=== PATIENT | male | born 1945 | race Caucasian/White ===

== ENCOUNTER 2021-07-25 09:21 | Outpatient (RCR) | payer OTHER, SELFPAY | END 2021-08-21 23:59 | disposition home or self-care (01) | LOC: SPT 09:21 | PROVIDERS: PCP Family Medicine; Referring Provider Family Medicine; Visit Provider Family Medicine | DX: R26.0 Ataxic gait (principal) | CPT/HCPCS: 97110; 97112; 97162 ==

== ENCOUNTER 2021-08-15 11:46 | Outpatient (CLI) | payer OTHER, SELFPAY ==
--- NOTE | 2021-08-15 12:10 | CT_ITS ---
WS: [id number] CT CHEST TECHNIQUE: Contrast enhanced CT of the chest with coronal and sagittal reformatted images. CLINICAL INFORMATION: H/O LUNG CANCER INCREASED CONGESTION COMPARISON: None. DLP: 877.[address] scans at [facility] use at least one of these dose optimization techniques: automated e xposure control; mA and/or kV adjustment per patient size (includes targeted exams where dose is matc hed to clinical indication); or iterative reconstruction. FINDINGS: No comparisons available Moderate chronic emphysematous changes. Round atelectasis in the right infrahilar extending along the posterior mediastinum with air bronchograms. Small left pleural effusion. No other suspicious pulmon yadira parenchymal abnormalities Heterogeneous nodule involving the thyroid isthmus measuring 2.7 x 2.2 CM. No axillary lymphadenopath y. A few prominent paratracheal lymph nodes the largest measuring 1.3 CM. No hilar lymphadenopathy. Aortic calcification. Normal caliber thoracic aorta. Sternotomy. Adrenal glands are normal. Small left renal cyst measuring 1.5 cm. Cholelithiasis. Normal GE junction. Fatty atrophy of the pancreas. Sternotomy with mediastinal clips. CT/CT chest w con* [id number] IMPRESSION: 1. Moderate chronic edematous changes. 2. Region of partial consolidation in the right infrahilar and right lower lob e with air bronchograms consistent with round atelectasis. Measuring 4.3 x 2.2 cm 3. Small left pleural effusion. 4. No other suspicious pulmonary parenchymal opacities. 5. Prominent pretracheal lymph node measuring 1.3 cm. 6. Cholelithiasis. This can be followed up with ultrasound. 7. Left renal cyst measuring 1.5 CM. 8. Heterogeneous nodule involving the thyroid isthmus measuring 2.7 x 2.2 CCM
--- NOTE | 2021-08-15 12:11 | USCV_ITS ---
Garcia Lundy Age: 76 Gender: M : 1945 Exam Date: 08/15/2021 12:22 Ordering Phys: Fouzia Carpenter MD Technologist: Honey Norman [place] [facility] [place]: SOB BP: 148 / 72 HR: 76 Rhythm: Sinus Technical Quality: Adequate MEASUREMENTS (Male / Female) Normal Values 2D ECHO LV Diastolic Diameter PLAX 4.6 cm 4.2 - 5.9 / 3.9 - 5.3 cm LV Systolic Diameter PLAX 3.9 cm LV Chamber Size 4.1 cm IVS Diastolic Thickness 0.9 cm 0.6 - 1.0 / 0.6 - 0.9 cm IVS Systolic Thickness 1.5 cm LVPW Diastolic Thickness 1.4 cm 0.6 - 1.0 / 0.6 - 0.9 cm LVPW Systolic Thickness 1.2 cm RV Chamber Size 2.9 cm LVOT Diameter 2.1 cm LV Ejection Fraction 2D Teich 32.8 % LV Ejection Fraction MOD 2C 52.0 % LV Ejection Fraction 2C AL 51.9 % LA Diameter 3.8 cm LA Width 3.3 cm LA Height 4.0 cm RA Width 3.4 cm RA Height 4.2 cm Aorta at Sinotubular Diameter 3.5 cm M-MODE Aortic Annulus Diameter 3.5 cm LA Ao Ratio MM 1.3 DOPPLER AV Peak Velocity 111.0 cm/s LVOT Peak Velocity 62.0 cm/s AV Area Cont Eq vti 1.9 cm squared AV Area Cont Eq pk 1.9 cm squared MV Area PHT 4.4 cm squared Mitral E to A Ratio 1.5 MV E' Velocity 60.5 cm/s Mitral E to MV E' Ratio 14.6 Mitral E to LV E' Lateral Ratio 10.3 Mitral E to LV E' Septal Ratio 25.5 TR Peak Velocity 188.2 cm/s TR Peak Gradient 14.2 mmHg TR Mean Velocity 116.5 cm/s TR Mean Gradient 6.6 mmHg TR Velocity Time Integral 38.8 cm TV Peak E Velocity 90.0 cm/s Right Atrial Pressure 3.0 mmHg Pulmonary Artery Systolic Pressu 17.2 mmHg PV Peak Velocity 56.0 cm/s RV Acceleration Time 0.1 s RV Ejection Time 0.3 s RV AcT/ET 0.3 FINDINGS Left Ventricle Normal left ventricular size. LV systolic function is normal with EF of 50-55%. No regional wall motion abnormalities. Grade 2 diastolic dysfunction Right Ventricle The right ventricle is normal in size and function. Right Atrium The right atrium is normal in size. Left Atrium The left atrium is mildly dilated Mitral Valve Mitral valve is thickened without significant stenosis or prolapse. There is mild mitral regurgitation. Aortic Valve Structurally normal aortic valve without significant sclerosis or stenosis. There is no aortic regurgitation. Tricuspid Valve Structurally normal tricuspid valve without significant stenosis or regurgitation. Insufficient TR jet to calculate RVSP Pulmonic Valve Structurally normal pulmonic valve without significant stenosis. There is no pulmonic regurgitation. Pericardium Normal pericardium without effusion. Aorta Normal ascending aorta dimension. CONCLUSIONS LV systolic function is normal with EF of 50-55%. Grade 2 diastolic dysfunction Mildly dilated LA Mild mitral regurgitation No comparison studies are available Pedro Cuellar MD (Electronically Signed) Final Date: 21 August 2021 11:17 S
[2021-08-15] MEDS: iodixanol 320 mg/mL 100mL Btl IV (12:58)
== END 2021-08-15 11:47 | disposition home or self-care (01) ==
LOC: US 11:50
PROVIDERS: PCP Family Medicine; Visit Provider Family Medicine
DX: I50.9 Heart failure, unspecified (principal); Z85.118 Personal history of other malignant neoplasm of bronchus and lung; R06.02 Shortness of breath; I34.0 Nonrheumatic mitral (valve) insufficiency
CPT/HCPCS: 71260; 93306

== ENCOUNTER 2021-08-22 06:00 | Outpatient (RCR) | payer OTHER, SELFPAY | END 2021-09-21 23:59 | disposition home or self-care (01) | LOC: SPT 06:00 | PROVIDERS: PCP Family Medicine; Referring Provider Family Medicine; Visit Provider Family Medicine | DX: M54.50 Low back pain, unspecified (principal) | CPT/HCPCS: 97110 ==

== ENCOUNTER 2021-11-20 08:01 | Outpatient (CLI) | payer OTHER, SELFPAY ==
--- NOTE | 2021-11-20 08:06 | USCV_ITS ---
Garcia Lundy Age: 76 Gender: M : 1945 Exam Date: 11/20/2021 08:24 Ordering Phys: Marcelo De Santiago DO Technologist: Martha Price Exam Location: [facility] – [place] Indication: RIGHT BRUIT Risk Factors: Previous Vascular Surgery: Right Brachial BP: / Left Brachial BP: / Right Left Velocity (cm/s) Spectral Plaque Velocity (cm/s) Spectral Plaque Syst/Diast Broadening Syst/Diast Broadening 86.00/ 11.00 Prox CCA 76.10 / 18.70 69.50/ 7.70 Mid CCA 56.20 / 19.80 116.90/13.20 Distal CCA 42.70 / 19.40 / Prox ICA 65.80 / 22.20 / Mid ICA 95.80 / 27.00 / Distal ICA 96.10 / 31.70 195.90 ECA 633.50 ICA/CCA 1.26 Not Vertebral Antegrade Visualized / cm/s 62.40/ 9.40 cm/s Bi Subclavian Tri 188.5 197.3 0 0 CONCLUSIONS Left ICA stenosis <50%. Stenosis left ECA >50% Normal antegrade Doppler flow noted in the left vertebral artery. Right ICA appears occluded just distal to carotid bulb. Recommend further evaluation with CTA. Moderate atheromatous plaque right CCA and carotid bulb.. Right vertebral artery not visualized Syd Arriaga MD (Electronically Signed) Final Date: 20 November 2021 10:41 S
== END 2021-11-20 08:02 | disposition home or self-care (01) ==
LOC: RAD 08:03
PROVIDERS: PCP Family Medicine; Visit Provider Emergency Medicine Emergency Medical Services
DX: R09.89 Other specified symptoms and signs involving the circulatory and respiratory systems (principal); I65.23 Occlusion and stenosis of bilateral carotid arteries
CPT/HCPCS: 93880

== ENCOUNTER 2021-12-03 12:43 | Outpatient (CLI) | payer OTHER, SELFPAY ==
--- NOTE | 2021-12-03 13:03 | US_ITS ---
WS: [id number] ULTRASOUND THYROID TECHNIQUE: Ultrasound of the thyroid. CLINICAL INFORMATION: CYST ON THYROID COMPARISON: None. FINDINGS: Left thyroid is surgically absent. Enlarged heterogeneous right thyroid with multiple nodul es compatible with multinodular goiter. Solid right thyroid nodule measuring 1.2 x 1.9 x 0.9 CCM. Add itional dominant nodule on the isthmus measuring 2.9 x 1.5 x 2.7 CCM. Thyroid: Right and left thyroid lobes are normal in size and echotexture. No thyroid nodules are pres ent. Right thyroid lobe: cm x 2.0 cm x 2.8 cm Isthmus: 1.5 mm. Cervical lymphadenopathy: None. US/US thyroid [id number] IMPRESSION: 1. Left thyroid lobe is surgically absent. 2. Enlarged heterogeneous right thyroid lobe with multiple nodules compatible with multinodular goiter. 3. Dominant nodule along the isthmus measuring 2.9 x 1.5 x 2.7 CM. This can be further evaluated with FNA.
== END 2021-12-03 12:44 | disposition home or self-care (01) ==
LOC: RAD 12:44
PROVIDERS: PCP Family Medicine; Visit Provider Emergency Medicine Emergency Medical Services
DX: Z01.89 Encounter for other specified special examinations (principal); E04.1 Nontoxic single thyroid nodule
CPT/HCPCS: 76536

== ENCOUNTER 2021-12-22 14:05 | Inpatient (IN) | payer OTHER, SELFPAY ==
[2021-12-22 14:22] VITALS: BP 151/88; O2SAT 91; BMI 25.0
--- NOTE | 2021-12-22 14:23 | XR_ITS ---
WS: [id number] XR chest 1V portable [id number] REASON FOR EXAM: dyspnea FINDINGS: Previous sternotomy with multiple clips indicating multi lesion multi vessel coronary artery bypass s urgery. Thoracic aorta normal for age. Normal heart size. Diffuse reticular and groundglass lung opacities in the left mid and lower lung koo. Similar type lung opacities in the right upper peripheral lung field. Bony thorax intact. XR/XR chest 1V portable [id number] IMPRESSION: Bilateral lung opacities as above. Findings are compatible with subacute pneumo nitis. The location and appearance of the abnormality in the right lung is very suggestive of Covid pneumonitis. Findings are not suggestive of congestive heart failure.
[2021-12-22 14:32] LABS: Basophils % 0.1 %; Hematocrit 43.9 % (42.0-52.0); Hemoglobin 14.6 g/dL (11.7-16.6); Lymphocytes # 0.9 10^3/uL (0.8-4.8); Lymphocytes % 8.6 %; Mean Corpuscular HGB Conc 33.3 g/dL (30.0-36.0); Mean Corpuscular Hemoglobin 29.8 pg (28.0-34.0); Mean Corpuscular Volume 89.6 fl (80-94); Mean Platelet Volume 11.8 fL (7.4-10.4); Monocytes # 0.8 10^3/uL (0.2-0.9); Monocytes % 7.7 %; Neutrophils # 8.95 10^3/uL (1.8-7.7); Neutrophils % 82.8 %; Nucleated Red Blood Cells % 0 %; Platelet Count 262 10^3/cmm (130-400); Red Cell Distribution Width 13.3 % (12.1-15.1); White Blood Count 10.8 10^3/uL (4.0-10.0)
[2021-12-22 14:56] LABS: Troponin(5th) Baseline 57 ng/L (0-15)
[2021-12-22 15:00] LABS: NT Pro B Type Natriuretic Pept 3202 pg/mL (0-450); Procalcitonin 0.28 ng/mL (0-0.5)
[2021-12-22 15:08] LABS: Alanine Aminotransferase 25 U/L (0-41); Albumin Level 3.7 g/dL (3.5-5.2); Alkaline Phosphatase 81 IU/L (40-130); Anion Gap 18.5 (5-19); Aspartate Amino Transferase 57 U/L (0-40); Blood Urea Nitrogen 20 mg/dL (8-23); Calcium 9.4 mg/dL (8.5-10.5); Carbon Dioxide 19 mmol/L (22-29); Chloride 104 mmol/L (98-107); Globulin 3.2 g/dL (1.3-4.6); Glucose 292 mg/dL (65-115); Lipase 38 U/L (13-60); Osmolality Calculated 299 mOsm/kg (285-295); Potassium 3.5 mmol/L (3.5-5.1); Sodium 138 mmol/L (136-145); Total Bilirubin 0.8 mg/dL (0.15-1.2); Total Protein 6.9 g/dL (6.6-8.7)
[2021-12-22 15:12] LABS: C Reactive Protein 88.4 mg/L (0.0-4.9)
--- NOTE | 2021-12-22 15:26 | ED_ITS ---
HPI - General Adult General: Chief complaint: Shortness of Breath/Dyspnea Stated complaint: COUGH, SOB, CONFUSED Time Seen by Provider: 12/22/21 14:23 History of Present Illness: CC: Shortness of breath, fever and generalized weakness HPI: This is a [76]yo patient w/ hx of CABG x 5, CHF, HTN, DM presenting to the ED with malaise, generalized weakness, cough sputum production, and fever at home x 5days. Since onset of symptoms, has had some shortness of breath and decreased PO intake. NO recent travel. Reports nausea/vomiting/diarrhea. Denies []chest pain, diaphoresis, other GI or complaints. Denies any pleuritic chest pain, recent surgery/immobilization/travel, or hematemesis or hx of VTE in the past. Onset: 5 days ago Duration: ongoing for the last 5 days Location: home Severity: moderate Associated symptoms: Reports dyspnea, malaise, nausea and vomiting; Deny chest pain, rash or palpitations Review of Systems Const: Reports: fever(s), chills, fatigue, malaise and other (generalized weakness) Eyes: Denies: change in vision ENMT: Denies: mouth pain Card: Denies: chest pain or palpitations Resp: Reports: dyspnea and non-productive cough GI: Reports: nausea, vomiting and diarrhea; Denies: abdominal pain : Denies: dysuria Musc: Denies: extremity pain Skin/Breast: Denies: rash or new lesions Neuro: Denies: weakness in extremities Psych: Reports: other (Normal mood) [place]/Lymph: Denies: easy bruising PFS ED PFSH: Medical History Atherosclerotic heart disease of [place] coronary artery with unspecified angina pectoris Coronary stent occlusion Essential hypertension Gastro-esophageal reflux disease without esophagitis History of left common carotid artery stent placement Hyperlipidemia, unspecified Low back pain Malignant neoplasm of bronchus Type 2 diabetes mellitus Type 2 diabetes mellitus with diabetic nephropathy Surgical History S/P CABG x 5 Family History Brother CHF (congestive heart failure) Mother Lymphoma Sister Cancer Father No problems noted. Social History Smoking and tobacco status: former smoker Alcohol intake: never Physical Exam Const: COMMON NORMALS: alert HENMT: COMMON NORMALS: atraumatic HEAD & SCALP: atraumatic MOUTH: moist mucous membranes not abnormal Eye: COMMON NORMALS: EOMs intact bilaterally and conjunctivae normal CONJUNCTIVA: Yes conjunctivae normal Neck/C-Spine: COMMON NORMALS: full ROM and supple Resp: COMMON NORMALS: normal respiratory effort and clear to auscultation bila terally AUSCULTATION: clear to auscultation bilaterally Cardio: COMMON NORMALS: regular rate RATE: regular rate GI: COMMON NORMALS: Soft to palpation and non-tender PALPATION: Yes Soft to palpation Extremity: COMMON NORMALS: full ROM Neuro: SENSORIUM/ORIENTATION: Yes alert MOTOR EXAM: No Abnormal motor strength present and Other motor observations present (no focal motor deficits) Psych: COMMON NORMALS: speech normal SPEECH: Yes normal speech MOOD & AFFECT: Yes euthymic mood Course Vital Signs: Vital signs: Vital Signs Blood Pressure 151/88 12/22/21 14:22 Pulse Oximetry 91 12/22/21 14:22 [facility] - General Adult Medical Decision Making [76]yo patient presenting to the ED with shortness of breath, cough, and malaise concerning for pneumonia with findings of fever, coarse breath sound and hypoxemia to 85% that imrpoved to 93% on 5-6L of NC. Given History, Exam, and Workup presentation most consistent with pneumonia.Presentation not consistent with PE, COPD exacerbation, Pneumothorax, TB, Atypical ACS, Esophageal Rupture, Toxic Exposure, Foreign Body Airway Obstruction. Workup: XR Chest, Covid labs Intervention: Tylenol 1gram, PO challenge, serial reassessment, oxygen, remdesivir/decadron/tocilizumab [3:13pm] On reassessment, XR findings of ground-glass opacity consistent iwth covid Findings consistent with viral pneumonia, suspected COVID. Clinically, fever improved with tylenol. Patient continues to be in moderate respiratory distress with O2 sat at 93% on 6LC that dropped significally on ambulation while observed in the ED. Multiple comorbidities along with no significant improvement in the ED indicates the patient is a candidate for inpatient admission. I have offered admission and the patient agrees with the plan. Patient continues to AAOx3, without significant increased work of breathing and I do not suspect the patient will decompensate on the wards requiring invasive and non-invasive positive pressure ventilation. ProBNP of 3K will give 40mg of lasix. Troponin of 57 likely demand related --- will trend. S/p ASA Disposition: Admission. Lab Data : 12/22/21 14:25 12/22/21 14:25 Radiology Impressions Chest X-Ray 12/22/21 14:23 IMPRESSION: Bilateral lung opacities as above. Findings are compatible with subacute pneumonitis. The location and appearance of the abnormality in the right lung is very suggestive of Covid pneumonitis. Findings are not suggestive of congestive heart failure. Laboratory Results WBC 10.8 10^3/uL (4.0-10.0) H 12/22/21 14:25 RBC 4.90 10^6/uL (4.1-5.3) 12/22/21 14:25 Hgb 14.6 g/dL (11.7-16.6) 12/22/21 14:25 Hct 43.9 % (42.0-52.0) 12/22/21 14:25 MCV 89.6 fl (80-94) 12/22/21 14:25 MCH 29.8 pg (28.0-34.0) 12/22/21 14:25 MCHC 33.3 g/dL (30.0-36.0) 12/22/21 14:25 RDW 13.3 % (12.1-15.1) 12/22/21 14:25 Plt Count 262 10^3/cmm (130-400) 12/22/21 14:25 MPV 11.8 fL (7.4-10.4) H 12/22/21 14:25 Neut % (Auto) 82.8 % 12/22/21 14:25 Lymph % (Auto) 8.6 % 12/22/21 14:25 [place] % (Auto) 7.7 % 12/22/21 14:25 Eos % (Auto) 0.0 % 12/22/21 14:25 Baso % (Auto) 0.1 % 12/22/21 14:25 Neut # (Auto) 8.95 10^3/uL (1.8-7.7) H 12/22/21 14:25 Lymph # (Auto) 0.9 10^3/uL (0.8-4.8) 12/22/21 14:25 [place] # (Auto) 0.8 10^3/uL (0.2-0.9) 12/22/21 14:25 Eos # (Auto) 0.0 10^3/uL (0.0-0.8) 12/22/21 14:25 Baso # (Auto) 0.0 10^3/uL (0.0-0.1) 12/22/21 14:25 Nucleated RBC % (auto) 0 % 12/22/21 14:25 Nucleated RBCs # 0.0 /100WBC 12/22/21 14:25 Sodium 138 mmol/L (136-145) 12/22/21 14:25 Sodium Cancelled 12/22/21 14:25 Potassium 3.5 mmol/L (3.5-5.1) 12/22/21 14:25 Potassium Cancelled 12/22/21 14:25 Chloride 104 mmol/L (98-107) 12/22/21 14:25 Chloride Cancelled 12/22/21 14:25 Carbon Dioxide 19 mmol/L (22-29) L 12/22/21 14:25 Carbon Dioxide Cancelled 12/22/21 14:25 Anion Gap 18.5 (5-19) 12/22/21 14:25 Anion Gap Cancelled 12/22/21 14:25 BUN 20 mg/dL (8-23) 12/22/21 14:25 BUN Cancelled 12/22/21 14:25 Creatinine 1.2 mg/dL (0.7-1.2) 12/22/21 14:25 Creatinine Cancelled 12/22/21 14:25 GFR Calculation Cancelled 12/22/21 14:25 GFR Calculation Not Reportable 12/22/21 14:25 Glucose 292 mg/dL (65-115) H 12/22/21 14:25 Glucose Cancelled 12/22/21 14:25 Calculated Osmolality 299 mOsm/kg (285-295) H 12/22/21 14:25 Calculated Osmolality Cancelled 12/22/21 14:25 Calcium 9.4 mg/dL (8.5-10.5) 12/22/21 14:25 Calcium Cancelled 12/22/21 14:25 Total Bilirubin 0.8 mg/dL (0.15-1.2) 12/22/21 14:25 AST 57 U/L (0-40) H 12/22/21 14:25 ALT 25 U/L (0-41) 12/22/21 14:25 Alkaline Phosphatase 81 IU/L (40-130) 12/22/21 14:25 Troponin T Baseline 57 ng/L (0-15) H 12/22/21 14:25 C-Reactive Protein 88.4 mg/L (0.0-4.9) H 12/22/21 14:25 NT-Pro-B Natriuret Pep 3202 pg/mL (0-450) H 12/22/21 14:25 Total Protein 6.9 g/dL (6.6-8.7) 12/22/21 14:25 Albumin 3.7 g/dL (3.5-5.2) 12/22/21 14:25 Globulin 3.2 g/dL (1.3-4.6) 12/22/21 14:25 Lipase 38 U/L (13-60) 12/22/21 14:25 Procalcitonin 0.28 ng/mL (0-0.5) 12/22/21 14:25 Discharge Plan Discharge Patient Disposition: Admitted As Inpatient Clinical Impression: COVID, 2019 novel coronavirus-infected pneumonia (NCIP), Acute exacerbation of CHF (congestive heart failure) Condition: Stable Coding Level of Care Code ED Ground Mixer for Brandon Jaime
[2021-12-22 15:42] LABS: ABG PCO2 34.7 mmHg (35-45); Alveolar-Arterial Oxygen Gradi 23.8 mmHg (5-10); Arterial Blood Gas Hematocrit 44.1 % (42-52); Base Excess ABG -2.4 mmol/L (-2.0-2.0); Blood Gas Allen Test Pos; Blood Gas Operator Identificat ED; Blood Gas Sample Site Radial, right; Blood Gas Sample Type Arterial; Carboxyhemoglobin 0.2 %THgb (0.4-20.1); HCO3 ABG 21.7 mmol/L (22-26); HGB O2 Sat 88.3 % (95-100); Ionized Calcium Level - ABG 1.4 mmol/L (1.1-1.4); Methemoglobin 1.6 % (0.4-1.5); Oxygen Device NC; PO2 ABG 57.9 mmHg (80.0-100.0); Potassium Level - ABG 3.4 mmol/L (3.5-5.0); Total Hemoglobin 14.4 g/dL (14-18)
--- NOTE | 2021-12-22 16:18 | PC.PHAR ---
pt unable to verify meds-pts daughter and poa states the pt hasnt been taking all his meds states the pt has been taking lasix and clopidogrel-other meds entered are [facility]-notes are made in the pharmacy comments
[2021-12-22 16:50] LABS: Troponin 5 2HR 71.56 ng/L (0-15)
[2021-12-22 17:01] LABS: Troponin 5 2HR Delta 14.56 ABS# (0-10)
--- NOTE | 2021-12-22 17:03 | P.HP_ITS ---
Providers/Chief Complaint Admitting Physician: Simeon Hook MD Primary Care Provider: Marcelo De Santiago DO Chief Complaint: COUGH, SOB, CONFUSED History of Present Illness Garcia Lundy is a 76 year old male presented today with chief complaint of worsening shortness of breath and confusion. I spoke with his daughter as patient is not able to provide any history. He is only oriented to himself. Daughter is able to tell me that everyone in the household has been suffering wi th COVID-19 infection. His symptoms started on 12/17 with shortness of breath chest congestion and confusion. His symptoms gradually worsened and today he was sent for further evaluation in the ER. In the ER he was diagnosed with hypoxia 85% on room air, he was put on 5 L nasal cannula, he was started on COVID-19 treatment, PCR has been sent. 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, daughter is her DPOA Patient is full code, however daughter is stating that under political influence her father stated that probably he does not want to be on any ventilator, daughter wants to be notified in case of any emergency I have started him on baricitinib remdesivir Decadron Continue Lasix Will give 10 units of NovoLog for hyperglycemia No need of IV fluids, high BNP consistent with COVID-19 related CHF exacerbation Review of Systems General: Reports: ROS unobtainable due to medical condition (Delirium related to COVID-19) Medications/Allergies Home Medications Medication Instructions Recorded Confirmed Last Taken Type aspirin 325 mg tablet 325 mg PO DAILY 07/29/21 12/22/21 Unknown History clopidogrel 75 mg tablet 75 mg PO DAILY 07/29/21 12/22/21 Unknown History insulin glargine 100 unit/mL (3 18 unit SUBCUT BID 07/29/21 12/22/21 Unknown History mL) subcutaneous pen (Lantus Solostar U-100 Insulin) losartan 100 mg tablet 50 mg PO DAILY 07/29/21 12/22/21 Unknown History omeprazole 20 mg tablet,delayed 20 mg PO BID 07/29/21 12/22/21 Unknown History release rosuvastatin 20 mg tablet 20 mg PO DAILY 07/29/21 12/22/21 Unknown History albuterol sulfate 90 mcg/actuation 2 puff INHALATION Q4H PRN 12/22/21 12/22/21 Unknown History aerosol inhaler (ProAir HFA) ascorbic acid (vitamin C) 500 mg 500 mg PO DAILY 12/22/21 12/22/21 Unknown History tablet (Vitamin C) fluticasone 100 mcg-salmeterol 50 1 inh INHALATION BID 12/22/21 12/22/21 Unknown History mcg/dose blistr powdr for inhalation (Advair Diskus) furosemide 20 mg tablet (Lasix) 20 mg PO QAM 12/22/21 12/22/21 Unknown History insulin aspart U-100 100 unit/mL 16 unit SUBCUT TID 12/22/21 12/22/21 Unknown History (3 mL) subcutaneous pen (Novolog Flexpen U-100 Insulin aspart) magnesium oxide 400 mg PO DAILY 12/22/21 12/22/21 Unknown History metoprolol tartrate 100 mg tablet 50 mg PO BID 12/22/21 12/22/21 Unknown History multivitamin 1 tab PO DAILY 12/22/21 12/22/21 Unknown History potassium chloride 20 mEq 20 meq PO DAILY 12/22/21 12/22/21 Unknown History tablet,extended release Allergies Allergy/AdvReac Type Severity Reaction Status Date / Time atorvastatin Allergy Unknown Unknown Verified 12/22/21 14:22 Penicillins Allergy Unknown Unknown Verified 12/22/21 14:22 niacin Allergy Unknown Verified 12/22/21 16:18 PFSH Acute PFSH: Medical History Atherosclerotic heart disease of [place] coronary artery with unspecified angina pectoris Carotid artery disease Coronary stent occlusion Essential hypertension Gastro-esophageal reflux disease without esophagitis History of left common carotid artery stent placement Hyperlipidemia, unspecified Internal carotid artery stent present Left-sided Low back pain Malignant neoplasm of bronchus Type 2 diabetes mellitus Type 2 diabetes mellitus with diabetic nephropathy Surgical History S/P CABG x 5 Family History Brother CHF (congestive heart failure) Mother Lymphoma Sister Cancer Father No problems noted. Social History Smoking and tobacco status: former smoker Alcohol intake: never Vitals/I&O/Wt Last Vital Signs BP 151/88 12/22/21 14:22 Pulse Ox 91 12/22/21 14:22 Weight last 48 hrs Weight 83.915 kg Physical Exam Narrative: EXAM NARRATIVE: Very pleasant cooperative elderly male Oriented to himself Nonfocal neuro exam He is having word finding difficulty No slurring of speech Nonfocal neuro exam EOMI, PERRLA Mild signs of fluid overload Bilateral breath sounds with mild rhonchi at the bases Abdomen soft Data : 12/22/21 14:25 12/22/21 14:25 A&P Assessment and plan (1) COVID: Status: Acute (2) Acute exacerbation of CHF (congestive heart failure): Status: Acute (3) Chronic kidney disease, stage III (moderate): Status: Acute (4) Type 2 diabetes mellitus with diabetic nephropathy: Status: Acute (5) Delirium: Status: Acute Plan Delirium related to COVID-19 Currently on 5 L nasal cannula Start baricitinib Decadron and remdesivir Watch for hyperglycemia We will request CTA chest rule out PE For his confusion I would also request CT head and CTA head and neck Continue aspirin, Plavix DVT prophylaxis Lovenox Inflammatory markers in the morning Patient is full code, daughter is his DPOA wants to be notified in case of an emergency or intubation needed Daughter is requesting that we should avoid putting on politics on television in his room which makes him very nervous and short of breath sometimes Acute CHF exacerbation related to COVID-19 related possible myocarditis Continue diuretics along with potassium supplementation Avoid fluids Cardiac consistent carb diet Attestations Medical Necessity Statement*: Anticipating more than 2 midnights for multicomorbid condition with COVID-19 Time Spent in Patient Care: 40 minutes Coding Level of Care Code Acute Diagnostic Tech for Brandon Fwarvin Diagnoses COVID U07.1 Acute exacerbation of CHF (congestive heart failure) I50.9 Chronic kidney disease, stage III (moderate) N18.30 Type 2 diabetes mellitus with diabetic nephropathy E11.21 Delirium R41.0
--- NOTE | 2021-12-22 17:11 | CTR_ITS ---
PROCEDURE INFORMATION: Exam: CTA Chest With Contrast Exam date and time: 12/22/2021 5:11 PM Age: 76 years old Clinical indication: Shortness of breath; Prior surgery; Surgery type: Cabg x 5; Additional info: Hypoxia TECHNIQUE: Imaging protocol: Computed tomographic angiography of the chest with contrast. 3D rendering (Not supervised by radiologist): MIP and/or 3D reconstructed images were created by the technologist. Radiation optimization: All CT scans at this facility use at least one of these dose optimization techniques: automated exposure control; mA and/or kV adjustment per patient size (includes targeted exams where dose is matched to clinical indication); or iterative reconstruction. Contrast material: OMNI 350; Contrast volume: 63 ml; Contrast route: INTRAVENOUS (IV); COMPARISON: CT chest w con* [id number] 08/15/2021 12:50 PM RADIATION DOSE METRICS: Total DLP (mGy-cm): 585.77 FINDINGS: Tubes, catheters and devices: A pacemaker device is present, and its leads are in appropriate position. Pulmonary arteries: There is no pulmonary embolus. Aorta: Unremarkable. No aortic aneurysm. No aortic dissection. Thyroid: There is a 2.6 cm hypodense nodule of the thyroid isthmus unchanged compared to the prior exam. Lungs: There are severe emphysematous changes and apical pulmonary fibrosis. Multifocal ground-glass and airspace opacities are noted in the lungs concerning for pneumonic infiltrates including COVID-19 pneumonia. Previously noted rounded atelectasis in the medial right lower lobe is unchanged. Pleural spaces: Unremarkable. No pneumothorax. No pleural effusion. Heart: The heart is enlarged. Lymph nodes: There is mediastinal adenopathy including the 1.6 cm short axis subcarinal lymph node and multiple borderline enlarged bilateral hilar lymph nodes. Diaphragm: A small hiatal hernia is present. Gallbladder and bile ducts: Multiple calcified gallstones are present. There is no wall thickening or pericholecystic fluid to suggest cholecystitis. There is no common bile duct dilation. There is a 3.2 cm calculus in the cystic duct or proximal common bile duct series 2, image 453. Adrenal glands: The adrenal glands are normal. Kidneys and ureters: There is a 1.7 cm upper pole simple cyst in the left kidney. No follow-up is necessary. Stomach and bowel: There is excessive colonic stool content. Bones/joints: Sternotomy wires and mediastinal surgical clips are present, consistent with previous coronary arterial bypass grafting. Soft tissues: Unremarkable. CT/CT angio chest PE protcl [id number] IMPRESSION: 1. There is no pulmonary embolus. 2. Multifocal ground-glass and airspace opacities are noted in the lungs concerning for pneumonic infiltrates including COVID-19 pneumonia. Cholelithiasis without cholecystitis is noted. There is a 3.2 mm calculus in the cystic duct or proximal common bile duct. Ultrasound may be helpful for further evaluation is clinically warranted. No duct dilatation is identified. 3. There is a 2.6 cm hypodense nodule of the thyroid isthmus unchanged compared to the prior exam. This has been evaluated with recent ultrasound. COMMENTS: Consistent with the [employer]'s Incidental Findings Committee white paper (J Am Aislinn Radiol 2018): Any incidental renal lesion less than 1 cm or classified as too small to characterize, or any incidental cystic renal lesion characterized as simple-appearing, is likely benign. No follow-up imaging is recommended for these lesions per consensus recommendations based on imaging criteria.
--- NOTE | 2021-12-22 17:21 | CTR_ITS ---
PROCEDURE INFORMATION: Exam: CT Head Without Contrast Exam date and time: 12/22/2021 5:21 PM Age: 76 years old Clinical indication: Altered mental status/memory loss; Additional info: Confusion TECHNIQUE: Imaging protocol: Computed tomography of the head without contrast. Radiation optimization: All CT scans at this facility use at least one of these dose optimization techniques: automated exposure control; mA and/or kV adjustment per patient size (includes targeted exams where dose is matched to clinical indication); or iterative reconstruction. COMPARISON: No relevant prior studies available. RADIATION DOSE METRICS: Total DLP (mGy-cm): 969.46 FINDINGS: Brain: There is chronic appearing cortical infarct in the right occipital lobe. There is moderate cortical atrophy. Low-density changes in the white matter are consistent with nonspecific small vessel chronic ischemic change. There is no intracranial mass, hemorrhage or edema. Cerebral ventricles: No ventriculomegaly. Paranasal sinuses: There is a small mucous retention cyst in the left maxillary antrum. Mastoid air cells: Visualized mastoid air cells are well aerated. Bones/joints: Unremarkable. No acute fracture. Soft tissues: Unremarkable. CT/CT head wo con* [id number] IMPRESSION: 1. Old cortical infarct 2. No acute intracranial finding.
--- NOTE | 2021-12-22 17:21 | CTR_ITS ---
PROCEDURE INFORMATION: Exam: CT Angiography Head With Contrast, Arteriography Exam date and time: 12/22/2021 5:21 PM Age: 76 years old Clinical indication: Cognitive deficit; Altered mental status; Additional info: Confusion TECHNIQUE: Imaging protocol: Computed tomography angiography of the head with contrast. Exam focused on the arteries. 3D rendering (Not supervised by radiologist): MIP and/or 3D reconstructed images were created by the technologist. Radiation optimization: All CT scans at this facility use at least one of these dose optimization techniques: automated exposure control; mA and/or kV adjustment per patient size (includes targeted exams where dose is matched to clinical indication); or iterative reconstruction. Contrast material: OMNI 350; Contrast volume: 95 ml; Contrast route: INTRAVENOUS (IV); COMPARISON: CT head wo con* [id number] 12/22/2021 6:02 PM RADIATION DOSE METRICS: Total DLP (mGy-cm): 2434.78 FINDINGS: ANTERIOR CIRCULATION: Right internal carotid artery: There is complete occlusion of the right internal carotid artery. Right middle cerebral artery: Right middle cerebral artery is patent, apparently supplied via collateral flow from the anterior cerebral artery. Right anterior cerebral artery: Right anterior cerebral artery is patent and is supplied via a large anterior communicating artery. Left internal carotid artery: There are atherosclerotic calcifications in the left carotid siphon without significant stenosis. Left middle cerebral artery: Unremarkable. No occlusion or significant stenosis. No aneurysm. Left anterior cerebral artery: Unremarkable. No occlusion or significant stenosis. No aneurysm. POSTERIOR CIRCULATION: Right vertebral artery: There is some atherosclerotic calcification and mild stenosis in the right V4 vertebral artery. Left vertebral artery: There is atherosclerotic calcification in the left vertebral artery with long segment of mild to moderate stenosis in the V3/V4 segment and some severe focal stenosis in the mid left V4 segment. Basilar artery: Unremarkable. No occlusion or significant stenosis. No aneurysm. Right posterior cerebral artery: Unremarkable. No occlusion or significant stenosis. No aneurysm. Left posterior cerebral artery: There is mild focal stenosis in the left P1 posterior cerebral artery segment. Left posterior communicating artery: There is a patent left posterior communicating artery. Brain: No definite mass, mass effect, or midline shift. Old right occipital infarct as described on prior CT brain. Cerebral ventricles: No ventriculomegaly. Bones/joints: Unremarkable. No acute fracture. Soft tissues: Unremarkable. PROCEDURE INFORMATION: Exam: CT Angiography Neck With Contrast Exam date and time: 12/22/2021 5:21 PM Age: 76 years old Clinical indication: Cognitive deficit; Altered mental status; Additional info: Confusion TECHNIQUE: Imaging protocol: Computed tomography angiography of the neck with contrast. 3D rendering (Not supervised by radiologist): MIP and/or 3D reconstructed images were created by the technologist. Radiation optimization: All CT scans at this facility use at least one of these dose optimization techniques: automated exposure control; mA and/or kV adjustment per patient size (includes targeted exams where dose is matched to clinical indication); or iterative reconstruction. Contrast material: OMNI 350; Contrast volume: 95 ml; Contrast route: INTRAVENOUS (IV); COMPARISON: CT head wo con* [id number] 12/22/2021 6:02 PM RADIATION DOSE METRICS: Total DLP (mGy-cm): 2434.78 FINDINGS: Right common carotid artery: There is atherosclerotic plaque in the mid right common carotid artery with approximately 50% stenosis. Right internal carotid artery: There is extensive atherosclerotic plaque and calcification at the right carotid bifurcation. The right internal carotid artery is totally occluded from its origin. The age in acuity of this occlusion is uncertain Right external carotid artery: There is moderate stenosis at the origin of the right external carotid artery. Left common carotid artery: No stenosis. No dissection or occlusion. Left internal carotid artery: There is atherosclerotic plaque and calcification at the left carotid bifurcation. There is no significant stenosis in the left internal carotid artery as measured according to the NASCET criteria. Left external carotid artery: There is severe stenosis of the origin of the left external carotid artery. Right vertebral artery: No stenosis. No dissection or occlusion. Left vertebral artery: No stenosis. No dissection or occlusion. Thyroid: There is a 20 x 29 mm sized nodule in the isthmus of the thyroid. Further evaluation with non urgent thyroid ultrasound suggested if not already done. Parotid and submandibular glands: There is what appears to be large lipoma in the right side of the neck probably originating in the right submandibular gland. Soft tissues: Normal. No significant soft tissue swelling. Bones/joints: No acute fracture. CT/CT angio headneck* [id number] IMPRESSION: 1. Occlusion or thrombosis of the right internal carotid artery of uncertain age. 2. Distal left vertebral artery stenosis. 3. Mild stenosis left posterior cerebral artery. 4. No acute intracranial vascular occlusion. IMPRESSION: Total occlusion of the right internal carotid artery of uncertain age. COMMENTS: Consistent with the [place] [employer]'s Incidental Findings Committee white paper (J Am Aislinn Radiol 2015): In patients aged 35 years and older with an incidental thyroid nodule equal to or greater than 1.[address], MRI or extrathyroidal US, further evaluation with dedicated thyroid US is recommended for patients with normal life expectancy and without comorbidities. For smaller nodules without suspicious features, no further evaluation or follow up is recommended. REFERENCES: NASCET CRITERIA. The degree of internal carotid artery stenosis is based on NASCET criteria. Normal is no stenosis. Mild is less than 50% stenosis. Moderate is 50-69% stenosis. Severe is 70% to 99% stenosis. Total occlusion is no detectable patent lumen.
[2021-12-22] MEDS: iohexol 350 mg/mL 100 mL Btl IV ×2 (18:22)
[2021-12-22 20:11] LABS: Adenovirus Not Detected (NOT DETECT); Chlamydia Pneumoniae Not Detected (NOT DETECT); Coronavirus 229E,HKU1,NL63,OC4 Not Detected (NOT DETECT); Human Metapneumovirus Not Detected (NOT DETECT); Human Rhinovirus/Enterovirus Not Detected (NOT DETECT); Influenza A Not Detected (NOT DETECT); Influenza A H1 Not Detected (NOT DETECT); Influenza A H1-2009 Not Detected (NOT DETECT); Influenza A H3 Not Detected (NOT DETECT); Influenza B Not Detected (NOT DETECT); Mycoplasma Pneumoniae Not Detected (NOT DETECT); Parainfluenza Virus Type 1 Not Detected (NOT DETECT); Parainfluenza Virus Type 2 Not Detected (NOT DETECT); Parainfluenza Virus Type 3 Not Detected (NOT DETECT); Parainfluenza Virus Type 4 Not Detected (NOT DETECT); Respiratory Syncytial Virus A Not Detected (NOT DETECT); Respiratory Syncytial Virus B Not Detected (NOT DETECT); SARS-COV-2 Detected (NOT DETECT)
--- NOTE | 2021-12-22 20:23 | ECG_ITS ---
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 Measurements Intervals [place] Rate: 101 P: 62 ND: 180 QRS: -45 QRSD: 107 T: 45 QT: 366 QTc: 474 Interpretive Statements SINUS TACHYCARDIA LEFT ANTERIOR FASCICULAR BLOCK [QRS AXIS <= -45, QR IN I, RS IN II] MODERATE VOLTAGE CRITERIA FOR LVH, CONSIDER NORMAL VARIANT [MEETS CRITERIA IN ONE OF: R(aVL), S(V1), R(V5), R(V5/V6)+S(V1)] No previous ECG available for comparison Electronically Signed On 12-23-2021 17:13:37 OVEN BAKER by Nanette Pereira M.D. [id number]
[2021-12-22] MEDS: sodium chloride 0.9% 1,000 ML 999 ML IV (20:52)
[2021-12-22] MEDS: FUROsemide 10 mg/mL SDV 4mL 40 MG IVP (21:10)
[2021-12-22] MEDS: dexamethasone 10 mg/mL INJ 6 MG IVP (21:10)
[2021-12-22 21:11] LABS: Troponin 5 6HR 68.98 ng/L (0-15)
[2021-12-22 21:14] LABS: Troponin 5 6HR Delta 11.98 ng/L (0-12)
[2021-12-22 21:15] VITALS: BP 156/87; PULSE 100; RESP 18; O2SAT 96
[2021-12-22] MEDS: remdesivir 200 MG in sodium chloride 0.9% (100 ml) 60 ML 100 MG IV (21:52)
[2021-12-22 22:00] VITALS: BP 167/68; PULSE 103; PULSE 94; RESP 19; TEMP 36.5; O2SAT 94
[2021-12-23] VITALS (12 sets, daily range): BP systolic 106–144; BP diastolic 63–81; PULSE 74–106; RESP 16–25; TEMP 36.5–37.2; O2SAT 89–98
--- NOTE | 2021-12-23 00:09 | PC.NURSE ---
Patient came from ER. ER nurse stated that he had given the lasix and also had the remdesivir running at the time of bringing patient to the floor. Did not give the doses given in the ed. Nurse from ED stated he would adminster them on the jan but at this time they were not so I charted as not given.
[2021-12-23] MEDS: acetaminophen 325 mg Tablet 650 MG PO (00:20)
[2021-12-23] MEDS: dexamethasone 10 mg/mL INJ 6 MG IVP ×2 (00:21→22:24)
[2021-12-23] MEDS: enoxaparin 30 mg/0.3 mL Syringe SUBCUT ×3 (00:21→22:24)
[2021-12-23] MEDS: metoprolol tartrate 50 mg Tablet PO ×3 (00:23→18:11)
[2021-12-23 00:30] LABS: Glucose Point of Care 380 mg/dL (70-110)
[2021-12-23] MEDS: insulin glargine 100 units/1 mL 18 UNIT SUBCUT ×3 (00:32→18:12)
[2021-12-23] MEDS: insulin lispro 100 unit/1 mL SUBCUT ×4 (00:33→18:12)
--- NOTE | 2021-12-23 01:55 | PC.NURSE ---
Patient yelling. Had pulled off his oxygen and ripped out his iv. Stated he had pain. Confused. Given tylenol and sleeping on reassess. Will continue to monitor.
--- NOTE | 2021-12-23 02:52 | PC.NURSE ---
Patient unable to give immunization information. Confused
[2021-12-23 04:34] LABS: ABG PCO2 39.9 mmHg (35-45); ABG PH Result 7.36 (7.35-7.45); Arterial Blood Gas Hematocrit 44.2 % (42-52); Base Excess ABG -2.6 mmol/L (-2.0-2.0); Blood Gas Sample Site Radial, left; Blood Gas Sample Type Arterial; HCO3 ABG 22.6 mmol/L (22-26); Oxygen Device NC; PO2 ABG 88.2 mmHg (80.0-100.0)
--- NOTE | 2021-12-23 05:06 | PC.NURSE ---
Shift Note Frequent safety and comfort rounds continue. Orders and/or nursing care completed as indicated. Patient monitored for response to intervention and treatment(s). Education provided includes oxygen safety and telemetry. Patient and/or cordage sales representative verbalized understading. Will continue to monitor.
--- NOTE | 2021-12-23 05:08 | PC.NURSE ---
Patient refuses to take clothing off. Explained that we would like him in a gown, however patient refuses.
[2021-12-23] MEDS: FUROsemide 40 mg Tablet PO (05:31)
[2021-12-23 05:42] LABS: Basophils % 0.2 %; Hematocrit 43.2 % (42.0-52.0); Hemoglobin 14.2 g/dL (11.7-16.6); Lymphocytes # 0.9 10^3/uL (0.8-4.8); Lymphocytes % 10.1 %; Mean Corpuscular HGB Conc 32.9 g/dL (30.0-36.0); Mean Corpuscular Hemoglobin 30.1 pg (28.0-34.0); Mean Corpuscular Volume 91.5 fl (80-94); Mean Platelet Volume 11.3 fL (7.4-10.4); Monocytes # 0.4 10^3/uL (0.2-0.9); Monocytes % 4.6 %; Neutrophils # 7.16 10^3/uL (1.8-7.7); Nucleated Red Blood Cells % 0 %; Platelet Count 268 10^3/cmm (130-400); Red Blood Count 4.72 10^6/uL (4.1-5.3); Red Cell Distribution Width 13.4 % (12.1-15.1); White Blood Count 8.5 10^3/uL (4.0-10.0)
[2021-12-23 05:59] LABS: Alanine Aminotransferase 25 U/L (0-41); Carbon Dioxide 22 mmol/L (22-29); Chloride 107 mmol/L (98-107); Total Bilirubin 0.6 mg/dL (0.15-1.2)
[2021-12-23 06:14] LABS: Aspartate Amino Transferase 60 U/L (0-40); Blood Urea Nitrogen 27 mg/dL (8-23); Calcium 9.2 mg/dL (8.5-10.5); Glucose 342 mg/dL (65-115); Osmolality Calculated 303 mOsm/kg (285-295); Total Protein 6.2 g/dL (6.6-8.7)
[2021-12-23 06:15] LABS: Alkaline Phosphatase 73 IU/L (40-130); Anion Gap 11.5 (5-19); Globulin 3.2 g/dL (1.3-4.6); Potassium 3.5 mmol/L (3.5-5.1); Sodium 137 mmol/L (136-145)
[2021-12-23 06:18] LABS: C Reactive Protein 121.6 mg/L (0.0-4.9); Magnesium 2.5 mg/dL (1.7-2.3)
[2021-12-23 06:54] LABS: Glucose Point of Care 306 mg/dL (70-110)
[2021-12-23] MEDS: ipratropium-albuterol 3 mL Neb INHALATION (08:31)
[2021-12-23] MEDS: budesonide 0.5 mg/2 mL Neb INHALATION ×2 (08:31→20:45)
[2021-12-23] MEDS: pantoprazole DR 40 mg Tablet PO (08:59)
[2021-12-23] MEDS: magnesium oxide 400 mg tablet PO (08:59)
[2021-12-23] MEDS: potassium chloride ER 20 mEq Tablet PO (09:00)
[2021-12-23] MEDS: sennosides-docusate Tablet 1 TAB PO (09:00)
[2021-12-23] MEDS: clopidogrel 75 mg Tablet PO (09:00)
[2021-12-23] MEDS: aspirin 325 mg Tablet PO (09:00)
[2021-12-23] MEDS: ascorbic acid 500 mg Tablet PO (09:02)
[2021-12-23] MEDS: benzonatate 100 mg Capsule 200 MG PO (09:08)
[2021-12-23] MEDS: MED 50 MG PO (09:11)
[2021-12-23] MEDS: insulin lispro 100 unit/1 mL 8 UNIT SUBCUT ×2 (09:15→16:35)
[2021-12-23 11:16] LABS: Glucose Point of Care 283 mg/dL (70-110)
--- NOTE | 2021-12-23 11:32 | PM.PN ---
Subjective Subjective: Interval history: Patient this morning seems to be awake alert oriented to time place and person, very dehydrated and anxious Added Xanax for as needed usage Currently doing well on 4 L nasal cannula, PO2 88 Vitals/I&O/Wt Last Vital Signs Temp 97.7 F 12/23/21 08:00 Pulse 91 12/23/21 08:34 Resp 20 H 12/23/21 08:34 BP 124/74 12/23/21 09:11 Pulse Ox 93 12/23/21 08:34 12/22/21 12/23/21 12/23/21 22:59 06:59 14:59 Intake Total 1060 / 1060 Balance 1060 / 1060 Weight last 48 hrs Weight 83.915 kg Weight 83.915 kg Physical Exam Narrative: EXAM NARRATIVE: Awake and alert Oriented x3 GCS 15 nonfocal neuro exam Dehydrated Bilateral breath sound without adventitious rhonchi or crackles Encephalopathy improved Abdomen soft No active neurological signs or symptoms EOMI, PERRLA Nonlabored breathing Anxious appearing Data : 12/23/21 05:25 12/23/21 05:25 A&P Assessment and plan (1) Delirium: Status: Acute (2) COVID: Status: Acute (3) Acute kidney injury superimposed on chronic kidney disease: Status: Acute (4) Carotid artery disease: Status: Acute Plan COVID-19 alert encephalopathy Improved since yesterday No signs of stroke Chronic occlusion of carotid disease noted Continue aspirin and atorvastatin Continue Decadron and baricitinib along remdesivir Is also on empirical coverage with Rocephin Clinically improving Acute on chronic kidney disease BNP is high however clinically looks dry Today I would like to give him fluids instead of Lasix Hold Lasix Hold losartan DVT prophylaxis Lovenox 30 every 12 hours Delirium related to COVID-19: Improving, Xanax as needed uses 3 times a day Full code Cardiac diet Hyperglycemia, currently on premeal and Lantus along sliding scale Attestations Medical Necessity Statement*: Continue medical management Time Spent in Patient Care: 15 minutes Coding Level of Care Code Acute Mechanical System Technician for Brandon Jaime Diagnoses Delirium R41.0 COVID U07.1 Acute kidney injury superimposed on chronic kidney disease N17.9; N18.9 Carotid artery disease I77.9
[2021-12-23] MEDS: cefTRIAXone 1,000 MG in sodium chloride 0.9% (plus) 50 ML 100 MG IV (11:39)
[2021-12-23] MEDS: ALPRAZolam 0.5 mg Tablet PO (11:40)
[2021-12-23] MEDS: sodium chloride 0.9% 1,000 ML 75 ML IV (12:31)
[2021-12-23 17:57] LABS: Glucose Point of Care 211 mg/dL (70-110)
[2021-12-23 21:25] LABS: Glucose Point of Care 111 mg/dL (70-110)
[2021-12-23] MEDS: remdesivir 100 MG in sodium chloride 0.9% (100 ml) 100 ML IV (22:25)
--- NOTE | 2021-12-23 23:12 | USCV_ITS ---
Garcia Lundy Age: 76 Gender: M : 1945 Exam Date: 12/23/2021 06:52 Ordering Phys: Simeon Hook MD Technologist: HE Exam Location: [facility] [place] Indication: SWELLING HISTORY: Lower extremity swelling. PROCEDURES: Venous duplex imaging was performed in bilateral lower extremities. The following venous structures were evaluated: common femoral vein, profunda vein, proximal portion of the greater saphenous vein, superficial femoral vein, and the popliteal vein. In addition, the posterior tibial and peroneal trunk were evaluated. Serial compression, augmentation maneuvers, and spectral Doppler flow evaluation were performed. FINDINGS: Normal 2-D Doppler and augmentation and compressibility throughout the lower extremity venous structures. Additional imaging through the proximal calf veins also reveals no thrombus. Limited evaluation of the greater saphenous vein is patent with no thrombus.. CONCLUSIONS No DVT bilateral lower extremities. Dr. Dhara Henry DO (Electronically Signed) Final Date: 23 December 2021 07:53 S
[2021-12-24] VITALS (10 sets, daily range): BP systolic 113–150; BP diastolic 70–88; PULSE 71–97; RESP 16–18; TEMP 36.4–37.1; O2SAT 86–95
[2021-12-24 06:23] LABS: Anion Gap 16.2 (5-19); Blood Urea Nitrogen 45 mg/dL (8-23); Calcium 9.7 mg/dL (8.5-10.5); Carbon Dioxide 20 mmol/L (22-29); Chloride 109 mmol/L (98-107); Glucose 184 mg/dL (65-115); Osmolality Calculated 308 mOsm/kg (285-295); Potassium 4.2 mmol/L (3.5-5.1); Sodium 141 mmol/L (136-145)
[2021-12-24 06:43] LABS: Glucose Point of Care 204 mg/dL (70-110)
--- NOTE | 2021-12-24 07:13 | USCV_ITS ---
Kamron Wilnerjackie Age: 76 Gender: M : 1945 Exam Date: 12/24/2021 07:47 Ordering Phys: Simeon Hook MD Technologist: RANI Exam Location: [facility] – [place] Indication: Assess LV function BP: 113 / 70 HR: 86 Rhythm: Sinus Technical Quality: Adequate MEASUREMENTS (Male / Female) Normal Values 2D ECHO LV Diastolic Diameter PLAX 4.0 cm 4.2 - 5.9 / 3.9 - 5.3 cm LV Systolic Diameter PLAX 3.1 cm IVS Diastolic Thickness 1.3 cm 0.6 - 1.0 / 0.6 - 0.9 cm IVS Systolic Thickness 1.6 cm LVPW Diastolic Thickness 1.5 cm 0.6 - 1.0 / 0.6 - 0.9 cm LVPW Systolic Thickness 1.7 cm LVOT Diameter 2.0 cm LV Ejection Fraction 2D Teich 46.9 % LV Ejection Fraction MOD 2C 41.5 % LV Ejection Fraction 2C AL 42.3 % LA Diameter 3.6 cm LA Width 4.3 cm LA Height 5.1 cm RA Width 2.8 cm RA Height 4.4 cm Aorta at Sinotubular Diameter 2.3 cm M-MODE Aortic Annulus Diameter 3.4 cm LA Ao Ratio MM 1.2 MV E Point Septal Separation 0.7 cm FINDINGS Left Ventricle Normal left ventricular cavity size. Mildly decreased left ventricular systolic function. Left ventricular ejection fraction is visually estimated at 40- 45%. There is possible hypokinesis of inferolateral wall on this technically difficult study. Right Ventricle Normal right ventricular size and systolic function. Right Atrium Normal right atrial size. Left Atrium Mildly increased left atrial size. Mitral Valve Mild mitral annular calcification. Moderately thickened mitral valve. Aortic Valve Mildly thickened trileaflet aortic valve. Tricuspid Valve Pulmonic Valve Pulmonic valve not well visualized. Pericardium No pericardial effusion. Aorta Aorta not well visualized. Normal-sized inferior vena cava. CONCLUSIONS 1. This is a technically difficult study. 2. Normal left ventricular cavity size. Mildly decreased left ventricular systolic function. Left ventricular ejection fraction is estimated at 40-45%. There is possible hypokinesis of inferolateral wall . 3. Repeat study with echo contrast is recommended. Nanette Pereira MD (Electronically Signed) Final Date: 24 December 2021 12:36 S
[2021-12-24] MEDS: budesonide 0.5 mg/2 mL Neb INHALATION ×2 (07:59→20:29)
[2021-12-24] MEDS: aspirin 325 mg Tablet PO (08:57)
[2021-12-24] MEDS: magnesium oxide 400 mg tablet PO (08:57)
[2021-12-24] MEDS: potassium chloride ER 20 mEq Tablet PO (08:57)
[2021-12-24] MEDS: pantoprazole DR 40 mg Tablet PO (08:57)
[2021-12-24] MEDS: sennosides-docusate Tablet 1 TAB PO (08:57)
[2021-12-24] MEDS: metoprolol tartrate 50 mg Tablet PO ×2 (08:57→16:43)
[2021-12-24] MEDS: clopidogrel 75 mg Tablet PO (08:58)
[2021-12-24] MEDS: FUROsemide 10 mg/mL SDV 4mL 40 MG IVP (08:58)
[2021-12-24] MEDS: ascorbic acid 500 mg Tablet PO (08:58)
[2021-12-24] MEDS: cefTRIAXone 1,000 MG in sodium chloride 0.9% (plus) 50 ML 100 MG IV (09:03)
[2021-12-24] MEDS: insulin lispro 100 unit/1 mL SUBCUT ×2 (09:05→12:46)
[2021-12-24] MEDS: insulin glargine 100 units/1 mL 18 UNIT SUBCUT ×2 (09:06→18:37)
[2021-12-24] MEDS: insulin lispro 100 unit/1 mL 8 UNIT SUBCUT (09:06)
--- NOTE | 2021-12-24 10:36 | PM.PN ---
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 notified me during MDR that daughter requested retirement placement Vitals/I&O/Wt Last Vital Signs Temp 98.1 F 12/24/21 07:46 Pulse 80 12/24/21 08:28 Resp 16 12/24/21 08:28 BP 150/88 12/24/21 07:46 Pulse Ox 94 12/24/21 08:28 12/23/21 12/24/21 12/24/21 22:59 06:59 14:59 Intake Total 290 / 530 1100 / 1630 240 / 240 Output Total 650 / 650 Balance 290 / 530 450 / 980 240 / 240 Weight last 48 hrs Weight 83.915 kg Weight 83.915 kg Physical Exam Narrative: EXAM NARRATIVE: Patient is laying flat No active therapy or PND Currently on 4 L nasal cannula Dry cracked lips No active clinical signs of fluid overload Abdomen soft Bilateral breath sound without adventitious rhonchi or crackles EOMI, PERRLA Nonfocal neuro exam Oriented to himself Data : 12/23/21 05:25 12/24/21 05:28 A&P Assessment and plan (1) Carotid artery disease: Status: Acute (2) Acute kidney injury superimposed on chronic kidney disease: Status: Acute (3) Delirium: Status: Acute (4) COVID: Status: Acute (5) Coronary artery disease due to type 2 diabetes mellitus: Status: Acute (6) Type 2 diabetes mellitus with diabetic nephropathy: Status: Acute Plan COVID-19 related hypoxia and encephalopathy Currently on 4 L Continue Decadron remdesivir Encephalopathy is waxing and waning No active signs of stroke Chronic occlusion of carotid no significant change on CT head and neck No signs of PE Clinically looks dehydrated however BNP is high and requesting echo this morning, creatinine worsened with IV fluids which were given yesterday, he is in positive fluid balance, I would do a trial of diuretics today CASSIDY related to cardiorenal syndrome Deconditioning related to COVID-19 retirement placement might be needed, PT evaluation Cardiac diet Full code DVT prophylaxis on board Hyperglycemia related to type 2 diabetes I am reluctant to add or escalate insulin because of worsening creatinine at this point will like to watch him on current regimen Attestations Medical Necessity Statement*: Continue medical management Time Spent in Patient Care: 15mins Coding Level of Care Code Acute Supervisor Sound Technician for Chg Fwd Diagnoses Carotid artery disease I77.9 Acute kidney injury superimposed on chronic kidney disease N17.9; N18.9 Delirium R41.0 COVID U07.1 Coronary artery disease due to type 2 diabetes mellitus E11.59; I25.10 Type 2 diabetes mellitus with diabetic nephropathy E11.21
[2021-12-24 11:25] LABS: Glucose Point of Care 180 mg/dL (70-110)
[2021-12-24] MEDS: enoxaparin 30 mg/0.3 mL Syringe SUBCUT ×2 (12:46→22:36)
[2021-12-24] MEDS: ALPRAZolam 0.5 mg Tablet PO (13:22)
[2021-12-24 18:17] LABS: Glucose Point of Care 104 mg/dL (70-110)
[2021-12-24] MEDS: ipratropium-albuterol 3 mL Neb INHALATION (20:29)
[2021-12-24 21:33] LABS: Glucose Point of Care 117 mg/dL (70-110)
[2021-12-24] MEDS: remdesivir 100 MG in sodium chloride 0.9% (100 ml) 100 ML IV (22:34)
[2021-12-24] MEDS: dexamethasone 10 mg/mL INJ 6 MG IVP (22:56)
[2021-12-25] VITALS (8 sets, daily range): BP systolic 132–161; BP diastolic 70–78; PULSE 61–92; RESP 15–22; TEMP 36.3–36.7; O2SAT 90–95
[2021-12-25 06:19] LABS: Glucose Point of Care 198 mg/dL (70-110)
[2021-12-25 07:07] LABS: Anion Gap 15.1 (5-19); Blood Urea Nitrogen 47 mg/dL (8-23); Calcium 9.4 mg/dL (8.5-10.5); Carbon Dioxide 22 mmol/L (22-29); Chloride 109 mmol/L (98-107); Creatinine Clr Calc Pharmacy 44.5144; Glucose 201 mg/dL (65-115); Osmolality Calculated 312 mOsm/kg (285-295); Potassium 4.1 mmol/L (3.5-5.1); Sodium 142 mmol/L (136-145)
[2021-12-25] MEDS: magnesium oxide 400 mg tablet PO (09:16)
[2021-12-25] MEDS: clopidogrel 75 mg Tablet PO (09:17)
[2021-12-25] MEDS: pantoprazole DR 40 mg Tablet PO (09:17)
[2021-12-25] MEDS: sennosides-docusate Tablet 1 TAB PO (09:17)
[2021-12-25] MEDS: metoprolol tartrate 50 mg Tablet PO ×2 (09:17→17:39)
[2021-12-25] MEDS: potassium chloride ER 20 mEq Tablet PO (09:17)
[2021-12-25] MEDS: aspirin 325 mg Tablet PO (09:17)
[2021-12-25] MEDS: ascorbic acid 500 mg Tablet PO (09:34)
[2021-12-25] MEDS: cefTRIAXone 1,000 MG in sodium chloride 0.9% (plus) 50 ML 100 MG IV (09:35)
[2021-12-25] MEDS: insulin glargine 100 units/1 mL 18 UNIT SUBCUT ×2 (09:43→17:39)
--- NOTE | 2021-12-25 11:35 | PM.PN ---
Subjective Subjective: Interval history: Diuretics were given yesterday, creatinine improved to 1.6 He was able to get out of bed and sit in a chair, was able to eat breakfast Awake and alert Fatigue lethargic Still having difficulty ambulating without walker Vitals/I&O/Wt Last Vital Signs Temp 97.9 F 12/25/21 07:57 Pulse 86 12/25/21 07:57 Resp 18 12/25/21 07:57 BP 161/76 12/25/21 07:57 Pulse Ox 94 12/25/21 07:57 12/24/21 12/25/21 12/25/21 22:59 06:59 14:59 Intake Total 200 / 680 450 / 1130 450 / 450 Output Total 150 / 150 450 / 600 Balance 50 / 530 0 / 530 450 / 450 Physical Exam Narrative: EXAM NARRATIVE: Patient was able to eat breakfast in a chair Get out of bed to sit in a chair Able to use walker Currently on 4 L nasal cannula No active shortness of breath Bilateral breath sounds no active rhonchi or crackles Abdomen soft No signs of edema Awake and alert No focal neuro deficit Data : 12/23/21 05:25 12/25/21 06:15 A&P Assessment and plan (1) Carotid artery disease: Status: Acute (2) Acute kidney injury superimposed on chronic kidney disease: Status: Acute (3) Delirium: Status: Acute (4) COVID: Status: Acute (5) Type 2 diabetes mellitus with diabetic nephropathy: Status: Acute (6) Coronary artery disease due to type 2 diabetes mellitus: Status: Acute (7) Acute exacerbation of CHF (congestive heart failure): Status: Acute Plan COVID-19 related hypoxia Currently on 4 L nasal cannula Stable no acute worsening If we are not able to find a care home for him he will be able to go home with home health services Continue baricitinib Decadron and remdesivir Echo shows 45% EF however repeat study with contrast recommended, no active chest pain, troponin trended down There is reduction in EF With this current COVID-19 status there is no urgency for coronary angiogram, will give him cardiology follow-up at the time of discharge Continue diuretics CASSIDY related to cardiorenal syndrome, improving with diuretics DNR/DNI Type 2 diabetes on aggressive insulin regimen Attestations Medical Necessity Statement*: Continue medical management Time Spent in Patient Care: 15 Coding Level of Care Code Acute Wind Turbine Installer for Chg Fwd Diagnoses Carotid artery disease I77.9 Acute kidney injury superimposed on chronic kidney disease N17.9; N18.9 Delirium R41.0 COVID U07.1 Type 2 diabetes mellitus with diabetic nephropathy E11.21 Coronary artery disease due to type 2 diabetes mellitus E11.59; I25.10 Acute exacerbation of CHF (congestive heart failure) I50.9
[2021-12-25] MEDS: bumetanide 0.25 mg/mL SDV 10 mL 2 MG IVP (11:48)
[2021-12-25] MEDS: enoxaparin 30 mg/0.3 mL Syringe SUBCUT ×2 (11:48→22:30)
[2021-12-25] MEDS: insulin lispro 100 unit/1 mL SUBCUT ×2 (11:50→17:39)
[2021-12-25 12:00] LABS: Glucose Point of Care 447 mg/dL (70-110)
[2021-12-25 17:40] LABS: Glucose Point of Care 228 mg/dL (70-110)
[2021-12-25 21:06] LABS: Glucose Point of Care 131 mg/dL (70-110)
[2021-12-25] MEDS: dexamethasone 10 mg/mL INJ 6 MG IVP (22:29)
[2021-12-25] MEDS: remdesivir 100 MG in sodium chloride 0.9% (100 ml) 100 ML IV (22:30)
[2021-12-26] VITALS (12 sets, daily range): BP systolic 127–147; BP diastolic 68–79; PULSE 59–96; RESP 16–20; TEMP 36.1–37; O2SAT 87–97
[2021-12-26] MEDS: benzonatate 100 mg Capsule 200 MG PO (00:21)
[2021-12-26 06:20] LABS: Glucose Point of Care 176 mg/dL (70-110)
[2021-12-26 07:16] LABS: Anion Gap 15.4 (5-19); Blood Urea Nitrogen 46 mg/dL (8-23); Calcium 10.3 mg/dL (8.5-10.5); Carbon Dioxide 22 mmol/L (22-29); Chloride 109 mmol/L (98-107); Glucose 126 mg/dL (65-115); Osmolality Calculated 307 mOsm/kg (285-295); Potassium 4.4 mmol/L (3.5-5.1); Sodium 142 mmol/L (136-145)
[2021-12-26 07:17] LABS: Troponin T (5th) Once 43 ng/L (0-15)
[2021-12-26] MEDS: ascorbic acid 500 mg Tablet PO (09:10)
[2021-12-26] MEDS: aspirin 325 mg Tablet PO (09:10)
[2021-12-26] MEDS: insulin glargine 100 units/1 mL 18 UNIT SUBCUT ×2 (09:10→18:21)
[2021-12-26] MEDS: magnesium oxide 400 mg tablet PO (09:10)
[2021-12-26] MEDS: pantoprazole DR 40 mg Tablet PO (09:10)
[2021-12-26] MEDS: sennosides-docusate Tablet 1 TAB PO (09:10)
[2021-12-26] MEDS: potassium chloride ER 20 mEq Tablet PO (09:11)
[2021-12-26] MEDS: clopidogrel 75 mg Tablet PO (09:11)
[2021-12-26] MEDS: metoprolol tartrate 50 mg Tablet PO ×2 (09:11→18:22)
[2021-12-26] MEDS: insulin lispro 100 unit/1 mL SUBCUT ×2 (09:11→12:20)
[2021-12-26] MEDS: cefTRIAXone 1,000 MG in sodium chloride 0.9% (plus) 50 ML 100 MG IV (09:12)
[2021-12-26] MEDS: insulin lispro 100 unit/1 mL 8 UNIT SUBCUT ×3 (09:12→18:21)
[2021-12-26] MEDS: budesonide 0.5 mg/2 mL Neb INHALATION ×2 (09:14→20:19)
[2021-12-26] MEDS: ipratropium-albuterol 3 mL Neb INHALATION ×2 (09:15→20:19)
--- NOTE | 2021-12-26 10:59 | P.PN_ITS ---
Subjective Subjective: Interval history: Patient is feeling much better, he is able to ambulate on his own, I spoke with his daughter who is waiting to bring him home with home health services on Wednesday currently he is on 4 L, endorsing feeling better Vitals/I&O/Wt Last Vital Signs Temp 98.6 F 12/26/21 08:00 Pulse 81 12/26/21 09:15 Resp 18 12/26/21 09:15 BP 147/73 12/26/21 08:00 Pulse Ox 96 12/26/21 09:15 12/25/21 12/26/21 12/26/21 22:59 06:59 14:59 Intake Total 240 / 690 270 / 960 50 / 50 Output Total 850 / 1300 Balance -610 / -610 270 / -340 50 / 50 Physical Exam Narrative: EXAM NARRATIVE: Patient is on 4L nasal cannula Saturating well S1, S2 Euvolemic Abdomen soft Nonfocal neuro exam Short attention span otherwise nonfocal neuro exam No joint swelling Data : 12/23/21 05:25 12/26/21 06:44 A&P Assessment and plan (1) Carotid artery disease: Status: Acute (2) Acute kidney injury superimposed on chronic kidney disease: Status: Acute (3) Delirium: Status: Acute (4) COVID: Status: Acute (5) CHF exacerbation: Status: Acute Plan Acute CHF exacerbation, reduced action fraction Echo shows mild reduction in EF as compared to previous echo, he will need outpatient cardiology follow-up and possibly another angiogram once he is out of quarantine No active chest pain or shortness of breath No significant ischemic or infarctive changes on the EKG CASSIDY related to cardiorenal syndrome improved with diuretics Creatinine worsened with IV fluids which were given at the time of admission Seems to be around baseline now Encephalopathy related to COVID-19 Improving He is awake and alert and wants to go home Currently on 4 L nasal cannula Continue COVID-19 treatment cocktail Plan to discharge him tomorrow with home health services after home O2 eval Cardiac diet DVT prophylaxis on board Hyperglycemia currently euglycemic with aggressive insulin regimen that he takes at home Attestations Medical Necessity Statement*: Discharge tomorrow Time Spent in Patient Care: 15mins Coding Level of Care Code Acute [employer] for [facility] Fwd Diagnoses Carotid artery disease I77.9 Acute kidney injury superimposed on chronic kidney disease N17.9; N18.9 Delirium R41.0 COVID U07.1 CHF exacerbation I50.9
[2021-12-26 12:20] LABS: Glucose Point of Care 172 mg/dL (70-110)
[2021-12-26] MEDS: bumetanide 0.25 mg/mL SDV 4 mL 1 MG IVP (12:20)
[2021-12-26] MEDS: enoxaparin 30 mg/0.3 mL Syringe SUBCUT ×2 (12:20→22:47)
[2021-12-26] MEDS: methylphenidate 10 mg Tablet 5 MG PO (12:20)
[2021-12-26 18:02] LABS: Glucose Point of Care 115 mg/dL (70-110)
[2021-12-26 21:02] LABS: Glucose Point of Care 90 mg/dL (70-110)
[2021-12-26] MEDS: dexamethasone 10 mg/mL INJ 6 MG IVP (22:47)
[2021-12-27] VITALS (7 sets, daily range): BP systolic 119–132; BP diastolic 62–82; PULSE 7–84; RESP 16–18; TEMP 36–36.8; O2SAT 93–100
[2021-12-27 06:28] LABS: Anion Gap 16.1 (5-19); Blood Urea Nitrogen 46 mg/dL (8-23); Calcium 10.5 mg/dL (8.5-10.5); Carbon Dioxide 23 mmol/L (22-29); Chloride 109 mmol/L (98-107); Glucose 63 mg/dL (65-115); Osmolality Calculated 308 mOsm/kg (285-295); Potassium 4.1 mmol/L (3.5-5.1); Sodium 144 mmol/L (136-145)
[2021-12-27 06:31] LABS: Glucose Point of Care 105 mg/dL (70-110)
[2021-12-27] MEDS: budesonide 0.5 mg/2 mL Neb INHALATION (07:38)
[2021-12-27] MEDS: magnesium oxide 400 mg tablet PO (09:35)
[2021-12-27] MEDS: potassium chloride ER 20 mEq Tablet PO (09:35)
[2021-12-27] MEDS: clopidogrel 75 mg Tablet PO (09:35)
[2021-12-27] MEDS: pantoprazole DR 40 mg Tablet PO (09:35)
[2021-12-27] MEDS: ascorbic acid 500 mg Tablet PO (09:35)
[2021-12-27] MEDS: metoprolol tartrate 50 mg Tablet PO (09:35)
[2021-12-27] MEDS: aspirin 325 mg Tablet PO (09:35)
[2021-12-27] MEDS: insulin glargine 100 units/1 mL 18 UNIT SUBCUT (09:35)
--- NOTE | 2021-12-27 10:27 | P.DS_ITS ---
Discharge Providers Date of Admission: 12/22/21 23:10 Date of Discharge: December 27, 2021 Attending Provider at Admission: Lalito Hook MD Attending Provider at Discharge: Lalito Hook MD Primary Care Provider: Marcelo De Santiago DO Diagnoses at Discharge Discharge Diagnosis (1) Carotid artery disease: Status: Acute (2) Acute kidney injury superimposed on chronic kidney disease: Status: Acute (3) Delirium: Status: Acute (4) COVID: Status: Acute (5) CHF exacerbation: Status: Acute Reason for Visit Reason for Visit: COUGH, SOB, CONFUSED Hospital Course Hospital Course This is my admitting note: Garcia Lundy is a 76 year old male presented today with chief complaint of worsening shortness of breath and confusion.? I spoke with his daughter as patient is not able to provide any history.? He is only oriented to himself.? Daughter is able to tell me that everyone in the household has been suffering with COVID-19 infection.? His symptoms started on 12/17 with shortness of breath chest congestion and confusion.? His symptoms gradually worsened and today he was sent for further evaluation in the ER.? In the ER he was diagnosed with hypoxia 85% on room air, he was put on 5 L nasal cannula, he was started on COVID-19 treatment, PCR has been sent. 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 CTA head and neck revealed chronic changes, he was kept on aspirin, Plavix and atorvastatin, his mentation improved with better oxygenation, for his hypoxia he was requiring 3 to 4 L at rest and 4 L on ambulation. I also gave baricitinib during his hospitalization. His creatinine worsened with IV fluids, creatinine started trending down with the use of diuretics, EF 40 to 45% however patient was asymptomatic no chest pain at all, EKG without ischemic or infarctive changes, would recommend outpatient cardiology follow-up for repeat echo and possible angiogram if needed. For his hyperglycemia he was kept on his higher aggressive insulin regimen. Patient did well with physical therapy he was able to walk 75 feet without any assistance,. He will be discharged home with home health services on 4 L of nasal cannula. MRSA PCR negative, CTA chest rule out PE, no signs of DVT. Encephalopathy has improved. Daughter willing to take him home with home health services which will be set up around Wednesday, the services were not able to be arranged because of bad weather over the weekend. Physical Exam Narrative: EXAM NARRATIVE: Patient is awake and alert Short attention span otherwise oriented to time place and person Nonfocal exam Euvolemic Abdomen soft EOMI, PERRLA No audible stridor or wheezing He was able to go to the bathroom on his own Independent for ambulation Did not become short of breath when he returned from the bathroom Discharge Data Studies Completed and Pending Completed Studies During Hospitalization Category Date Time Status CT head wo con* [id number] Stat Cat Scan 12/22/21 17:21 Completed CTA PE [CT angio chest PE protcl [id number]] Stat Cat Scan 12/22/21 17:11 Completed CTA head neck [CT angio headneck* [id number]] Stat Cat Scan 12/22/21 17:21 Completed XR chest 1V portable [id number] Urgent Exams 12/22/21 14:23 [place] [id number] Routine Ultrasound 12/23/21 23:12 Completed CV. echo limited [id number] Routine Ultrasound 12/24/21 07:13 Completed Pending at discharge Category Date Time Status MRSA by PCR Stat Lab 12/22/21 17:07 Uncollected Radiology Impressions Chest X-Ray 12/22/21 14:23 IMPRESSION: Bilateral lung opacities as above. Findings are compatible with subacute pneumonitis. The location and appearance of the abnormality in the right lung is very suggestive of Covid pneumonitis. Findings are not suggestive of congestive heart failure. Chest CTA 12/22/21 17:11 IMPRESSION: 1. There is no pulmonary embolus. 2. Multifocal ground-glass and airspace opacities are noted in the lungs concerning for pneumonic infiltrates including COVID-19 pneumonia. Cholelithiasis without cholecystitis is noted. There is a 3.2 mm calculus in the cystic duct or proximal common bile duct. Ultrasound may be helpful for further evaluation is clinically warranted. No duct dilatation is identified. 3. There is a 2.6 cm hypodense nodule of the thyroid isthmus unchanged compared to the prior exam. This has been evaluated with recent ultrasound. COMMENTS: Consistent with the [employer] [place]'s Incidental Findings Committee white paper (J Am Aislinn Radiol 2018): Any incidental renal lesion less than 1 cm or classified as too small to characterize, or any incidental cystic renal lesion characterized as simple-appearing, is likely benign. No follow-up imaging is recommended for these lesions per consensus recommendations based on imaging criteria. 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 No acute intracranial finding. Head/Neck CTA 12/22/21 17:21 IMPRESSION: 1. Occlusion or thrombosis of the right internal carotid artery of uncertain age. 2. Distal left vertebral artery stenosis. 3. Mild stenosis left posterior cerebral artery. 4. No acute intracranial vascular occlusion. IMPRESSION: Total occlusion of the right internal carotid artery of uncertain age. COMMENTS: Consistent with the [place] [employer]'s Incidental Findings Committee white paper (J Am Aislinn Radiol 2015): In patients aged 35 years and older with an incidental thyroid nodule equal to or greater than 1.[address], MRI or extrathyroidal US, further evaluation with dedicated thyroid US is recommended for patients with normal life expectancy and without comorbidities. For smaller nodules without suspicious features, no further evaluation or follow up is recommended. REFERENCES: NASCET CRITERIA. The degree of internal carotid artery stenosis is based on NASCET criteria. Normal is no stenosis. Mild is less than 50% stenosis. Moderate is 50-69% stenosis. Severe is 70% to 99% stenosis. Total occlusion is no detectable patent lumen. ADDENDUM: 12/22/21 191 Addendum: THIS REPORT CONTAINS FINDINGS THAT MAY BE CRITICAL TO PATIENT CARE. The findings were verbally communicated via telephone conference with LALITO HOOK at 6:59 PM [employer] REPRESENTATIVE on 12/22/2021. The findings were acknowledged and understood. Laboratory Results WBC 8.5 10^3/uL (4.0-10.0) 12/23/21 05:25 RBC 4.72 10^6/uL (4.1-5.3) 12/23/21 05:25 Hgb 14.2 g/dL (11.7-16.6) 12/23/21 05:25 Hct 43.2 % (42.0-52.0) 12/23/21 05:25 MCV 91.5 fl (80-94) 12/23/21 05:25 MCH 30.1 pg (28.0-34.0) 12/23/21 05:25 MCHC 32.9 g/dL (30.0-36.0) 12/23/21 05:25 RDW 13.4 % (12.1-15.1) 12/23/21 05:25 Plt Count 268 10^3/cmm (130-400) 12/23/21 05:25 MPV 11.3 fL (7.4-10.4) H 12/23/21 05:25 Neut % (Auto) 84.0 % 12/23/21 05:25 Lymph % (Auto) 10.1 % 12/23/21 05:25 [place] % (Auto) 4.6 % 12/23/21 05:25 Eos % (Auto) 0.0 % 12/23/21 05:25 Baso % (Auto) 0.2 % 12/23/21 05:25 Neut # (Auto) 7.16 10^3/uL (1.8-7.7) 12/23/21 05:25 Lymph # (Auto) 0.9 10^3/uL (0.8-4.8) 12/23/21 05:25 [place] # (Auto) 0.4 10^3/uL (0.2-0.9) 12/23/21 05:25 Eos # (Auto) 0.0 10^3/uL (0.0-0.8) 12/23/21 05:25 Baso # (Auto) 0.0 10^3/uL (0.0-0.1) 12/23/21 05:25 Nucleated RBC % (auto) 0 % 12/23/21 05:25 Nucleated RBCs # 0.0 /100WBC 12/23/21 05:25 Specimen Type Arterial 12/23/21 04:22 Sample Site Radial, left 12/23/21 04:22 ABG pH 7.36 (7.35-7.45) 12/23/21 04:22 ABG pCO2 39.9 mmHg (35-45) 12/23/21 04:22 ABG pO2 88.2 mmHg (80.0-100.0) 12/23/21 04:22 ABG HCO3 22.6 mmol/L (22-26) 12/23/21 04:22 ABG O2 Saturation 90.0 12/22/21 15:32 ABG Base Excess -2.6 mmol/L (-2.0-2.0) L 12/23/21 04:22 Get Test N/a 12/23/21 04:22 A-a O2 Gradient 23.8 mmHg (5-10) H 12/22/21 15:32 Hematocrit 44.2 % (42-52) 12/23/21 04:22 Hgb O2 Saturation 88.3 % (95-100) L 12/22/21 15:32 Carboxyhemoglobin 0.2 %THgb (0.4-20.1) L 12/22/21 15:32 Methemoglobin 1.6 % (0.4-1.5) H 12/22/21 15:32 Total Hemoglobin 14.4 g/dL (14-18) 12/22/21 15:32 Sodium 140.0 mmol/L (131-143) 12/22/21 15:32 Potassium 3.4 mmol/L (3.5-5.0) L 12/22/21 15:32 Glucose 323.0 mg/dL (70-115) H 12/22/21 15:32 Ionized Calcium 1.4 mmol/L (1.1-1.4) 12/22/21 15:32 O2 Delivery Device Nc 12/23/21 04:22 O2 Liters/Min 5.0 % 12/23/21 04:22 FiO2 40.0 % 12/22/21 15:32 Staff Anesthetist ID [email or web address] 12/23/21 04:22 Sodium 144 mmol/L (136-145) 12/27/21 04:27 Potassium 4.1 mmol/L (3.5-5.1) 12/27/21 04:27 Chloride 109 mmol/L (98-107) H 12/27/21 04:27 Carbon Dioxide 23 mmol/L (22-29) 12/27/21 04:27 Anion Gap 16.1 (5-19) 12/27/21 04:27 BUN 46 mg/dL (8-23) H 12/27/21 04:27 Creatinine 1.3 mg/dL (0.7-1.2) H 12/27/21 04:27 GFR Calculation Not Reportable 12/27/21 04:27 Glucose 63 mg/dL (65-115) L 12/27/21 04:27 POC Glucose 105 mg/dL (70-110) 12/27/21 06:25 Calculated Osmolality 308 mOsm/kg (285-295) H 12/27/21 04:27 Calcium 10.5 mg/dL (8.5-10.5) 12/27/21 04:27 Magnesium 2.5 mg/dL (1.7-2.3) H 12/23/21 05:25 Total Bilirubin 0.6 mg/dL (0.15-1.2) 12/23/21 05:25 AST 60 U/L (0-40) H 12/23/21 05:25 ALT 25 U/L (0-41) 12/23/21 05:25 Alkaline Phosphatase 73 IU/L (40-130) 12/23/21 05:25 Troponin T Gen 5 ng/L 43 ng/L (0-15) H 12/26/21 06:44 Troponin T Baseline 57 ng/L (0-15) H 12/22/21 14:25 Troponin T 120 Minute 71.56 ng/L (0-15) H 12/22/21 16:18 Delta Troponin T 14.56 ABS# (0-10) H* 12/22/21 16:18 Troponin T Hi Sens 6Hr 68.98 ng/L (0-15) H 12/22/21 20:20 Troponin T Hi Sens 6Hr Delta 11.98 ng/L (0-12) 12/22/21 20:20 C-Reactive Protein 121.6 mg/L (0.0-4.9) H 12/23/21 05:25 NT-Pro-B Natriuret Pep 3202 pg/mL (0-450) H 12/22/21 14:25 Total Protein 6.2 g/dL (6.6-8.7) L 12/23/21 05:25 Albumin 3.0 g/dL (3.5-5.2) L 12/23/21 05:25 Globulin 3.2 g/dL (1.3-4.6) 12/23/21 05:25 Lipase 38 U/L (13-60) 12/22/21 14:25 Procalcitonin 0.28 ng/mL (0-0.5) 12/22/21 14:25 Coronavirus 229E (PCR) Not detected (NOT DETECT) 12/22/21 15:25 SARS-CoV-2 (PCR) Detected (NOT DETECT) A 12/22/21 15:25 Vitals Last Vital Signs Temp 98.2 F 12/27/21 08:00 Pulse 84 12/27/21 08:00 Resp 18 12/27/21 08:00 BP 132/73 12/27/21 08:00 Pulse Ox 98 12/27/21 08:00 Discharge Plan Discharge Patient Disposition: Home Condition: Stable Prescriptions: New albuterol sulfate 90 mcg/actuation HFA aerosol inhaler 2 inh inhalation Q8H PRN (Reason: shortness of breath or wheezing) Qty: 8.5 2RF Continued aspirin 325 mg tablet 325 mg PO DAILY 0RF clopidogrel 75 mg tablet 75 mg PO DAILY 0RF Lantus Solostar U-100 Insulin 100 unit/mL (3 mL) insulin pen 18 unit SUBCUT BID 0RF losartan 100 mg tablet 50 mg PO DAILY 0RF omeprazole 20 mg tablet,delayed release (DR/EC) 20 mg PO BID 0RF rosuvastatin 20 mg tablet 20 mg PO DAILY 0RF multivitamin Tablet 1 tab PO DAILY 0RF metoprolol tartrate 100 mg Tablet 50 mg PO BID 0RF Vitamin C 500 mg Tablet 500 mg PO DAILY 0RF Novolog Flexpen U-100 Insulin 100 unit/mL (3 mL) Insulin Pen 16 unit SUBCUT TID 0RF magnesium oxide 400 mg magnesium Tablet 400 mg PO DAILY 0RF Advair Diskus 100-50 mcg/dose Blister With Device 1 inh INHALATION BID Qty: 1 3RF Lasix 20 mg Tablet 20 mg PO QAM Qty: 30 3RF potassium chloride 20 mEq Tablet Extended Release 20 meq PO DAILY Qty: 30 3RF Discontinued ProAir HFA 90 mcg/actuation Hfa Aerosol Inhaler 2 puff INHALATION Q4H PRN (Reason: Shortness Of Breath) 0RF Discharge Orders: Discharge Order (Routine); Ordered 12/27/21 Ordered By: Lalito Hook Other Ambulatory Orders: DME: Oxygen (Order) Location: None Selected Ordered By: Lalito Hook Referrals: Marcelo De Santiago DO [Primary Care Provider] - (Call Wednesday12/29/21 to make a hospital follow up appointment ) Patient Instructions: Opioid Safety Discharge Attestations Time Spent in Discharge Care*: less than 30 min Quality Metrics Clinical Quality Measures [ No reported AMI, CVA or VTE this stay] Coding Level of Care Code Acute g [facility] note Diagnoses Carotid artery disease I77.9 Acute kidney injury superimposed on chronic kidney disease N17.9; N18.9 Delirium R41.0 COVID U07.1 CHF exacerbation I50.9
--- NOTE | 2021-12-27 10:37 | PC.RESP ---
pt qualified for 4 lpm for home o2
[2021-12-27 11:15] LABS: Glucose Point of Care 245 mg/dL (70-110)
--- NOTE | 2021-12-27 12:28 | PC.NURSE ---
PT HAS DONE WELL TODAY. PT IS AMBULATING IN HIS ROOM AND DOING VERY WELL. PT IS READY TO GO HOME AND WILL DISCHARGE TODAY PER DR SHERIDAN. DISCHARGE PAPERWORK GONE OVER WITH PT. ALL QUESTIONS ANSWERED. PTS HOME OXYGEN HAS BEEN DELIVERED. IV REMOVED. CATHETER TIP INTACT. PT TOLERATED WELL. PT SAFELY WHEELED OUT BY THIS NURSE.
== END 2021-12-27 12:33 | disposition home health service (06) | DRG 177 ==
LOC: ER 15:48 → ER IP 17:22 → MEDSURG 21:18 → ER IP 12-23 06:01 → MEDSURG 12-23 06:01
PROVIDERS: Admitting Provider Internal Medicine; Emergency Provider Emergency Medicine; PCP Emergency Medicine Emergency Medical Services; Visit Provider Internal Medicine
DX: U07.1 COVID-19 (principal); I50.21 Acute systolic (congestive) heart failure; J12.82 Pneumonia due to coronavirus disease 2019; N17.9 Acute kidney failure, unspecified; G93.40 Encephalopathy, unspecified; I13.0 Hypertensive heart and chronic kidney disease with heart failure and stage 1 through stage 4 chronic kidney disease, or unspecified chronic kidney disease; I25.10 Atherosclerotic heart disease of native coronary artery without angina pectoris; Z79.82 Long term (current) use of aspirin; Z79.4 Long term (current) use of insulin; Z95.1 Presence of aortocoronary bypass graft; E78.5 Hyperlipidemia, unspecified; E11.65 Type 2 diabetes mellitus with hyperglycemia; E11.21 Type 2 diabetes mellitus with diabetic nephropathy; Z87.891 Personal history of nicotine dependence; N18.30 Chronic kidney disease, stage 3 unspecified; E86.0 Dehydration; I65.21 Occlusion and stenosis of right carotid artery; R09.02 Hypoxemia
CPT/HCPCS: 36415; 36416; 36600; 70450; 70496; 70498; 71045; 71275; 80048; 80051; 80053; 82330; 82803; 82805; 82962; 83690; 83735; 83880; 84145; 84484; 85025; 86140; 87635; 93005; 93308; 93970; 94640; 96365; 96372; 96375; 97116; 97161; 97530; 99285; J0696; J1100; J1650; J1815 ×2; J1940; J3490; J7030; J7626; Q9967

== ENCOUNTER → 2022-01-22 10:31 | Outpatient (BNVA) | payer OTHER, SELFPAY | PROVIDERS: PCP Emergency Medicine Emergency Medical Services; Visit Provider Thoracic Surgery (Cardiothoracic Vascular Surgery) | DX: I77.9 Disorder of arteries and arterioles, unspecified (principal); Z87.891 Personal history of nicotine dependence | CPT/HCPCS: 99203 ==

== ENCOUNTER 2022-02-17 11:50 | Outpatient (CLI) | payer OTHER, SELFPAY ==
--- NOTE | 2022-02-17 12:33 | CT_ITS ---
WS: [id number] CT CHEST TECHNIQUE: Noncontrast CT of the chest with coronal and sagittal reformatted images. CLINICAL INFORMATION: HX OF LUNG CANCER/INCREASED CONGESTION COMPARISON: None. DLP: 710.[address] scans at [facility] use at least one of these dose optimization techniques: automated e xposure control; mA and/or kV adjustment per patient size (includes targeted exams where dose is matc hed to clinical indication); or iterative reconstruction. FINDINGS: Moderate chronic emphysematous changes. Previously described hazy groundglass infiltrates have essent ially resolved compared to previous. No new or progressed pulmonary infiltrates. Round atelectasis in the right infrahilar extending along the posterior mediastinum with air bronchograms is unchanged. S mall left pleural effusion. Slight subsegmental atelectasis along the LEFT fissure and lingula. Heterogeneous nodule involving the thyroid isthmus measuring 2.7 x 2.2 CM. No axillary lymphadenopath y. A few prominent paratracheal lymph nodes the largest measuring 1.3 CM unchanged. No hilar lymphade nopathy. Mild aortic calcification. Normal caliber thoracic aorta. Sternotomy. Adrenal glands are normal. Smal l left renal cyst measuring 1.5 cm. Partially visualized Cholelithiasis with small calculus in the cy stic duct or proximal common bile duct unchanged. Normal GE junction. Fatty atrophy of the pancreas. Sternotomy with mediastinal clips. CT/CT chest wo con [id number] IMPRESSION: 1. Previously described hazy groundglass pulmonary infiltrates have improved a nd essentially resolved compared to previous. 2. Stable area of round atelectasis in the RIGHT lower lobe with air bronchogr ams. 3. Small LEFT pleural effusion. 4. Cholelithiasis with small calculus in the cystic duct or proximal common bi le duct is unchanged. 5. Heterogeneous nodule involving the thyroid isthmus is stable.
== END 2022-02-17 11:51 | disposition home or self-care (01) ==
LOC: RAD 11:57
PROVIDERS: PCP Emergency Medicine Emergency Medical Services; Visit Provider Emergency Medicine Emergency Medical Services
DX: Z85.118 Personal history of other malignant neoplasm of bronchus and lung (principal); J90 Pleural effusion, not elsewhere classified; R91.1 Solitary pulmonary nodule; K80.20 Calculus of gallbladder without cholecystitis without obstruction; J98.11 Atelectasis; R91.8 Other nonspecific abnormal finding of lung field
CPT/HCPCS: 71250

== ENCOUNTER 2022-02-20 13:27 | Outpatient (CLI) | payer OTHER, SELFPAY ==
--- NOTE | 2022-02-20 13:44 | US_ITS ---
WS: [id number] RENAL ULTRASOUND HISTORY: RENAL CYST-12 MONTH FOLLOW UP COMPARISON: None available. TECHNIQUE: 2-D and color Doppler imaging of the kidney submitted. Right kidney: 10.8 cm x 7.0 cm x 6.0 cm. Normal echogenicity with no hydronephrosis or mass. Left kidney: 11.2 cm x 5.8 cm x 5.0 cm. Normal size kidney. Exophytic cyst from the upper pole measures 1.7 x 1.8 x 1.5 cm. No hydronephrosis or mass. Aorta: Normal. Urinary Bladder: Normal distention. US/US renal BI* [id number] IMPRESSION: 1. No hydronephrosis. 2. Normal size kidneys. 3. Simple cyst upper pole LEFT kidney.
== END 2022-02-20 13:28 | disposition home or self-care (01) ==
LOC: RAD 13:37
PROVIDERS: PCP Emergency Medicine Emergency Medical Services; Visit Provider Emergency Medicine Emergency Medical Services
DX: Z01.89 Encounter for other specified special examinations (principal); N28.1 Cyst of kidney, acquired
CPT/HCPCS: 76770

== ENCOUNTER 2022-02-26 09:44 | Outpatient (CLI) | payer OTHER, SELFPAY ==
--- NOTE | 2022-02-26 10:00 | US_ITS ---
WS: [id number] RIGHT UPPER QUADRANT ULTRASOUND HISTORY: K80.20 - Calculus of gallbladder without cholecystitis COMPARISON: 02/17/2022 Liver: 14.7 cm in length. Normal size liver. No mass identified. Normal portal vein. Portal Vein: Normal hepatopetal flow with monophasic waveform. Gallbladder: Normally distended gallbladder with several stones in the dependent portion of the gallb ladder. There is shadowing and stones identified in the region of the gallbladder neck. No choledocho lithiasis identified. CBD: 0.6 cm Pancreas: Poorly visualized. Right kidney: 11.1 cm in length. Normal size and echogenicity. No hydronephrosis or mass. Aorta and IVC: Unremarkable abdominal aorta and IVC. No ascites. US/US gall bladder [id number] IMPRESSION: 1. Cholelithiasis without acute cholecystitis. 2. There are several stones in the dependent gallbladder extending into the ga llbladder neck. Patient at risk for acute cholecystitis. 3. No choledocholithiasis identified by ultrasound.
== END 2022-02-26 09:45 | disposition home or self-care (01) ==
LOC: RAD 09:49
PROVIDERS: PCP Emergency Medicine Emergency Medical Services; Visit Provider Surgery
DX: K80.20 Calculus of gallbladder without cholecystitis without obstruction (principal)
CPT/HCPCS: 76705

== ENCOUNTER 2022-03-03 10:32 | Outpatient (RCR) | payer OTHER, SELFPAY | END 2022-03-21 23:59 | disposition home or self-care (01) | LOC: SPT 10:32 | PROVIDERS: PCP Emergency Medicine Emergency Medical Services; Referring Provider Emergency Medicine Emergency Medical Services; Visit Provider Emergency Medicine Emergency Medical Services | DX: M62.81 Muscle weakness (generalized) (principal) | CPT/HCPCS: 97110; 97162 ==

== ENCOUNTER → 2022-03-04 15:16 | Outpatient (BNVA) | payer OTHER, SELFPAY | PROVIDERS: PCP Emergency Medicine Emergency Medical Services; Visit Provider Internal Medicine | DX: I13.0 Hypertensive heart and chronic kidney disease with heart failure and stage 1 through stage 4 chronic kidney disease, or unspecified chronic kidney disease (principal); I50.9 Heart failure, unspecified; N18.30 Chronic kidney disease, stage 3 unspecified; E11.59 Type 2 diabetes mellitus with other circulatory complications; I25.10 Atherosclerotic heart disease of native coronary artery without angina pectoris; E78.5 Hyperlipidemia, unspecified; I77.9 Disorder of arteries and arterioles, unspecified; Z79.4 Long term (current) use of insulin; Z79.82 Long term (current) use of aspirin; Z87.891 Personal history of nicotine dependence | CPT/HCPCS: 99214 ==

== ENCOUNTER 2022-03-09 09:51 | Outpatient (CLI) | payer OTHER, SELFPAY ==
[2022-03-09 10:37] LABS: Basophils # 0.1 10^3/uL (0.0-0.1); Basophils % 0.9 %; Eosinophils # 0.4 10^3/uL (0.0-0.8); Eosinophils % 3.6 %; Hematocrit 45.3 % (42.0-52.0); Hemoglobin 14.6 g/dL (11.7-16.6); Lymphocytes # 2.5 10^3/uL (0.8-4.8); Lymphocytes % 22.7 %; Mean Corpuscular HGB Conc 32.2 g/dL (30.0-36.0); Mean Corpuscular Hemoglobin 30.3 pg (28.0-34.0); Mean Platelet Volume 10.6 fL (7.4-10.4); Monocytes # 0.9 10^3/uL (0.2-0.9); Monocytes % 7.9 %; Neutrophils # 7.03 10^3/uL (1.8-7.7); Neutrophils % 64.4 %; Nucleated Red Blood Cells % 0 %; Platelet Count 377 10^3/cmm (130-400); Red Blood Count 4.82 10^6/uL (4.1-5.3); Red Cell Distribution Width 13.9 % (12.1-15.1); White Blood Count 10.9 10^3/uL (4.0-10.0)
[2022-03-09 11:00] LABS: Alanine Aminotransferase 13 U/L (0-41); Albumin Level 3.9 g/dL (3.5-5.2); Alkaline Phosphatase 91 IU/L (40-130); Aspartate Amino Transferase 19 U/L (0-40); Blood Urea Nitrogen 22 mg/dL (8-23); Carbon Dioxide 27 mmol/L (22-29); Chloride 102 mmol/L (98-107); Globulin 3.5 g/dL (1.3-4.6); Glucose 197 mg/dL (65-115); Osmolality Calculated 293 mOsm/kg (285-295); Sodium 137 mmol/L (136-145); Total Bilirubin 0.3 mg/dL (0.15-1.2); Total Protein 7.4 g/dL (6.6-8.7)
[2022-03-09 11:08] LABS: Anion Gap 12.7 (5-19); Potassium 4.7 mmol/L (3.5-5.1)
== END 2022-03-09 09:52 | disposition home or self-care (01) ==
PROVIDERS: PCP Emergency Medicine Emergency Medical Services; Visit Provider Surgery
DX: K80.20 Calculus of gallbladder without cholecystitis without obstruction (principal)
CPT/HCPCS: 36415; 80053; 85025; 99214

== ENCOUNTER → 2022-03-12 13:18 | Outpatient (BNVA) | payer OTHER, SELFPAY | PROVIDERS: PCP Emergency Medicine Emergency Medical Services; Visit Provider Internal Medicine | DX: E11.59 Type 2 diabetes mellitus with other circulatory complications (principal); E11.21 Type 2 diabetes mellitus with diabetic nephropathy; I25.10 Atherosclerotic heart disease of native coronary artery without angina pectoris; E11.22 Type 2 diabetes mellitus with diabetic chronic kidney disease; N18.30 Chronic kidney disease, stage 3 unspecified; E78.5 Hyperlipidemia, unspecified; E16.0 Drug-induced hypoglycemia without coma; T38.3X5A Adverse effect of insulin and oral hypoglycemic [antidiabetic] drugs, initial encounter; Z79.4 Long term (current) use of insulin; Z87.891 Personal history of nicotine dependence | CPT/HCPCS: 99214 ==

== ENCOUNTER 2022-03-22 06:00 | Outpatient (RCR) | payer OTHER, SELFPAY | END 2022-04-21 23:59 | disposition home or self-care (01) | LOC: SPT 06:00 | PROVIDERS: PCP Emergency Medicine Emergency Medical Services; Referring Provider Emergency Medicine Emergency Medical Services; Visit Provider Emergency Medicine Emergency Medical Services | DX: M62.81 Muscle weakness (generalized) (principal) | CPT/HCPCS: 97110 ==

== ENCOUNTER → 2022-06-15 12:54 | Outpatient (BNVA) | payer OTHER, SELFPAY | PROVIDERS: PCP Emergency Medicine Emergency Medical Services; Visit Provider Internal Medicine | DX: E11.59 Type 2 diabetes mellitus with other circulatory complications (principal); E11.21 Type 2 diabetes mellitus with diabetic nephropathy; E11.649 Type 2 diabetes mellitus with hypoglycemia without coma; E11.22 Type 2 diabetes mellitus with diabetic chronic kidney disease; I25.10 Atherosclerotic heart disease of native coronary artery without angina pectoris; E78.5 Hyperlipidemia, unspecified; N18.30 Chronic kidney disease, stage 3 unspecified; E16.0 Drug-induced hypoglycemia without coma; T38.3X5A Adverse effect of insulin and oral hypoglycemic [antidiabetic] drugs, initial encounter; Z79.4 Long term (current) use of insulin; Z87.891 Personal history of nicotine dependence | CPT/HCPCS: 99215 ==

== ENCOUNTER → 2022-07-22 10:55 | Outpatient (BNVA) | payer OTHER, SELFPAY | PROVIDERS: PCP Emergency Medicine Emergency Medical Services; Visit Provider Internal Medicine | DX: E11.649 Type 2 diabetes mellitus with hypoglycemia without coma (principal); E11.59 Type 2 diabetes mellitus with other circulatory complications; E11.21 Type 2 diabetes mellitus with diabetic nephropathy; E11.22 Type 2 diabetes mellitus with diabetic chronic kidney disease; N18.30 Chronic kidney disease, stage 3 unspecified; E16.0 Drug-induced hypoglycemia without coma; T38.3X5A Adverse effect of insulin and oral hypoglycemic [antidiabetic] drugs, initial encounter; E78.5 Hyperlipidemia, unspecified; I25.10 Atherosclerotic heart disease of native coronary artery without angina pectoris; Z79.4 Long term (current) use of insulin | CPT/HCPCS: 99214 ==

== ENCOUNTER → 2022-09-02 14:43 | Outpatient (BNVA) | payer OTHER, SELFPAY | PROVIDERS: PCP Emergency Medicine Emergency Medical Services; Visit Provider Internal Medicine | DX: I13.0 Hypertensive heart and chronic kidney disease with heart failure and stage 1 through stage 4 chronic kidney disease, or unspecified chronic kidney disease (principal); E11.22 Type 2 diabetes mellitus with diabetic chronic kidney disease; N18.30 Chronic kidney disease, stage 3 unspecified; I50.9 Heart failure, unspecified; Z87.891 Personal history of nicotine dependence; Z79.4 Long term (current) use of insulin; I25.10 Atherosclerotic heart disease of native coronary artery without angina pectoris; Z95.1 Presence of aortocoronary bypass graft; E78.5 Hyperlipidemia, unspecified; E11.59 Type 2 diabetes mellitus with other circulatory complications | CPT/HCPCS: 99214 ==

== ENCOUNTER 2022-09-04 09:11 | Outpatient (CLI) | payer OTHER, SELFPAY ==
[2022-09-04 10:32] LABS: Alanine Aminotransferase 13 U/L (0-41); Alkaline Phosphatase 107 U/L (40-130); Anion Gap 10.8 (5-19); Aspartate Amino Transferase 13 U/L (0-40); Blood Urea Nitrogen 19 mg/dL (8-23); Calcium 10.6 mg/dL (8.5-10.5); Carbon Dioxide 29 mmol/L (22-29); Chloride 99 mmol/L (98-107); Chol HDL Ratio 5.48 mg/dL (1.0-5.00); Cholesterol 252 mg/dL (0-200); Glucose 208 mg/dL (65-115); HDL Cholesterol 46 mg/dL (60-100); LDL Cholesterol Calculated 176 mg/dL (50-129); LDL HDL Ratio 3.83 RATIO (0.00-3.22); Osmolality Calculated 288 mOsm/kg (285-295); Potassium 3.8 mmol/L (3.5-5.1); Sodium 135 mmol/L (136-145); Total Bilirubin 0.4 mg/dL (0.15-1.2); Triglycerides 150 mg/dL (0-150)
[2022-09-04 10:35] LABS: Estmated Average Glucose 186; Hemoglobin A1C 8.1 % (4.0-6.0)
== END 2022-09-04 09:12 | disposition home or self-care (01) ==
PROVIDERS: PCP Emergency Medicine Emergency Medical Services; Visit Provider Internal Medicine
DX: E11.59 Type 2 diabetes mellitus with other circulatory complications (principal); E78.5 Hyperlipidemia, unspecified; I25.10 Atherosclerotic heart disease of native coronary artery without angina pectoris; N18.30 Chronic kidney disease, stage 3 unspecified
CPT/HCPCS: 36415; 80053; 80061; 83036

== ENCOUNTER → 2022-09-09 14:40 | Outpatient (BNVA) | payer OTHER, SELFPAY | PROVIDERS: PCP Emergency Medicine Emergency Medical Services; Visit Provider Internal Medicine | DX: E11.21 Type 2 diabetes mellitus with diabetic nephropathy (principal); E11.59 Type 2 diabetes mellitus with other circulatory complications; E11.649 Type 2 diabetes mellitus with hypoglycemia without coma; I25.10 Atherosclerotic heart disease of native coronary artery without angina pectoris; E78.5 Hyperlipidemia, unspecified; E83.52 Hypercalcemia; N18.30 Chronic kidney disease, stage 3 unspecified; E16.0 Drug-induced hypoglycemia without coma; T38.3X5A Adverse effect of insulin and oral hypoglycemic [antidiabetic] drugs, initial encounter; B35.1 Tinea unguium; Z79.4 Long term (current) use of insulin | CPT/HCPCS: 99214 ==

== ENCOUNTER → 2023-01-13 12:50 | Outpatient (BNVA) | payer OTHER, SELFPAY | PROVIDERS: PCP Emergency Medicine Emergency Medical Services; Visit Provider Internal Medicine | DX: E11.59 Type 2 diabetes mellitus with other circulatory complications (principal); E11.21 Type 2 diabetes mellitus with diabetic nephropathy; E11.649 Type 2 diabetes mellitus with hypoglycemia without coma; E11.22 Type 2 diabetes mellitus with diabetic chronic kidney disease; E11.40 Type 2 diabetes mellitus with diabetic neuropathy, unspecified; B35.1 Tinea unguium; T38.3X5A Adverse effect of insulin and oral hypoglycemic [antidiabetic] drugs, initial encounter; E16.0 Drug-induced hypoglycemia without coma; N18.30 Chronic kidney disease, stage 3 unspecified; E83.52 Hypercalcemia; E78.5 Hyperlipidemia, unspecified; I25.10 Atherosclerotic heart disease of native coronary artery without angina pectoris; Z79.4 Long term (current) use of insulin | CPT/HCPCS: 99214 ==

== ENCOUNTER 2023-02-16 19:49 | Emergency (ER) | payer OTHER, SELFPAY ==
[2023-02-16 20:03] VITALS: BP 190/91; PULSE 104; RESP 18; TEMP 36.4; O2SAT 95; BMI 28.5
[2023-02-16 21:11] LABS: Basophils # 0.1 10^3/uL (0.0-0.1); Eosinophils # 0.2 10^3/uL (0.0-0.8); Hemoglobin 13.9 g/dL (11.7-16.6); Lymphocytes # 1.7 10^3/uL (0.8-4.8); Lymphocytes % 20.2 %; Mean Corpuscular HGB Conc 32.3 g/dL (30.0-36.0); Mean Corpuscular Hemoglobin 30.4 pg (28.0-34.0); Mean Corpuscular Volume 94.1 fl (80-94); Mean Platelet Volume 10.3 fL (7.4-10.4); Monocytes # 0.8 10^3/uL (0.2-0.9); Neutrophils # 5.66 10^3/uL (1.8-7.7); Neutrophils % 67.3 %; Nucleated Red Blood Cells % 0 %; Platelet Count 350 10^3/cmm (130-400); Red Blood Count 4.57 10^6/uL (4.1-5.3); Red Cell Distribution Width 14.3 % (12.1-15.1); White Blood Count 8.4 10^3/uL (4.0-10.0)
[2023-02-16 21:31] LABS: Alanine Aminotransferase 17 U/L (0-41); Alkaline Phosphatase 71 U/L (40-130); Anion Gap 12.9 (5-19); Aspartate Amino Transferase 18 U/L (0-40); Blood Urea Nitrogen 20 mg/dL (8-23); Calcium 10.6 mg/dL (8.5-10.5); Carbon Dioxide 26 mmol/L (22-29); Chloride 104 mmol/L (98-107); Globulin 3.2 g/dL (1.3-4.6); Glucose 297 mg/dL (65-115); Osmolality Calculated 300 mOsm/kg (285-295); Potassium 4.9 mmol/L (3.5-5.1); Sodium 138 mmol/L (136-145); Total Bilirubin 0.3 mg/dL (0.15-1.2); Total Protein 7.2 g/dL (6.6-8.7)
--- NOTE | 2023-02-16 22:07 | CTR_ITS ---
PROCEDURE INFORMATION: Exam: CT Neck With Contrast Exam date and time: 02/16/2023 10:32 PM Age: 78 years old Clinical indication: Mass, lump, or swelling in neck; Right; Prior surgery; Surgery type: Left carotid stent. Cabg; Patient HX: Anterior RT sided palpable mass at level of thryroid. ; Additional info: Mass right anterior neck TECHNIQUE: Imaging protocol: Computed tomography of the neck with contrast. Radiation optimization: All CT scans at this facility use at least one of these dose optimization techniques: automated exposure control; mA and/or kV adjustment per patient size (includes targeted exams where dose is matched to clinical indication); or iterative reconstruction. Contrast material: OMNI 350; Contrast volume: 75 ml; Contrast route: INTRAVENOUS (IV); REPORTING DATA: Count of CT and Cardiac NM exams in prior 12 months: This patient has received [address] and 0 known cardiac nuclear medicine studies in the 12 months prior to the current study. COMPARISON: CT angio headneck* [id number] 12/22/2021 6:10 PM RADIATION DOSE METRICS: Total DLP (mGy-cm): 225.1 FINDINGS: Dental: Examination is limited secondary to metallic artifact from dental fillings and/or dental hardware. Pharynx: Unremarkable. No significant tonsillar enlargement. Larynx: Unremarkable. Epiglottis is normal. Prevertebral and retropharyngeal spaces: Unremarkable. Salivary glands: See Soft tissues finding. Thyroid: Normal. No enlarged or calcified nodules. Lymph nodes: Unremarkable. No lymphadenopathy. Trachea: Visualized trachea is unremarkable. Lungs: Unremarkable as visualized. Bones/joints: See Soft tissues finding. Vasculature: Right carotid bifurcation calcified plaque. Left carotid bifurcation calcified plaque. Stable occlusion of the right internal carotid artery of indeterminate age. 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 CT/CT neck w con* [id number] IMPRESSION: 1. 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 2. Stable occlusion of the right internal carotid artery of indeterminate age.
--- NOTE | 2023-02-16 22:07 | W.ED.NECK ---
HPI - Neck Pain/Injury General: Chief Complaint: Neck Pain/Injury Stated Complaint: Back pain, Neck swollen, And neck pain Time Seen by Provider: 02/16/23 22:03 History of Present Illness: 78-year-old male patient comes in today with swelling to the right anterior neck. Patient denies any pain or discomfort. Patient reports that he had played golf earlier today without any difficulties or abnormalities. Patient had taken his evening meds and then took a drink of water and then noticed that he had some swelling to the right anterior neck. Patient appears nontoxic. Patient appears in no acute distress Associated symptoms: Denies headache(s) or nausea Review of Systems General: Reports: 10 or more systems reviewed and unremarkable except in HPI and below Const: Denies: fever(s) Eyes: Denies: change in vision ENMT: Reports: other (Anterior swelling to the right neck); Denies: throat pain, odynophagia or dental pain Card: Denies: chest pain Resp: Denies: dyspnea GI: Denies: nausea, vomiting, diarrhea or constipation : Denies: flank pain Musc: Denies: back pain Skin/Breast: Denies: rash Neuro: Denies: headache(s) PFSH ED PFSH: Medical History Atherosclerotic heart disease of [place] coronary artery with unspecified angina pectoris Carotid artery disease CHF (congestive heart failure) Chronic kidney disease, stage III (moderate) Coronary artery disease due to type 2 diabetes mellitus Coronary stent occlusion Essential hypertension Gastro-esophageal reflux disease without esophagitis History of left common carotid artery stent placement History of lung cancer History of prostate cancer Hyperlipidemia, unspecified Low back pain Malignant neoplasm of bronchus Type 2 diabetes mellitus Type 2 diabetes mellitus with diabetic nephropathy Surgical History History of colonoscopy Internal carotid artery stent present Left-sided S/P CABG x 5 Family History Brother CHF (congestive heart failure) Mother Lymphoma Sister Cancer Father No problems noted. Social History Smoking and tobacco status: former smoker Quit status (tobacco): has quit using tobacco Year quit tobacco: 1984 Former quit date comment: Smoked 4.5 pack per day x 25 years Alcohol intake: former Physical Exam Const: COMMON NORMALS: alert HENMT: COMMON NORMALS: Normal external nose present HEAD & SCALP: normal to inspection NOSE: Normal external nose present MOUTH: Normal oral and palatal mucosa present THROAT: posterior oropharynx normal Neck/C-Spine: COMMON NORMALS: full ROM OTHER: Anterior mobile mass to the right neck. Approximately 3 cm Resp: COMMON NORMALS: normal respiratory effort and clear to auscultation bilaterally AUSCULTATION: clear to auscultation bilaterally Cardio: COMMON NORMALS: regular rate and regular rhythm RATE: regular rate RHYTHM: regular rhythm GI: COMMON NORMALS: Soft to palpation and non-tender PALPATION: Yes Soft to palpation Extremity: COMMON NORMALS: normal to inspection Neuro: SENSORIUM/ORIENTATION: Yes alert Skin: COMMON NORMALS: turgor normal GENERAL SKIN EXAM: turgor normal Course Vital Signs: Vital signs: Vital Signs Temperature 97.5 F L 02/16/23 20:03 Pulse Rate 104 H 02/16/23 20:03 Respiratory Rate 18 02/16/23 20:03 Blood Pressure 190/91 02/16/23 20:03 Pulse Oximetry 95 02/16/23 20:03 Oxygen Delivery Me thod 02/16/23 20:03 MDM - Neck Pain/Injury Medical Decision Making 78-year-old male patient comes in today for complaints of swelling to the right anterior neck. Patient noticed this evening after taking his medication. On exam patient has a palpable mass approximately 3 cm to the right anterior neck. Patient reports minimal to no tenderness. Denies any fever or other symptoms. Posterior pharynx appears normal. Vital signs are normal except for some elevation in blood pressure at 190. Respirations are even lungs are clear to auscultation. Differential diagnosis includes but not limited to lymphadenitis, sialoadenitis, lymphoma, lipoma. Laboratory values noted no significant abnormalities. Patient does have some chronic kidney disease noted on the exam. CT of the neck noted a lipoma that was stable in size. Encourage activity and fluids. Follow-up with primary care for further instruction. Lab Data 02/16/23 20:57 02/16/23 20:[address] 02/16/23 22:07 IMPRESSION: 1. 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 2. Stable occlusion of the right internal carotid artery of indeterminate age. Laboratory Results WBC 8.4 10^3/uL (4.0-10.0) 02/16/23 20:57 RBC 4.57 10^6/uL (4.1-5.3) 02/16/23 20:57 Hgb 13.9 g/dL (11.7-16.6) 02/16/23 20:57 Hct 43.0 % (42.0-52.0) 02/16/23 20:57 MCV 94.1 fl (80-94) H 02/16/23 20:57 MCH 30.4 pg (28.0-34.0) 02/16/23 20:57 MCHC 32.3 g/dL (30.0-36.0) 02/16/23 20:57 RDW 14.3 % (12.1-15.1) 02/16/23 20:57 Plt Count 350 10^3/cmm (130-400) 02/16/23 20:57 MPV 10.3 fL (7.4-10.4) 02/16/23 20:57 Neut % (Auto) 67.3 % 02/16/23 20:57 Lymph % (Auto) 20.2 % 02/16/23 20:57 [place] % (Auto) 9.0 % 02/16/23 20:57 Eos % (Auto) 2.0 % 02/16/23 20:57 Baso % (Auto) 1.0 % 02/16/23 20:57 Neut # (Auto) 5.66 10^3/uL (1.8-7.7) 02/16/23 20:57 Lymph # (Auto) 1.7 10^3/uL (0.8-4.8) 02/16/23 20:57 [place] # (Auto) 0.8 10^3/uL (0.2-0.9) 02/16/23 20:57 Eos # (Auto) 0.2 10^3/uL (0.0-0.8) 02/16/23 20:57 Baso # (Auto) 0.1 10^3/uL (0.0-0.1) 02/16/23 20:57 Nucleated RBC % (auto) 0 % 02/16/23 20:57 Nucleated RBCs # 0.0 /100WBC 02/16/23 20:57 Sodium 138 mmol/L (136-145) 02/16/23 20:57 Potassium 4.9 mmol/L (3.5-5.1) 02/16/23 20:57 Chloride 104 mmol/L (98-107) 02/16/23 20:57 Carbon Dioxide 26 mmol/L (22-29) 02/16/23 20:57 Anion Gap 12.9 (5-19) 02/16/23 20:57 BUN 20 mg/dL (8-23) 02/16/23 20:57 Creatinine 1.6 mg/dL (0.7-1.2) H 02/16/23 20:57 GFR Calculation Not Reportable 02/16/23 20:57 Glucose 297 mg/dL (65-115) H 02/16/23 20:57 Calculated Osmolality 300 mOsm/kg (285-295) H 02/16/23 20:57 Calcium 10.6 mg/dL (8.5-10.5) H 02/16/23 20:57 Total Bilirubin 0.3 mg/dL (0.15-1.2) 02/16/23 20:57 AST 18 U/L (0-40) 02/16/23 20:57 ALT 17 U/L (0-41) 02/16/23 20:57 Alkaline Phosphatase 71 U/L (40-130) 02/16/23 20:57 Total Protein 7.2 g/dL (6.6-8.7) 02/16/23 20:57 Albumin 4.0 g/dL (3.5-5.2) 02/16/23 20:57 Globulin 3.2 g/dL (1.3-4.6) 02/16/23 20:57 Discharge Plan Discharge Patient Disposition: Home Clinical Impression: Lipoma of skin and subcutaneous tissue of neck Condition: Stable Prescriptions: No Action aspirin 325 mg tablet 325 mg PO DAILY clopidogrel 75 mg tablet 75 mg PO DAILY Verna Harrington U-100 Insulin 100 unit/mL (3 mL) insulin pen 35 unit SUBCUT DAILY omeprazole 20 mg tablet,delayed release (DR/EC) 20 mg PO BID PRN (Reason: medication [facility]) magnesium oxide,aspartate,citr 400 mg magnesium capsule PO DAILY magnesium citrate [Citrate of Magnesia] Solution 150 ml PO DAILY nitroglycerin 0.4 mg tablet, sublingual 0.4 mg sublingual Q5M PRN (Reason: chest pain) Qty: 20 3RF Rx Instructions: do not exceed 3 doses per episode Glucagon Emergency Kit (human) 1 mg recon soln 1 mg SUBCUT Q20M PRN (Reason: hypoglycemia) Qty: 3 3RF Rx Instructions: until target blood sugar attained losartan 100 mg tablet 100 mg PO DAILY (DME) Compression stockings See Rx Instructions .Route .MEDSUPPLY Qty: 6 0RF Rx Instructions: As directed by [place] Novolog FlexPen U-100 Insulin 100 unit/mL (3 mL) insulin pen 18 unit SUBCUT TID Qty: 45 3RF multivitamin Tablet 1 tab PO DAILY Vitamin C 500 mg Tablet 500 mg PO DAILY albuterol sulfate 90 mcg/actuation HFA aerosol inhaler 2 inh inhalation Q8H PRN (Reason: shortness of breath or wheezing) Qty: 8.5 2RF Advair Diskus 100-50 mcg/dose Blister With Device 1 inh INHALATION BID Qty: 1 3RF Lasix 20 mg Tablet 20 mg PO QAM Qty: 30 3RF potassium chloride 20 mEq Tablet Extended Release 20 meq PO DAILY Qty: 30 3RF Xanax 0.5 mg tablet 0.5 mg PO BID PRN (Reason: anxiety) Qty: 7 0RF Discharge Orders: Discharge ED (Routine); Ordered 02/16/23 Ordered By: Asad Larios Referrals: Marcelo De Santiago DO [Primary Care Provider] - Discharge Diet: Usual diet Discharge Activity: Increase activity as tolerated Patient Instructions: Lipoma (ED) Activity Restrictions/Additional Instructions: Follow-up with primary care for further evaluation and treatment. Coding Level of Care Code ED Screen Room Operator for Brandon Jaime
[2023-02-16] MEDS: iohexol 350 mg/mL 500 mL Btl (per mL) IV (22:36)
== END 2023-02-16 23:40 | disposition home or self-care (01) ==
PROVIDERS: Emergency Medicine; Emergency Provider Nurse Practitioner Family; PCP Emergency Medicine Emergency Medical Services
DX: E11.8 Type 2 diabetes mellitus with unspecified complications (principal); I73.9 Peripheral vascular disease, unspecified; E11.22 Type 2 diabetes mellitus with diabetic chronic kidney disease; E11.42 Type 2 diabetes mellitus with diabetic polyneuropathy; G62.9 Polyneuropathy, unspecified; E11.59 Type 2 diabetes mellitus with other circulatory complications; I25.10 Atherosclerotic heart disease of native coronary artery without angina pectoris; M20.41 Other hammer toe(s) (acquired), right foot; M20.42 Other hammer toe(s) (acquired), left foot; Z79.4 Long term (current) use of insulin; D17.0 Benign lipomatous neoplasm of skin and subcutaneous tissue of head, face and neck; Z79.82 Long term (current) use of aspirin; Z79.02 Long term (current) use of antithrombotics/antiplatelets; Z87.891 Personal history of nicotine dependence; I13.0 Hypertensive heart and chronic kidney disease with heart failure and stage 1 through stage 4 chronic kidney disease, or unspecified chronic kidney disease; N18.30 Chronic kidney disease, stage 3 unspecified; I50.9 Heart failure, unspecified; Z85.46 Personal history of malignant neoplasm of prostate; Z85.118 Personal history of other malignant neoplasm of bronchus and lung; E78.5 Hyperlipidemia, unspecified; Z95.1 Presence of aortocoronary bypass graft
CPT/HCPCS: 36415; 70491; 80053; 85025; 99204; 99285; Q9967

== ENCOUNTER → 2023-03-03 15:27 | Outpatient (BNVA) | payer OTHER, SELFPAY | PROVIDERS: PCP Emergency Medicine Emergency Medical Services; Visit Provider Nurse Practitioner Family | DX: I13.0 Hypertensive heart and chronic kidney disease with heart failure and stage 1 through stage 4 chronic kidney disease, or unspecified chronic kidney disease (principal); E11.22 Type 2 diabetes mellitus with diabetic chronic kidney disease; N18.30 Chronic kidney disease, stage 3 unspecified; I50.9 Heart failure, unspecified; Z87.891 Personal history of nicotine dependence; Z79.4 Long term (current) use of insulin; E11.59 Type 2 diabetes mellitus with other circulatory complications; I25.10 Atherosclerotic heart disease of native coronary artery without angina pectoris; I77.9 Disorder of arteries and arterioles, unspecified; Z95.1 Presence of aortocoronary bypass graft | CPT/HCPCS: 99214 ==

== ENCOUNTER 2023-04-08 09:09 | Outpatient (CLI) | payer OTHER, SELFPAY ==
[2023-04-08 10:32] LABS: Creatinine Urine, Random 88 mg/dL (39-259); Microalbum Creatinine Ratio Ur 11 mg/dL (0-20); Microalbumin Random Urine 1 ug/dL (0-20)
[2023-04-08 10:33] LABS: Alanine Aminotransferase 11 U/L (0-41); Alkaline Phosphatase 70 U/L (40-130); Anion Gap 14.3 (5-19); Aspartate Amino Transferase 14 U/L (0-40); Blood Urea Nitrogen 18 mg/dL (8-23); Calcium 10.1 mg/dL (8.5-10.5); Carbon Dioxide 27 mmol/L (22-29); Chloride 104 mmol/L (98-107); Chol HDL Ratio 3.84 mg/dL (1.0-5.00); Cholesterol 188 mg/dL (0-200); Globulin 2.9 g/dL (1.3-4.6); Glucose 137 mg/dL (65-115); HDL Cholesterol 49 mg/dL (60-100); LDL Cholesterol Calculated 111 mg/dL (50-129); LDL HDL Ratio 2.27 RATIO (0.00-3.22); Osmolality Calculated 296 mOsm/kg (285-295); Potassium 4.3 mmol/L (3.5-5.1); Sodium 141 mmol/L (136-145); Total Bilirubin 0.3 mg/dL (0.15-1.2); Total Protein 6.9 g/dL (6.6-8.7); Triglycerides 141 mg/dL (0-150)
[2023-04-08 10:39] LABS: Estmated Average Glucose 151; Hemoglobin A1C 6.9 % (4.0-6.0)
[2023-04-08 10:47] LABS: Parathyroid Hormone 45.4 pg/mL (15-65)
== END 2023-04-08 09:10 | disposition home or self-care (01) ==
PROVIDERS: PCP Emergency Medicine Emergency Medical Services; Visit Provider Internal Medicine
DX: E11.59 Type 2 diabetes mellitus with other circulatory complications (principal); I25.10 Atherosclerotic heart disease of native coronary artery without angina pectoris
CPT/HCPCS: 36415; 80053; 80061; 82044; 82310; 83036; 83970

== ENCOUNTER → 2023-04-15 14:40 | Outpatient (BNVA) | payer OTHER, SELFPAY | PROVIDERS: PCP Emergency Medicine Emergency Medical Services; Visit Provider Internal Medicine | DX: E11.59 Type 2 diabetes mellitus with other circulatory complications (principal); E11.649 Type 2 diabetes mellitus with hypoglycemia without coma; E11.21 Type 2 diabetes mellitus with diabetic nephropathy; I25.10 Atherosclerotic heart disease of native coronary artery without angina pectoris; E78.5 Hyperlipidemia, unspecified; E83.52 Hypercalcemia; E16.0 Drug-induced hypoglycemia without coma; Z79.4 Long term (current) use of insulin; X58.XXXA Exposure to other specified factors, initial encounter; T38.3X5A Adverse effect of insulin and oral hypoglycemic [antidiabetic] drugs, initial encounter; B35.1 Tinea unguium | CPT/HCPCS: 99214 ==

== ENCOUNTER 2023-07-14 09:06 | Outpatient (CLI) | payer OTHER, SELFPAY ==
[2023-07-14 10:17] LABS: Estmated Average Glucose 151; Hemoglobin A1C 6.9 % (4.0-6.0)
[2023-07-14 10:26] LABS: Alanine Aminotransferase 12 U/L (0-41); Albumin Level 2.9 g/dL (3.5-5.2); Alkaline Phosphatase 92 U/L (40-130); Anion Gap 16.9 (5-19); Aspartate Amino Transferase 17 U/L (0-40); Blood Urea Nitrogen 37 mg/dL (8-23); Carbon Dioxide 23 mmol/L (22-29); Chloride 100 mmol/L (98-107); Chol HDL Ratio 4.69 mg/dL (1.0-5.00); Cholesterol 197 mg/dL (0-200); Globulin 3.6 g/dL (1.3-4.6); Glucose 205 mg/dL (65-115); HDL Cholesterol 42 mg/dL (60-100); LDL Cholesterol Calculated 122 mg/dL (50-129); NT Pro B Type Natriuretic Pept 2544 pg/mL (0-450); Osmolality Calculated 297 mOsm/kg (285-295); Potassium 3.9 mmol/L (3.5-5.1); Sodium 136 mmol/L (136-145); Total Bilirubin 0.3 mg/dL (0.15-1.2); Total Protein 6.5 g/dL (6.6-8.7); Triglycerides 163 mg/dL (0-150)
[2023-07-14 18:38] LABS: Creatinine Urine, Random 99 mg/dL (39-259); Microalbum Creatinine Ratio Ur 10 mg/dL (0-20); Microalbumin Random Urine 1 ug/dL (0-20)
== END 2023-07-14 09:07 | disposition home or self-care (01) ==
PROVIDERS: Absent Provider Internal Medicine; PCP Emergency Medicine Emergency Medical Services; Visit Provider Internal Medicine
DX: E78.5 Hyperlipidemia, unspecified (principal); E11.59 Type 2 diabetes mellitus with other circulatory complications; I25.10 Atherosclerotic heart disease of native coronary artery without angina pectoris; E11.22 Type 2 diabetes mellitus with diabetic chronic kidney disease; I12.9 Hypertensive chronic kidney disease with stage 1 through stage 4 chronic kidney disease, or unspecified chronic kidney disease; N18.30 Chronic kidney disease, stage 3 unspecified
CPT/HCPCS: 36415; 80053; 80061; 82044; 83036; 83880

== ENCOUNTER 2023-07-15 11:15 | Inpatient (IN) | payer OTHER, SELFPAY ==
[2023-07-15] VITALS (7 sets, daily range): BP systolic 109–160; BP diastolic 58–82; PULSE 78–102; RESP 16–18; TEMP 36.3–36.7; O2SAT 93–96
--- NOTE | 2023-07-15 13:09 | ED_ITS ---
HPI - Recheck/Abnormal Lab/Rx General: Chief Complaint: Recheck/Abnormal Lab/Rx Stated Complaint: sent from [facility] to [facility] Time Seen by Provider: 07/15/23 13:01 Source: patient Mode of arrival: ambulatory History of Present Illness: 78-year-old male presents emergency room with hypercalcemia. He is wood buffer seen him yesterday had routine blood work done as calcium came back at 12. Corrected calcium for albumin would actually be 12.9. He has a history of long prostate cancers as well as melanoma is not currently being treated for them. These are all past histories which she has completed treatment for he has no known active cancers. He has had a significant weight loss of around 45 pounds in the last 3 months. He has generalized aches and pains and also has a history of congestive heart failure. He does take Lasix 20 mg daily and potassium supplement. MD complaint: abnormal lab Review of Systems Const: Reports: body aches and change in weight (45 pound weight loss 3 months); Denies: fever(s), chills, fatigue or malaise Card: Denies: chest pain, edema, dyspnea on exertion or orthopnea Resp: Denies: dyspnea, productive cough or non-productive cough GI: Denies: abdominal pain, nausea, vomiting, hematemesis, coffee ground emesis, diarrhea, constipation, bloating, hematochezia or melena : Denies: flank pain, dysuria, urinary frequency or urinary urgency Skin/Breast: Denies: rash or pruritus PFSH ED PFSH: Medical History Atherosclerotic heart disease of [place] coronary artery with unspecified angina pectoris Carotid artery disease CHF (congestive heart failure) Chronic kidney disease, stage III (moderate) Coronary artery disease due to type 2 diabetes mellitus Coronary stent occlusion Essential hypertension Gastro-esophageal reflux disease without esophagitis History of left common carotid artery stent placement History of lung cancer History of prostate cancer Hyperlipidemia, unspecified Low back pain Malignant neoplasm of bronchus Type 2 diabetes mellitus Type 2 diabetes mellitus with diabetic nephropathy Surgical History History of colonoscopy Internal carotid artery stent present Left-sided S/P CABG x 5 Family History Brother CHF (congestive heart failure) Mother Lymphoma Sister Cancer Father No problems noted. Social History Smoking and tobacco status: former smoker Quit status (tobacco): has quit using tobacco Year quit tobacco: 1984 Former quit date comment: Smoked 4.5 pack per day x 25 years Alcohol intake: former Substance/Drug Use: never Physical Exam Const: GENERAL APPEARANCE: cooperative and comfortable ORIENTATION/CONSCIOUSNESS: Yes awake, Yes oriented to person, Yes oriented to place and Yes oriented to time HENMT: COMMON NORMALS: normocephalic, atraumatic and hearing grossly normal bilaterally HEAD & SCALP: normocephalic and atraumatic Resp: COMMON NORMALS: normal respiratory effort, No retractions, No use of accessory muscles and clear to auscultation bilaterally AUSCULTATION: clear to auscultation bilaterally Cardio: COMMON NORMALS: regular rate, regular rhythm and No murmurs present (Cardio) RATE: regular rate RHYTHM: regular rhythm GI: COMMON NORMALS: Soft to palpation and No hepatosplenomegaly present A USCULTATION: Yes normoactive bowel sounds PALPATION: Yes Soft to palpation, No Tenderness to palpation present (GI), No Guarding due to palpation present (GI) and Yes No hepatosplenomegaly present Extremity: COMMON NORMALS: normal to inspection, capillary refill normal, no clubbing, cyanosis or edema, no calf tenderness and no pedal edema Neuro: SENSORIUM/ORIENTATION: Yes oriented to person, Yes oriented to place and Yes oriented to time Skin: COMMON NORMALS: no rashes or lesions noted GENERAL SKIN EXAM: no rashes or lesions noted Course Vital Signs: Vital signs: Vital Signs Temperature 97.7 F 07/15/23 11:24 Pulse Rate 98 07/15/23 14:30 Respiratory Rate 18 07/15/23 13:25 Blood Pressure 155/78 07/15/23 14:30 Pulse Oximetry 96 07/15/23 14:30 Oxygen Delivery Me thod Nasal Cannula 07/15/23 15:51 Oxygen Flow Rate 2 07/15/23 15:51 MDM - Recheck/Abnormal Lab/Rx Medical Decision Making Chest x-ray shows what appears to be a large mass in the left upper lobe suspect postobstructive pneumonia cultures done we will start him on antibiotics. We have ordered calcitonin biphosphonate to reduce his calcium I suspect that there will be an underlying tumor which is the cause of his hypercalcemia we will admit discussed with Dr. Bernal orders written Medical Records I reviewed the patient's medical records. Lab Data I reviewed the patient's lab results. 07/15/23 13:22 07/15/23 13:22 Laboratory Results WBC 18.45 10^3/uL (3.29-11.43) H 07/15/23 13:22 RBC 4.86 10^6/uL (3.85-5.65) 07/15/23 13:22 Hgb 14.30 g/dL (11.27-16.99) 07/15/23 13:22 Hct 44.6 % (37-53) 07/15/23 13:22 MCV 91.8 fl (82-101) 07/15/23 13:22 MCH 29.4 pg (27-33) 07/15/23 13:22 MCHC 32.1 g/dL (30-55) 07/15/23 13:22 RDW 12.8 % (12.1-15.1) 07/15/23 13:22 Plt Count 614 10^3/cmm (157-399) H 07/15/23 13:22 MPV 10.5 fL (7.4-10.4) H 07/15/23 13:22 Neut % (Auto) 83.2 % 07/15/23 13:22 Lymph % (Auto) 7.9 % 07/15/23 13:22 [place] % (Auto) 6.2 % 07/15/23 13:22 Eos % (Auto) 0.4 % 07/15/23 13:22 Baso % (Auto) 0.5 % 07/15/23 13:22 Neut # (Auto) 15.35 10^3/uL (1.8-7.7) H 07/15/23 13:22 Lymph # (Auto) 1.5 10^3/uL (0.8-4.8) 07/15/23 13:22 [place] # (Auto) 1.1 10^3/uL (0.2-0.9) H 07/15/23 13:22 Eos # (Auto) 0.1 10^3/uL (0.0-0.8) 07/15/23 13:22 Baso # (Auto) 0.1 10^3/uL (0.0-0.1) 07/15/23 13:22 Nucleated RBC % (auto) 0 % 07/15/23 13:22 Nucleated RBCs # 0.0 /100WBC 07/15/23 13:22 Sodium 136 mmol/L (136-145) 07/15/23 13:22 Potassium 3.9 mmol/L (3.5-5.1) 07/15/23 13:22 Chloride 98 mmol/L (98-107) 07/15/23 13:22 Carbon Dioxide 24 mmol/L (22-29) 07/15/23 13:22 Anion Gap 17.9 (5-19) 07/15/23 13:22 BUN 33 mg/dL (8-23) H 07/15/23 13:22 Creatinine 1.6 mg/dL (0.7-1.2) H 07/15/23 13:22 GFR Calculation Not Reportable 07/15/23 13:22 Glucose 199 mg/dL (65-115) H 07/15/23 13:22 Calculated Osmolality 295 mOsm/kg (285-295) 07/15/23 13:22 Calcium 12.7 mg/dL (8.5-10.5) H 07/15/23 13:22 Ionized Calcium Philip 1.7 mmol/L (1.1-1.4) H 07/15/23 13:22 Total Bilirubin 0.4 mg/dL (0.15-1.2) 07/15/23 13:22 AST 22 U/L (0-40) 07/15/23 13:22 ALT 18 U/L (0-41) 07/15/23 13:22 Alkaline Phosphatase 109 U/L (40-130) 07/15/23 13:22 Total Protein 7.3 g/dL (6.6-8.7) 07/15/23 13:22 Albumin 3.3 g/dL (3.5-5.2) L 07/15/23 13:22 Globulin 4.0 g/dL (1.3-4.6) 07/15/23 13:22 Discharge Plan Discharge Patient Disposition: Admitted As Inpatient Admit Provider: Kaz Cruz Clinical Impression: Hypercalcemia, Chronic kidney disease, stage III (moderate), COVID, Mass of upper lobe of left lung, Postobstructive pneumonia Condition: Stable Coding Level of Care Code ED End Touching Machine Operator for Brandon Jaime
[2023-07-15] MEDS: sodium chloride 0.9% 1,000 ML 999 ML IV (13:19)
[2023-07-15 13:31] LABS: Ionized Calcium 1.7 mmol/L (1.1-1.4)
[2023-07-15 13:33] LABS: Basophils # 0.1 10^3/uL (0.0-0.1); Basophils % 0.5 %; Eosinophils # 0.1 10^3/uL (0.0-0.8); Eosinophils % 0.4 %; Hematocrit 44.6 % (37-53); Lymphocytes # 1.5 10^3/uL (0.8-4.8); Lymphocytes % 7.9 %; Mean Corpuscular HGB Conc 32.1 g/dL (30-55); Mean Corpuscular Hemoglobin 29.4 pg (27-33); Mean Corpuscular Volume 91.8 fl (82-101); Mean Platelet Volume 10.5 fL (7.4-10.4); Monocytes # 1.1 10^3/uL (0.2-0.9); Monocytes % 6.2 %; Neutrophils # 15.35 10^3/uL (1.8-7.7); Neutrophils % 83.2 %; Nucleated Red Blood Cells % 0 %; Platelet Count 614 10^3/cmm (157-399); Red Blood Count 4.86 10^6/uL (3.85-5.65); Red Cell Distribution Width 12.8 % (12.1-15.1); White Blood Count 18.45 10^3/uL (3.29-11.43)
[2023-07-15 13:47] LABS: Alanine Aminotransferase 18 U/L (0-41); Albumin Level 3.3 g/dL (3.5-5.2); Alkaline Phosphatase 109 U/L (40-130); Anion Gap 17.9 (5-19); Aspartate Amino Transferase 22 U/L (0-40); Blood Urea Nitrogen 33 mg/dL (8-23); Calcium 12.7 mg/dL (8.5-10.5); Carbon Dioxide 24 mmol/L (22-29); Chloride 98 mmol/L (98-107); Glucose 199 mg/dL (65-115); Osmolality Calculated 295 mOsm/kg (285-295); Potassium 3.9 mmol/L (3.5-5.1); Sodium 136 mmol/L (136-145); Total Bilirubin 0.4 mg/dL (0.15-1.2); Total Protein 7.3 g/dL (6.6-8.7)
--- NOTE | 2023-07-15 13:57 | XR_ITS ---
WS: [id number] EXAMINATION: XR chest 1V portable [id number] REASON FOR EXAM: dyspnea/cough COMPARISON: None available. ORDER DATE: 07/15/2023 1:57 PM TECHNIQUE: A single, portable frontal chest x-ray was obtained. X-RAY FINDINGS: There is diffuse opacity in the left upper lobe possibly with some lingular involvement.. No pleural effusions or pneumothorax. Cardiomediastinal silhouette is remarkable for numerous surgical clips and prior sternotomy change. N o evidence for pulmonary edema. Soft tissue and osseous structures are unremarkable. No tubes or lines are present. IMPRESSION: Consolidative patchy infiltrate in the left upper lobe and possibly lingula.
--- NOTE | 2023-07-15 14:55 | CT_ITS ---
WS: [id number] CT CHEST, ABDOMEN, AND PELVIS TECHNIQUE: Noncontrast CT of the chest, abdomen, and pelvis with coronal and sagittal reformatted veronica ges. CLINICAL INFORMATION: lung mass, possible malignancy COMPARISON: CT chest 02/17/2022 DLP: 993.[address] scans at [facility] use at least one of these dose optimization techniques: automated e xposure control; mA and/or kV adjustment per patient size (includes targeted exams where dose is matc hed to clinical indication); or iterative reconstruction. CT CHEST: Since the prior examination interval development of small LEFT pleural effusion with diffuse partial consolidation involving the LEFT upper lobe. Mild narrowing of the LEFT mainstem bronchus. Opacificat ion of the distal LEFT upper lobe bronchi. Enlarged suspicious lymph nodes involving the AP window me asuring up to 1.7 cm. LEFT suprahilar soft tissue mass measuring 5.5 x 5.2 cm suspicious for neoplasm with postobstructive pneumonia. Consider further evaluation with bronchoscopy. Stable nodule involving the thyroid isthmus. Normal caliber thoracic aorta. Aortic calcification. Jani rnotomy. Coronary calcification. Prior CABG. No axillary lymphadenopathy. Enlarged LEFT subpectoral l ymph nodes are new from previous suspicious for metastatic disease measuring up to 1.6 cm. Subsegment al atelectasis compatible with round atelectasis in the RIGHT lower lobe medially with a few air bron chograms is unchanged. Moderate chronic emphysematous changes. CT ABDOMEN AND PELVIS: Assessment for metastasis is limited without contrast. Suggestion of numerous low-attenuation lesions in the liver new from the prior study suspicious for m etastatic disease but indeterminate without IV contrast. Cholelithiasis. Normal spleen. Normal GE sheeba ction. Innumerable peritoneal implants new from previous suspicious for metastatic mesenteric nodules . Similar appearing nodularity extending into the pericolic gutters bilaterally suspicious for perito spring carcinomatosis. Retroperitoneal metastatic nodules measuring up to 2.5 cm multiple new perinephr ic nodules suspicious for metastatic disease. Lymphadenopathy in the luis hepatis. Urine distended bladder. Prostate brachytherapy seeds. Mild sigmoid constipation. Mild transverse col on constipation. Atrophy of the pancreas. Bilateral adrenal nodules appear new from the prior CT 02/17 suspicious for metastatic disease. Normal caliber abdominal aorta. Few tiny lytic lesions withi n the pelvis may be due to osteopenia versus metastatic disease. This can be further evaluated with b one scan or PET/CT. Tiny sclerotic lesion LEFT femoral neck. Tiny fat-containing RIGHT inguinal herni a. A few enlarged LEFT retroperitoneal and para-aortic lymph nodes. 8.8 x 4.7 cm lobulated low-attenuation lesion in the area of the appendix with peripheral calcificati on suspicious for mucocele of the appendix. No prior abdominal pelvis comparisons IMPRESSION: Assessment for metastasis is limited without contrast. 1. New LEFT suprahilar mass measuring 5.2 x 5.5 cm suspicious for neoplasm with associated narrowing of the LEFT upper lobe bronchi and postobstructive pneumonia in the LEFT upper lobe. 2. Large pathologic lymph nodes in the AP window measuring up to 1.7 cm. Enlarged pathologic subpect oral lymph nodes. 3. Small LEFT pleural effusion. 4. Stable round atelectasis RIGHT lower lobe. 5. Suspected diffuse liver metastasis although indeterminate without contrast. 6. Diffuse peritoneal soft tissue implants throughout the abdomen and pelvis compatible with periton eal carcinomatosis. Suspected bilateral adrenal metastasis. Perinephric and retroperitoneal nodules. 7. Suspected bony metastasis in the pelvis. This could be further evaluated bone scan or PET/CT. 8. 8.8 x 4.7 cm lobulated low-attenuation lesion in the area of the appendix with peripheral calcifi cation suspicious for mucocele of the appendix. No prior abdominal pelvis comparisons
--- NOTE | 2023-07-15 15:01 | P.HP_ITS ---
Providers/Chief Complaint Admitting Physician: Kaz Cruz MD Primary Care Provider: Marcelo De Santiago DO Chief Complaint: sent from [facility] History of Present Illness Garcia Lundy is a 78 year old male with past medical history of type 2 diabetes mellitus, hypertension, post CABG, significant personal and family history of malignancy with personal remote history of lung and prostate cancer was sent into the ER by endocrine office for hyperglycemia. As per the patient and the daughter at bedside he has been declining for last few months more so in last 2 weeks when his appetite has decreased, patient has stopped taking his medications, and lost around 15 pounds in last 1 month. Patient denies of having any cough, dysuria, headache. Daughter complains of patient being more foggy recently. On and off diarrhea. In the ER patient was found to have hypercalcemia started on IV fluids given 100 units of calcitonin and 750 of IV Levaquin. Chest x-ray was concerning for a left upper lobe mass. Review of Systems General: Reports: 10 or more systems reviewed and unremarkable except in HPI and below Const: Denies: fever(s), chills, body aches, change in appetite, change in weight, malaise, night sweats, diaphoresis, change in sleep pattern, daytime sleepiness or snoring Eyes: Denies: change in vision, blurry vision, photophobia, eye discomfort or eye discharge ENMT: Denies: throat pain, enlarged tonsils, hoarseness, mouth pain, oral sores, dry mouth, tinnitus, nasal congestion or post nasal drip Card: Denies: chest pain, palpitations, irregular heart rhythm, edema, swelling of feet/ankles, lightheadedness, syncope, pre-syncope, dyspnea on exertion, orthopnea, leg pain with exertion or acrocyanosis Resp: Denies: dyspnea, productive cough, non-productive cough, wheezing, stridor, pain on inspiration, change in phlegm color, hemoptysis or chest congestion GI: Denies: abdominal pain, nausea, vomiting, hematemesis, coffee ground emesis, dysphagia, heartburn, diarrhea, constipation, bloating, GI cramping, change in bowel habits, pain on defecation, hematochezia or melena : Denies: flank pain, difficulty urinating, dysuria, urinary frequency, urinary urgency, urinary hesitancy, urinary dribbling, difficulty starting urination, change in urine stream, nocturia or hematuria Musc: Denies: neck pain, back pain, extremity pain, joint pain, joint swelling, joint redness, joint stiffness or limited range of motion Neuro: Denies: headache(s), numbness in extremities, weakness in extremities, sensory changes, lack of coordination, difficulty walking, frequent falls, dizziness, vertigo, confusion, Slurred speech present, difficulty communicating thoughts or seizure-like activity Psych: Denies: anxiety, depression, mood swings, panic attacks, hopelessness or irritability Endo: Denies: polyuria, polydipsia, tired all the time, cold intolerance, excessive sweating, flushing or heat intolerance [place]/Lymph: Denies: easy bruising or easy bleeding All/Imm: Denies: tongue swelling, facial swelling or acute wheezing Medications/Allergies Home Medications Medication Instructions Recorded Confirmed Last Taken Type clopidogrel 75 mg tablet 75 mg PO DAILY 07/29/21 07/15/23 Unknown History multivitamin 1 tab PO DAILY 12/22/21 07/15/23 Unknown History albuterol sulfate 90 mcg/actuation 2 inh inhalation Q8H PRN shortness 12/27/21 07/15/23 Unknown Rx aerosol inhaler of breath or wheezing #8.5 grams alprazolam 0.5 mg tablet (Xanax) 0.5 mg PO BID PRN anxiety #7 tabs 12/27/21 07/15/23 Unknown Rx magnesium citrate (Citrate of 150 ml PO DAILY 03/09/22 07/15/23 Unknown History Magnesia oral) glucagon 1 mg solution for 1 mg SUBCUT Q20M PRN hypoglycemia 06/15/22 07/15/23 Unknown Rx injection (Glucagon Emergency Kit) #3 ea nitroglycerin 0.4 mg sublingual 0.4 mg sublingual Q5M PRN chest 09/02/22 07/15/23 Unknown Rx tablet pain #20 tabs Compression stockings #6 ea 02/16/23 07/15/23 Unknown Rx ascorbic acid (vitamin C) 500 mg 1 g PO DAILY 03/03/23 07/15/23 Unknown History tablet (Vitamin C) furosemide 20 mg tablet (Lasix) 20 mg PO QAM 03/03/23 07/15/23 Unknown History insulin glargine 100 unit/mL (3 16 unit SUBCUT DAILY 03/03/23 07/15/23 Unknown H istory mL) subcutaneous pen (Lantus Solostar U-100 Insulin) insulin aspart U-100 100 unit/mL 10 unit SUBCUT TID 07/15/23 07/15/23 Unknown History (3 mL) subcutaneous pen (Novolog FlexPen U-100 Insulin aspart) losartan 100 mg tablet 100 mg PO DAILY 07/15/23 07/15/23 Unknown History potassium chloride 20 mEq 20 meq PO DAILY 07/15/23 07/15/23 Unknown History tablet,extended release Allergies Allergy/AdvReac Type Severity Reaction Status Date / Time atorvastatin Allergy Unknown Unknown Verified 07/15/23 13:36 Penicillins Allergy Unknown Unknown Verified 07/15/23 13:36 niacin Allergy Unknown Verified 07/15/23 13:36 PFSH Acute PFSH: Medical History (Updated 07/15/23 @ 16:57 by Kaz Cruz MD) Atherosclerotic heart disease of [place] coronary artery with unspecified angina pectoris Carotid artery disease CHF (congestive heart failure) Chronic kidney disease, stage III (moderate) Coronary artery disease due to type 2 diabetes mellitus Coronary stent occlusion Essential hypertension Gastro-esophageal reflux disease without esophagitis History of left common carotid artery stent placement History of lung cancer History of prostate cancer Hyperlipidemia, unspecified Low back pain Malignant neoplasm of bronchus Type 2 diabetes mellitus Type 2 diabetes mellitus with diabetic nephropathy Surgical History History of colonoscopy Internal carotid artery stent present Left-sided S/P CABG x 5 Family History Brother CHF (congestive heart failure) Mother Lymphoma Sister Cancer Father No problems noted. Social History Smoking and tobacco status: former smoker Quit status (tobacco): has quit using tobacco Year quit tobacco: 1984 Former quit date comment: Smoked 4.5 pack per day x 25 years Alcohol intake: former Substance/Drug Use: never Vitals/I&O/Wt Last Vital Signs Temp 97.7 F 07/15/23 11:24 Pulse 78 07/15/23 14:00 Resp 18 07/15/23 13:25 BP 147/70 07/15/23 14:00 Pulse Ox 93 07/15/23 14:00 O2 Del Method Room Air 07/15/23 14:00 O2 Flow Rate 2 07/15/23 13:25 07/15/23 07/15/23 07/15/23 06:59 14:59 22:59 Intake Total 100 / 100 Balance 100 / 100 Weight last 48 hrs Weight 79.379 kg Physical Exam Narrative: General: No acute distress, AO x3 HEENT: PERRLA, pupils bilaterally equal and reactive Chest: Normal vesicular breath sounds, no added sounds, equal good air entry bilaterally CVS: S1-S2 regular, no murmurs, no tachycardia, no gallops, no rubs Abdomen: Soft, nontender, no organomegaly, bowel sounds present Neuro: No focal deficits, no facial deformity, AO x3, power 5/5 in all limbs Data 07/15/23 13:22 07/15/23 13:22 A&P Assessment and plan (1) Hypercalcemia: (2) Mass of upper lobe of left lung: (3) Postobstructive pneumonia: (4) Metastasis to liver: (5) Essential hypertension: (6) Chronic kidney disease, stage III (moderate): (7) Coronary artery disease due to type 2 diabetes mellitus: Plan 72 gentleman admitted for hypercalcemia found to have a left upper lobe mass. Hypercalcemia: Moderate symptomatic. Most likely in setting of malignancy. Check PTH, PTH related protein, vitamin D levels, ionized calcium, urine calcium levels. Start on IV hydration with normal saline at 100 cc/h. Patient given zoledronic acid and calcitonin in the ER. For now as patient already received Zolendronic Continue calcitonin 300 units which is 4 units/kg body weight every 12 hourly for next 48 hrs. Continue to monitor calcium daily for now. Left lung mass: Most likely malignancy. Get CT chest abdomen pelvis without contrast for further evaluation of the mass. Patient states he has had multiple cancers in the past and does not want to go through the process again. He is okay with the biopsy so that he and his family can understand the prognosis and to make sure it does not [employer] for the family to follow-up later. We will consult pulmonology for possible bronchoscopy. Pulmicort twice daily, DuoNeb every 6 hours. Hypertension: Goal pressure less than 140/90 MAG. Continue with home dose of losartan. Will uptitrate as for goal blood pressures. Type 2 diabetes mellitus: Check A1c. Continue home dose of Humalog 10 units premeals, 16 units of Lantus nightly along with correctional low-dose insulin sliding scale. CAD/post CABG: Hold off on Plavix for now as patient might need bronchoscopy biopsy. Check A1c, lipid panel. CODE STATUS: DNR/DNI. Diabetic diet. Protonix for PUD prophylaxis Heparin 5000 every 12 hourly for DVT prophylaxis. Discharge plan: Daughter states patient's needs have gradually increased and she is not able to take care of the patient anymore at home. She would like the patient to transition to SNF as possible. Patient is agreeable. Case management alerted. 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
[2023-07-15 15:31] LABS: Lactic Sepsis W/Reflex 1.3 mmol/L (0.5-2.2)
[2023-07-15 16:07] LABS: Add Urine Microscopic? NO; Charge for UA Resulting for Rev
[2023-07-15] MEDS: levofloxacin-dextrose 5 % 750 MG/150 ML PREMIX 100 MG IV (16:18)
[2023-07-15 16:19] LABS: Calcium 12.7 mg/dL (8.5-10.5)
[2023-07-15] MEDS: heparin 5,000 unit/mL INJ 1 mL 5000 UNIT SUBCUT (16:19)
[2023-07-15] MEDS: sodium chloride 0.9% 1,000 ML 100 ML IV ×2 (16:19→20:47)
[2023-07-15] MEDS: famotidine 20 mg Tablet PO (16:21)
[2023-07-15 16:25] LABS: Parathyroid Hormone 25.9 pg/mL (15-65)
[2023-07-15 16:46] LABS: Glucose Point of Care 217 mg/dL (70-110)
[2023-07-15 16:49] LABS: Thyroid Stimulating Hormone 3.45 uIU/mL (0.27-4.20)
[2023-07-15 17:01] LABS: Iron 29 ug/dL (59-158); Percent Saturation 15.4 % (20-50); Total Iron Binding Capacity 188 mcg/dl; Unsaturated Iron Binding 159 ug/dL (112-347)
[2023-07-15 17:24] LABS: Bilirubin Urine Neg (Negative); Blood Urine Neg (Negative); Glucose Urine UA Norm (Normal); Ketones Urine Negative (Negative); Leukocyte Esterase Urine Negative (Negative); Nitrate Urine Negative (Negative); Protein Urine Neg (Negative); Urine Appearance Clear (CLEAR); Urine Color Yellow (Yellow); Urobilinogen Urine Norm (Negative); pH Urine 5 (5-7)
[2023-07-15] MEDS: insulin lispro 100 unit/1 mL 10 UNIT SUBCUT (17:44)
[2023-07-15 17:45] LABS: Vitamin B12 > 2000 pg/mL (232-1245)
[2023-07-15] MEDS: insulin lispro 100 unit/1 mL SUBCUT (17:45)
[2023-07-15 17:48] LABS: 25 Hydroxy Vitamin D > 120 ng/mL (30-100)
[2023-07-15] MEDS: calcitonin,salmon 200 unit/mL SDV 2mL 300 UNIT SUBCUT (17:57)
[2023-07-15 18:08] LABS: Calcium Urine Random 24.9 mg/dL
[2023-07-15 18:10] LABS: Potassium, Radom Urine 35 mmol/L; Urine Creatinine 96 mg/dL (39-259); Urine Random Sodium 25 mmol/L
[2023-07-15 18:11] LABS: Urine Random Chloride 18 mmol/L
[2023-07-15] MEDS: metoprolol tartrate 25 mg Tablet PO (20:45)
[2023-07-15 21:07] LABS: Glucose Point of Care 115 mg/dL (70-110)
[2023-07-16] VITALS (7 sets, daily range): BP systolic 130–153; BP diastolic 72–80; PULSE 80–99; RESP 16–19; TEMP 36.3–36.6; O2SAT 90–96; BMI 26.6
[2023-07-16] MEDS: heparin 5,000 unit/mL INJ 1 mL 5000 UNIT SUBCUT ×2 (05:12→15:51)
[2023-07-16 05:14] LABS: Basophils # 0.1 10^3/uL (0.0-0.1); Basophils % 0.4 %; Eosinophils # 0.1 10^3/uL (0.0-0.8); Eosinophils % 0.4 %; Hematocrit 39.2 % (37-53); Lymphocytes # 1.2 10^3/uL (0.8-4.8); Lymphocytes % 7.4 %; Mean Corpuscular HGB Conc 31.9 g/dL (30-55); Mean Corpuscular Hemoglobin 29.3 pg (27-33); Mean Platelet Volume 10.7 fL (7.4-10.4); Monocytes % 5.7 %; Neutrophils # 13.93 10^3/uL (1.8-7.7); Neutrophils % 84.1 %; Nucleated Red Blood Cells % 0 %; Platelet Count 485 10^3/cmm (157-399); Red Blood Count 4.26 10^6/uL (3.85-5.65); Red Cell Distribution Width 12.9 % (12.1-15.1); White Blood Count 16.59 10^3/uL (3.29-11.43)
[2023-07-16 05:38] LABS: Alanine Aminotransferase 13 U/L (0-41); Albumin Level 2.5 g/dL (3.5-5.2); Alkaline Phosphatase 87 U/L (40-130); Anion Gap 16.7 (5-19); Aspartate Amino Transferase 15 U/L (0-40); Blood Urea Nitrogen 32 mg/dL (8-23); Calcium 11.1 mg/dL (8.5-10.5); Carbon Dioxide 21 mmol/L (22-29); Chloride 108 mmol/L (98-107); Globulin 3.2 g/dL (1.3-4.6); Glucose 146 mg/dL (65-115); Magnesium 1.8 mg/dL (1.7-2.3); Osmolality Calculated 304 mOsm/kg (285-295); Phosphorus 2.2 mg/dL (2.5-4.5); Potassium 3.7 mmol/L (3.5-5.1); Sodium 142 mmol/L (136-145); Total Bilirubin 0.3 mg/dL (0.15-1.2); Total Protein 5.7 g/dL (6.6-8.7)
[2023-07-16 05:51] LABS: Folate Level 18.8 ng/mL (4.5-32.2)
[2023-07-16 06:47] LABS: Glucose Point of Care 167 mg/dL (70-110)
[2023-07-16] MEDS: sodium chloride 0.9% 1,000 ML 100 ML IV (07:25)
[2023-07-16] MEDS: ascorbic acid 500 mg Tablet 1000 MG PO (08:36)
[2023-07-16] MEDS: losartan 50 mg Tablet 100 MG PO (08:36)
[2023-07-16] MEDS: famotidine 20 mg Tablet PO ×2 (08:36→18:13)
[2023-07-16] MEDS: multivitamin therapeutic Tablet 1 TAB PO (08:36)
[2023-07-16] MEDS: insulin lispro 100 unit/1 mL 10 UNIT SUBCUT (08:37)
--- NOTE | 2023-07-16 08:57 | PC.CHAP ---
Pastoral Care Encounter/Spiritual Assessment Type of Contact [] Declined door operator visit [] Patient/Family/Request visit [] Outpatient visit [] Follow-up visit [] Physician referral [] Code/Alert [x] Routine visit [] Staff referral [] Actively dying [] Patient sleeping [] Family support [] [] Out of room [] Palliative care [] [] Receiving care in room [] Pre-surgical visit [] Trauma [] Long length of stay [] ICU visit [] Other: Relational/Emotional Strength [x] Patient feels connected with others/family/visitors/staff [] Distress [] Loneliness/isolation [] Abandonment Spirituality of Patient [] Person of [place] [] Attends Religious of their [place] [] Believes in Prayer [] Reads Bible or Zoroastrian materials [x] There are Spiritual issues to be addressed [place] Interventions [] Prayer [x] Active listening [] Non-anxious presence [] Spiritual/emotional support [] Crisis/trauma care [] Spiritual counseling [] Bereavement support [] Provided bereavement packet [] Provided Bible/devotional materials [] Provided toy/stuffed animal, coloring book to patient or family member [] Provided Communion [] Anointing/[place] [] Salvation [x] Completed spiritual assessment [] Other: Impact on Illness or Injury [] Angry [] Fearful [] Anxious [] Often cries [] Exhaustion [] Unable to work [] Unable to attend orthodox [] Unable to walk/stand [] Unable to read [] Unable to drive [] Unable to eat/drink [] Unable to sleep [] Unable to be with family [] Patient intubated [] Other: Summary Time spent with patient 5 min
[2023-07-16] MEDS: insulin lispro 100 unit/1 mL SUBCUT (08:58)
[2023-07-16] MEDS: insulin glargine 100 units/1 mL 16 UNIT SUBCUT (08:59)
[2023-07-16] MEDS: calcitonin,salmon 200 unit/mL SDV 2mL 300 UNIT SUBCUT ×2 (10:28→18:57)
[2023-07-16] MEDS: metoprolol tartrate 25 mg Tablet PO ×2 (10:29→21:05)
[2023-07-16 11:59] LABS: Glucose Point of Care 112 mg/dL (70-110)
--- NOTE | 2023-07-16 14:36 | PM.PN ---
Subjective Subjective: No acute events overnight. Patient denies any nausea, pain, headache. States he is feeling slightly better. Patient is appears confused today. Complaining of being uncomfortable in bed. He thought that he would be getting biopsy done today though he was informed that biopsy would most likely happen once he has been seen by the biological sciences instructor and it would most likely happen early next week. Patient verbalized disappointment about the delay in biopsy but he would like to go ahead with biopsy because his family wants him to have the same. Blood work today shows continued leukocytosis, stable hemoglobin, BMP showing sodium of 142, mild metabolic acidosis, creatinine stable at 1.5, calcium at 11.1 improving from 12.7 yesterday, phosphorus of 2.2, mildly elevated procalcitonin, PTH to be normal. Vitals/I&O/Wt Last Vital Signs Temp 97.7 F 07/16/23 12:00 Pulse 88 07/16/23 12:00 Resp 16 07/16/23 12:00 BP 153/77 07/16/23 12:00 Pulse Ox 90 07/16/23 12:00 O2 Del Method Room Air 07/16/23 12:00 O2 Flow Rate 2 07/16/23 09:31 07/15/23 07/16/23 07/16/23 22:59 06:59 14:59 Intake Total 1716.667 / 8331.196 2312 / 2816.667 120 / 120 Output Total 400 / 400 300 / 700 300 / 300 Balance 1316.667 / 1416.667 700 / 2116.667 -180 / -180 Weight last 48 hrs Weight 79.379 kg Weight 79.379 kg Physical Exam Narrative: General: No acute distress, AO x2-3, confused intermittently HEENT: PERRLA, pupils bilaterally equal and reactive Chest: Bilateral bronchial breath sounds all over lung koo with coarse crackles present and left upper lobe CVS: S1-S2 regular, no murmurs, no tachycardia, no gallops, no rubs Abdomen: Soft, nontender, no organomegaly, bowel sounds present Neuro: No focal deficits, no facial deformity, AO x3, power 5/5 in all limbs Data 07/16/23 04:46 07/16/23 04:46 Micro: Microbiology 07/15/23 14:53 Blood Culture - Preliminary Blood SPECIMEN COLLECTED 07/15/23 14:48 Blood Culture - Preliminary Blood SPECIMEN COLLECTED A&P Assessment and plan (1) Hypercalcemia: (2) Mass of upper lobe of left lung: (3) Postobstructive pneumonia: (4) Metastasis to liver: (5) Essential hypertension: (6) Chronic kidney disease, stage III (moderate): (7) Coronary artery disease due to type 2 diabetes mellitus: (8) Hypervitaminosis D: (9) Goals of care, counseling/discussion: (10) Physical deconditioning: (11) Decubitus ulcer: Plan 72 gentleman admitted for hypercalcemia found to have a left upper lobe mass. Hypercalcemia: Moderate symptomatic. Most likely in setting of malignancy. PTH normal, vitamin D levels elevated to more than 120, ionized calcium is elevated, urine calcium normal. PTH RP awaited. Continue normal saline at 50 cc/h given history of congestive heart failure in the past Calcium level mildly improved to 11.7 today. Repeat calcium and ionized calcium levels in AM. For now as patient already received Zolendronic Continue calcitonin 300 units which is 4 units/kg body weight every 12 hourly for next 48 hrs. Left lung mass: Most likely malignancy. Appreciate CT chest abdomen pelvis without contrast. Consistent with significant lung mass with hilar lymphadenopathy, peritoneal carcinomatosis, diffuse possible liver metastasis, adrenal metastasis and possible bony metastasis. Patient states he has had multiple cancers in the past and does not want to go through the process again. He is okay with the biopsy so that he and his family can understand the prognosis and to make sure it is not genetic for the family to follow-up later. Pulmonary consulted for possible bronchoscopy and biopsy. Pulmicort twice daily, DuoNeb every 6 hours. Postobstructive pneumonia: Patient is afebrile but has persistent leukocytosis. For now empirically start patient on IV meropenem. Check MRSA swab. If positive will add vancomycin. Hypertension: Goal pressure less than 140/90 mmhg. Continue with home dose of losartan. Will uptitrate as for goal blood pressures. Type 2 diabetes mellitus: A1c- 6.9. Continue home dose of Humalog 10 units premeals, 16 units of Lantus nightly along with correctional low-dose insulin sliding scale. CAD/post CABG: Hold off on Plavix for now as patient might need bronchoscopy biopsy. Appreciate lipid panel. History of congestive heart failure: Diastolic type. Euvolemic. Last echocardiogram in 2020 shows EF of 55%, grade 2 diastolic dysfunction with dilated LA. For now continue to monitor fluid status. CODE STATUS: DNR/DNI. Diabetic diet. Protonix for PUD prophylaxis Heparin 5000 every 12 hourly for DVT prophylaxis. Discharge plan: Daughter states patient's needs have gradually increased and she is not able to take care of the patient anymore at home. She would like the patient to transition to SNF as possible. Patient is agreeable. Case management alerted. Attestations Medical Necessity Statement*: Requires further hospitalization for management of hypercalcemia most likely related to malignancy, hypervitaminosis D, postobstructive pneumonia while safe discharge is sought. 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
[2023-07-16] MEDS: morphine 4 mg/mL SDV 1 mL 1 MG IVP (15:50)
[2023-07-16] MEDS: meropenem 1,000 MG in sodium chloride 0.9% (plus) 50 ML 100 MG IV (15:51)
[2023-07-16 16:01] LABS: Creatine Phosphokinase 51 U/L (39-308)
[2023-07-16 16:36] LABS: Glucose Point of Care 109 mg/dL (70-110)
--- NOTE | 2023-07-16 19:29 | PM.CONSULT ---
Providers/Reason For Consult Consulting Physician/Specialty*: Norbert Diamond MD, FCCP/pulmonary critical care Reason for Consult*: Suspected lung lesions-requiring tissue diagnosis Requesting Physician: Kaz Cruz MD Attending Physician: Kaz Cruz MD Primary Care Provider: Marcelo De Santiago DO History of Present Illness History of Present Illness Garcia Lundy is a 78 year old male with past medical history of type 2 diabetes mellitus, hypertension, post CABG, significant personal and family history of malignancy with personal remote history of lung and prostate cancer was sent into the ER by endocrine office for hypercalcemia. As per the patient and the daughter at bedside he has been declining for last few months more so in last 2 weeks when his appetite has decreased, patient has stopped taking his medications, and lost around 15 pounds in last 1 month.? Patient denies of having any cough, dysuria, headache.? Daughter complains of patient being more foggy recently.? On and off diarrhea. For hypercalcemia, in the ER patient was found to have hypercalcemia started on IV fluids given 100 units of calcitonin and 750 of IV Levaquin. Chest x-ray was concerning for a left upper lobe mass. CT chest abdomen pelvis 07/15/2023 showed new left suprahilar mass measuring 5.2 x 5.5 cm suspicious for neoplasm with associated narrowing of left upper lobe bronchus and postobstructive pneumonia in left upper lobe. Large pathology lymph nodes in AP window measuring 1.7 cm enlarged pathologic subpectoral lymph nodes. Suspected diffuse liver metastasis. Diffuse peritoneal soft tissue implants throughout the abdomen pelvis compatible with peritoneal carcinomatosis. Suspected bilateral adrenal metastasis. Suspected bony metastasis in the pelvis. 8.8 x 4.7 lobulated low-attenuation lesion in area of appendix with peripheral calcifications suspicious for mucocele of appendix. With CT chest findings suspicious for malignancy-hospitalist had a discussion with patient and family-they wish to proceed for biopsy to know the diagnosis. Pulmonary consult requested for evaluation for bronchoscopy guided biopsies I have seen patient and his daughter at bedside Patient tells me that he has history of smoking for more than 20 years-diagnosed with lung cancer in 1979 for which he received chemotherapy-he quit smoking at that point. He also gives history of prostate cancer diagnosed in 2002. He is okay with the biopsy so that he and his family can understand the prognosis and to make sure it is not genetic for the family to follow-up later. Review of Systems General: Reports: 10 or more systems reviewed and unremarkable except in HPI and below Medications/Allergies Home Medications Medication Instructions Recorded Confirmed Last Taken Type clopidogrel 75 mg tablet 75 mg PO DAILY 07/29/21 07/15/23 Unknown History multivitamin 1 tab PO DAILY 12/22/21 07/15/23 Unknown History albuterol sulfate 90 mcg/actuation 2 inh inhalation Q8H PRN shortness 12/27/21 07/15/23 Unknown Rx aerosol inhaler of breath or wheezing #8.5 grams alprazolam 0.5 mg tablet (Xanax) 0.5 mg PO BID PRN anxiety #7 tabs 12/27/21 07/15/23 Unknown Rx magnesium citrate (Citrate of 150 ml PO DAILY 03/09/22 07/15/23 Unknown History Magnesia oral) glucagon 1 mg solution for 1 mg SUBCUT Q20M PRN hypoglycemia 06/15/22 07/15/23 Unknown Rx injection (Glucagon Emergency Kit) #3 ea nitroglycerin 0.4 mg sublingual 0.4 mg sublingual Q5M PRN chest 09/02/22 07/15/23 Unknown Rx tablet pain #20 tabs Compression stockings #6 ea 02/16/23 07/15/23 Unknown Rx ascorbic acid (vitamin C) 500 mg 1 g PO DAILY 03/03/23 07/15/23 Unknown History tablet (Vitamin C) furosemide 20 mg tablet (Lasix) 20 mg PO QAM 03/03/23 07/15/23 Unknown History insulin glargine 100 unit/mL (3 16 unit SUBCUT DAILY 03/03/23 07/15/23 Unknown History mL) subcutaneous pen (Lantus Solostar U-100 Insulin) insulin aspart U-100 100 unit/mL 10 unit SUBCUT TID 07/15/23 07/15/23 Unknown History (3 mL) subcutaneous pen (Novolog FlexPen U-100 Insulin aspart) losartan 100 mg tablet 100 mg PO DAILY 07/15/23 07/15/23 Unknown History potassium chloride 20 mEq 20 meq PO DAILY 07/15/23 07/15/23 Unknown History tablet,extended release Allergies Allergy/AdvReac Type Severity Reaction Status Date / Time atorvastatin Allergy Unknown Unknown Verified 07/15/23 13:36 Penicillins Allergy Unknown Unknown Verified 07/15/23 13:36 niacin Allergy Unknown Verified 07/15/23 13:36 Current Medications Generic Name Dose Route Start Last Admin Trade Name Freq PRN Reason Stop Dose Admin Calcitonin [place] 300 unit 07/15/23 18:00 07/16/23 18:57 Calcitonin,[place] 200 Unit/Ml Sdv 2ml SUBCUT 300 unit BID GUSTAVO Administration Famotidine 20 mg 07/15/23 18:00 07/16/23 18:13 Famotidine 20 Mg Tablet PO 20 mg BID GUSTAVO Administration Heparin Sodium (Porcine) 5,000 unit 07/15/23 16:30 07/16/23 15:51 Heparin 5,000 Unit/Ml Inj 1 Ml SUBCUT 5,000 unit Q12H GUSTAVO Administration Sodium Chloride 1,000 mls @ 50 mls/hr 07/15/23 15:24 07/16/23 17:50 Sodium Chloride 0.9% IV Infused .Q20H GUSTAVO Infusion Meropenem 1,000 mg/ Sodium 50 mls @ 100 mls/hr 07/16/23 15:30 07/16/23 16:52 Chloride IV Infused Q12H GUSTAVO Infusion Protocol Insulin Glargine 16 unit 07/16/23 09:00 07/16/23 08:59 Insulin Glargine 100 Units/1 Ml SUBCUT 16 unit DAILY GUSTAVO Administration Insulin Human Lispro 10 unit 07/15/23 18:00 07/16/23 17:51 Insulin Lispro 100 Unit/1 Ml SUBCUT Not Given TIDWM GUSTAVO Insulin Human Lispro 0 unit 07/15/23 18:00 07/16/23 17:28 Insulin Lispro 100 Unit/1 Ml SUBCUT Not Given [facility] Protocol Losartan Potassium 100 mg 07/16/23 09:00 07/16/23 08:36 Losartan 50 Mg Tablet PO 100 mg DAILY GUSTAVO Administration Metoprolol Tartrate 25 mg 07/15/23 21:00 07/16/23 10:29 Metoprolol Tartrate 25 Mg Tablet PO 25 mg BID@0900,2100 GUSTAVO Administration Morphine Sulfate 1 mg 07/16/23 15:13 07/16/23 15:50 Morphine 4 Mg/Ml Sdv 1 Ml IVP 1 mg Q4H PRN Administration SEVERE PAIN PFSH Acute PFSH: Medical History Atherosclerotic heart disease of [place] coronary artery with unspecified angina pectoris Carotid artery disease CHF (congestive heart failure) Chronic kidney disease, stage III (moderate) Coronary artery disease due to type 2 diabetes mellitus Coronary stent occlusion Essential hypertension Gastro-esophageal reflux disease without esophagitis History of left common carotid artery stent placement History of lung cancer History of prostate cancer Hyperlipidemia, unspecified Low back pain Malignant neoplasm of bronchus Type 2 diabetes mellitus Type 2 diabetes mellitus with diabetic nephropathy Surgical History History of colonoscopy Internal carotid artery stent present Left-sided S/P CABG x 5 Family History Brother CHF (congestive heart failure) Mother Lymphoma Sister Cancer Father No problems noted. Social History Smoking and tobacco status: former smoker Quit status (tobacco): has quit using tobacco Year quit tobacco: 1984 Former quit date comment: Smoked 4.5 pack per day x 25 years Alcohol intake: former Substance/Drug Use: never Vitals/I&O/Wt Last Vital Signs Temp 97.4 F L 07/16/23 15:53 Pulse 80 07/16/23 15:53 Resp 19 H 07/16/23 15:53 BP 152/77 07/16/23 15:53 Pulse Ox 90 07/16/23 15:53 O2 Del Method Room Air 07/16/23 15:53 O2 Flow Rate 2 07/16/23 09:31 07/16/23 07/16/23 07/16/23 06:59 14:59 22:59 Intake Total 1000 / 2816.667 120 / 120 1250 / 1370 Output Total 300 / 700 300 / 300 400 / 700 Balance 700 / 2116.667 -180 / -180 850 / 670 Weight last 48 hrs Weight 175 lb Weight 175 lb Physical Exam Narrative: General: alert, NAD-daughter reported he is confused at times HEENT: conj clear, EOMI, PERRL, mmm, Neck: supple, no meningismus Heme: no cervical LAP Respiratory: Inspection: No visible deformity of the chest wall Palpation: Trachea is mildly deviated to the right, bilateral symmetric expansion Percussion: Bilateral tympanic percussion note both anterior and posteriorly Auscultation: Bilateral clear to auscultation both anterior and posteriorly, no crackles wheezing or rhonchi except the left upper lobe has some crackles Cardiovascular: rrr, nl s1s2, no mrg Abdomen: soft, nt, nd, no r/g, bs+ Extremities: pulses +, no edema, no c/c : no CVA tenderness Skin: intact, no rash MSK: no back or neck pain Neurologic: grossly intact Data 07/16/23 04:46 07/16/23 04:46 Other Labs: Laboratory Results WBC 16.59 10^3/uL (3.29-11.43) H 07/16/23 04:46 RBC 4.26 10^6/uL (3.85-5.65) 07/16/23 04:46 Hgb 12.50 g/dL (11.27-16.99) 07/16/23 04:46 Hct 39.2 % (37-53) 07/16/23 04:46 MCV 92.0 fl (82-101) 07/16/23 04:46 MCH 29.3 pg (27-33) 07/16/23 04:46 MCHC 31.9 g/dL (30-55) 07/16/23 04:46 RDW 12.9 % (12.1-15.1) 07/16/23 04:46 Plt Count 485 10^3/cmm (157-399) H 07/16/23 04:46 MPV 10.7 fL (7.4-10.4) H 07/16/23 04:46 Neut % (Auto) 84.1 % 07/16/23 04:46 Lymph % (Auto) 7.4 % 07/16/23 04:46 [place] % (Auto) 5.7 % 07/16/23 04:46 Eos % (Auto) 0.4 % 07/16/23 04:46 Baso % (Auto) 0.4 % 07/16/23 04:46 Neut # (Auto) 13.93 10^3/uL (1.8-7.7) H 07/16/23 04:46 Lymph # (Auto) 1.2 10^3/uL (0.8-4.8) 07/16/23 04:46 [place] # (Auto) 1.0 10^3/uL (0.2-0.9) H 07/16/23 04:46 Eos # (Auto) 0.1 10^3/uL (0.0-0.8) 07/16/23 04:46 Baso # (Auto) 0.1 10^3/uL (0.0-0.1) 07/16/23 04:46 Nucleated RBC % (auto) 0 % 07/16/23 04:46 Nucleated RBCs # 0.0 /100WBC 07/16/23 04:46 Sodium 142 mmol/L (136-145) 07/16/23 04:46 Potassium 3.7 mmol/L (3.5-5.1) 07/16/23 04:46 Chloride 108 mmol/L (98-107) H 07/16/23 04:46 Carbon Dioxide 21 mmol/L (22-29) L 07/16/23 04:46 Anion Gap 16.7 (5-19) 07/16/23 04:46 BUN 32 mg/dL (8-23) H 07/16/23 04:46 Creatinine 1.5 mg/dL (0.7-1.2) H 07/16/23 04:46 GFR Calculation Not Reportable 07/16/23 04:46 Glucose 146 mg/dL (65-115) H 07/16/23 04:46 POC Glucose 109 mg/dL (70-110) 07/16/23 16:23 Calculated Osmolality 304 mOsm/kg (285-295) H 07/16/23 04:46 Lactic Acid 1.3 mmol/L (0.5-2.2) 07/15/23 14:48 Calcium 11.1 mg/dL (8.5-10.5) H 07/16/23 04:46 Ionized Calcium [place] 1.7 mmol/L (1.1-1.4) H 07/15/23 13:22 Phosphorus 2.2 mg/dL (2.5-4.5) L 07/16/23 04:46 Magnesium 1.8 mg/dL (1.7-2.3) 07/16/23 04:46 Iron 29 ug/dL (59-158) L 07/15/23 13:22 TIBC 188 mcg/dl 07/15/23 13:22 % Saturation 15.4 % (20-50) L 07/15/23 13:22 Unsat Iron Binding 159 ug/dL (112-347) 07/15/23 13:22 Total Bilirubin 0.3 mg/dL (0.15-1.2) 07/16/23 04:46 AST 15 U/L (0-40) 07/16/23 04:46 ALT 13 U/L (0-41) 07/16/23 04:46 Alkaline Phosphatase 87 U/L (40-130) 07/16/23 04:46 Creatine Kinase 51 U/L (39-308) 07/16/23 04:46 Total Protein 5.7 g/dL (6.6-8.7) L D 07/16/23 04:46 Albumin 2.5 g/dL (3.5-5.2) L 07/16/23 04:46 Globulin 3.2 g/dL (1.3-4.6) 07/16/23 04:46 Vitamin B12 > 2000 pg/mL (232-1245) H 07/15/23 13:22 25-OH Vitamin D Total > 120 ng/mL (30-100) H* 07/15/23 13:22 Folate 18.8 ng/mL (4.5-32.2) 07/16/23 04:46 Procalcitonin 1.20 ng/mL (0-0.5) H 07/15/23 13:22 TSH 3.45 uIU/mL (0.27-4.20) 07/15/23 13:22 PTH Intact 25.9 pg/mL (15-65) 07/15/23 13:22 Calcium (PTH Intact) 12.7 mg/dL (8.5-10.5) H 07/15/23 13:22 Urine Color Yellow (Yellow) 07/15/23 16:00 Urine Appearance Clear (CLEAR) 07/15/23 16:00 Urine pH 5 (5-7) 07/15/23 16:00 Ur Specific [place] 1.020 (1.005-1.030) 07/15/23 16:00 Urine Protein Neg (Negative) 07/15/23 16:00 Urine Glucose (UA) Norm (Normal) 07/15/23 16:00 Urine Ketones Negative (Negative) 07/15/23 16:00 Urine Blood Neg (Negative) 07/15/23 16:00 Urine Nitrate Negative (Negative) 07/15/23 16:00 Urine Bilirubin Neg (Negative) 07/15/23 16:00 Urine Urobilinogen Norm mg/dL (Negative) 07/15/23 16:00 Ur Leukocyte Esterase Negative (Negative) 07/15/23 16:00 Ur Random Sodium 25 mmol/L 07/15/23 16:00 Ur Random Potassium 35 mmol/L 07/15/23 16:00 Ur Random Chloride 18 mmol/L 07/15/23 16:00 Ur Random Calcium 24.9 mg/dL 07/15/23 16:00 Urine Creatinine 96 mg/dL (39-259) 07/15/23 16:00 Micro: Microbiology 07/15/23 14:53 Blood Culture - Preliminary Blood NEGATIVE TO DATE 07/15/23 14:48 Blood Culture - Preliminary Blood NEGATIVE TO DATE A&P Assessment and plan (1) Mass of upper lobe of left lung: Chest x-ray was concerning for a left upper lobe mass. CT chest abdomen pelvis 07/15/2023 showed new left suprahilar mass measuring 5.2 x 5.5 cm suspicious for neoplasm with associated narrowing of left upper lobe bronchus and postobstructive pneumonia in left upper lobe. Large pathology lymph nodes in AP window measuring 1.7 cm enlarged pathologic subpectoral lymph nodes. Suspected diffuse liver metastasis. Diffuse peritoneal soft tissue implants throughout the abdomen pelvis compatible with peritoneal carcinomatosis. Suspected bilateral adrenal metastasis. Suspected bony metastasis in the pelvis. 8.8 x 4.7 lobulated low-attenuation lesion in area of appendix with peripheral calcifications suspicious for mucocele of appendix. Patient tells me that he has history of smoking for more than 20 years-diagnosed with lung cancer in 1979 for which he received chemotherapy-he quit smoking at that point. He also gives history of prostate cancer diagnosed in 2002. Patient does not wish to proceed with cancer related treatments but he wanted biopsy so that he and his family can understand the prognosis and to make sure it is not genetic for the family to follow-up later. I have informed patient and his daughter. I will schedule biopsies as outpatient.current wait time to schedule for biopsy as outpatient is at least 1 to 2 weeks and most likely the procedure will be done 08/03/2023. Patient was on Plavix for previous history of CABG 2006 and stent several years ago-Plavix was held yesterday (2) Goals of care, counseling/discussion: Patient does not wish to proceed with chemotherapy but wanted to do biopsy and now the diagnosis DNR/DNI (3) Hypercalcemia: Likely secondary to malignancy; however his vitamin D is> 120, PTH level normal, ionized calcium elevated, PTH RP pending Currently he is receiving IV fluids, calcitonin, zoledronic acid He has intermittent confusion Consult Attestations Medical Necessity Statement: Currently being managed for hypercalcemia Time Spent in Patient Care: Greater than 35 minutes (>than 50% of time spent in counselling and/or direct pt care on unit). Coding Level of Care Code 78325 Diagnoses Mass of upper lobe of left lung R91.8 Goals of care, counseling/discussion Z71.89 Hypercalcemia E83.52 Time Spent (min) 52
[2023-07-16 21:13] LABS: Glucose Point of Care 108 mg/dL (70-110)
[2023-07-17] VITALS (11 sets, daily range): BP systolic 115–138; BP diastolic 65–71; PULSE 73–94; RESP 17–20; TEMP 36.3–36.8; O2SAT 90–94
[2023-07-17] MEDS: sodium chloride 0.9% 1,000 ML 50 ML IV (01:28)
[2023-07-17] MEDS: meropenem 1,000 MG in sodium chloride 0.9% (plus) 50 ML 100 MG IV ×2 (03:02→15:03)
[2023-07-17 05:02] LABS: Ionized Calcium 1.4 mmol/L (1.1-1.4)
[2023-07-17] MEDS: heparin 5,000 unit/mL INJ 1 mL 5000 UNIT SUBCUT ×2 (05:13→16:26)
[2023-07-17] MEDS: ondansetron 2 mg/ML SDV 2 mL 4 MG IVP (05:19)
[2023-07-17 05:51] LABS: Basophils # 0.1 10^3/uL (0.0-0.1); Basophils % 0.4 %; Eosinophils # 0.1 10^3/uL (0.0-0.8); Eosinophils % 0.6 %; Hematocrit 38.5 % (37-53); Lymphocytes # 1.2 10^3/uL (0.8-4.8); Lymphocytes % 8.4 %; Mean Corpuscular HGB Conc 32.2 g/dL (30-55); Mean Corpuscular Hemoglobin 29.8 pg (27-33); Mean Corpuscular Volume 92.5 fl (82-101); Mean Platelet Volume 10.7 fL (7.4-10.4); Monocytes # 0.9 10^3/uL (0.2-0.9); Monocytes % 6.2 %; Neutrophils % 81.7 %; Nucleated Red Blood Cells % 0 %; Platelet Count 508 10^3/cmm (157-399); Red Blood Count 4.16 10^6/uL (3.85-5.65); Red Cell Distribution Width 13.1 % (12.1-15.1); White Blood Count 14.33 10^3/uL (3.29-11.43)
[2023-07-17 06:16] LABS: Alanine Aminotransferase 11 U/L (0-41); Albumin Level 2.6 g/dL (3.5-5.2); Alkaline Phosphatase 79 U/L (40-130); Anion Gap 13.3 (5-19); Aspartate Amino Transferase 16 U/L (0-40); Blood Urea Nitrogen 26 mg/dL (8-23); Calcium 9.9 mg/dL (8.5-10.5); Carbon Dioxide 22 mmol/L (22-29); Chloride 108 mmol/L (98-107); Globulin 2.9 g/dL (1.3-4.6); Glucose 94 mg/dL (65-115); Osmolality Calculated 295 mOsm/kg (285-295); Potassium 3.3 mmol/L (3.5-5.1); Sodium 140 mmol/L (136-145); Total Bilirubin 0.2 mg/dL (0.15-1.2); Total Protein 5.5 g/dL (6.6-8.7)
[2023-07-17 06:52] LABS: Glucose Point of Care 108 mg/dL (70-110)
[2023-07-17] MEDS: morphine 4 mg/mL SDV 1 mL 1 MG IVP ×2 (08:36→23:24)
[2023-07-17] MEDS: insulin glargine 100 units/1 mL 16 UNIT SUBCUT (08:41)
[2023-07-17] MEDS: famotidine 20 mg Tablet PO ×2 (08:41→17:24)
[2023-07-17] MEDS: insulin lispro 100 unit/1 mL 10 UNIT SUBCUT (08:41)
[2023-07-17] MEDS: losartan 50 mg Tablet 100 MG PO (08:41)
[2023-07-17] MEDS: metoprolol tartrate 25 mg Tablet PO ×2 (08:42→22:36)
[2023-07-17 11:17] LABS: Glucose Point of Care 121 mg/dL (70-110)
[2023-07-17] MEDS: acetaminophen 325 mg Tablet 650 MG PO (11:42)
--- NOTE | 2023-07-17 12:34 | XRR_ITS ---
PROCEDURE INFORMATION: Exam: XR Chest Exam date and time: 07/17/2023 1:14 PM Age: 78 years old Clinical indication: Other: N/a; Additional info: Chf TECHNIQUE: Imaging protocol: Radiologic exam of the chest. Views: 1 view. COMPARISON: 1[place] [id number] 07/15/2023 3:10 PM 2. CR XR chest 1V portable [id number] 07/15/2023 2:12 PM FINDINGS: Lungs: Similar to slightly worsened left upper lobe consolidation. Stable medial right lower lung opacity. Pleural spaces: Small left pleural effusion. No pneumothorax. Heart/Mediastinum: Stable with multiple mediastinal surgical clips. Vasculature: Aortic and left carotid atherosclerotic calcification. Bones/joints: Multiple median sternotomy wires. Mild degenerative changes along the spine and shoulders. XR/XR chest 1V portable [id number] IMPRESSION: Similar to slightly worsened left upper lobe consolidation and small pleural effusion.
[2023-07-17 13:05] LABS: NT Pro B Type Natriuretic Pept 2958 pg/mL (0-450)
[2023-07-17] MEDS: calcitonin,salmon 200 unit/mL SDV 2mL 300 UNIT SUBCUT ×2 (13:05→17:51)
--- NOTE | 2023-07-17 13:24 | PM.PN ---
Subjective Subjective: No acute events overnight. Today morning patient lying comfortably in bed. More awake and alert. Able to have complete conversation. States he is feeling slightly better. Denies any difficulty in breathing though does regular activity today. Continues to saturate more than 92% on 2 L of oxygen supplementation. Hemodynamically stable and afebrile over last 24 hours. Blood work consistent with mild leukocytosis, stable hemoglobin, CMP showing mild hypokalemia with potassium of 3.3, stable kidney functions with creatinine of 1.4, calcium levels improving to 9.9 with a normal ionized calcium level. Vitals/I&O/Wt Last Vital Signs Temp 97.6 F 07/17/23 11:46 Pulse 85 07/17/23 13:11 Resp 18 07/17/23 13:11 BP 138/68 07/17/23 11:46 Pulse Ox 93 07/17/23 13:11 O2 Del Method Nasal Cannula 07/17/23 13:11 O2 Flow Rate 2 07/17/23 13:11 07/16/23 07/17/23 07/17/23 22:59 06:59 14:59 Intake Total 1250 / 1370 350 / 1720 120 / 120 Output Total 820 / 1120 500 / 1620 Balance 430 / 250 -150 / 100 120 / 120 Weight last 48 hrs Weight 86.75 kg Weight 79.379 kg Physical Exam Narrative: General: No acute distress, AO x2-3, confused intermittently HEENT: PERRLA, pupils bilaterally equal and reactive Chest: Bilateral bronchial breath sounds all over lung koo with coarse crackles present and left upper lobe CVS: S1-S2 regular, no murmurs, no tachycardia, no gallops, no rubs Abdomen: Soft, nontender, no organomegaly, bowel sounds present Neuro: No focal deficits, no facial deformity, AO x3, power 5/5 in all limbs Data 07/17/23 04:56 07/17/23 04:56 Micro: Microbiology 07/15/23 14:53 Blood Culture - Preliminary Blood NEGATIVE TO DATE 07/15/23 14:48 Blood Culture - Preliminary Blood NEGATIVE TO DATE A&P Assessment and plan (1) Hypercalcemia: (2) Mass of upper lobe of left lung: (3) Postobstructive pneumonia: (4) Metastasis to liver: (5) Essential hypertension: (6) Chronic kidney disease, stage III (moderate): (7) Coronary artery disease due to type 2 diabetes mellitus: (8) Hypervitaminosis D: (9) Goals of care, counseling/discussion: (10) Physical deconditioning: (11) Decubitus ulcer: Plan 72 gentleman admitted for hypercalcemia found to have a left upper lobe mass. Hypercalcemia: Moderate symptomatic. Most likely in setting of malignancy. PTH normal, vitamin D levels elevated to more than 120, ionized calcium is elevated, urine calcium normal. PTH RP awaited. Given history of congestive heart failure in the past patient seems slightly fluid overloaded today. Stop fluids. Check chest x-ray, proBNP levels. Depending on the same we will plan for oral Lasix. Oxygen supplementation keeping saturation over 90%. Calcium level improving to 9.9. Repeat calcium and ionized calcium levels in AM. For now as patient already received Zolendronic. Most likely can repeat in next 7 days if has persistent or worsening hypercalcemia. Continue calcitonin 300 units which is 4 units/kg body weight every 12 hourly for next 24 hours. Left lung mass: Most likely malignancy. Appreciate CT chest abdomen pelvis without contrast. Consistent with significant lung mass with hilar lymphadenopathy, peritoneal carcinomatosis, diffuse possible liver metastasis, adrenal metastasis and possible bony metastasis. Patient states he has had multiple cancers in the past and does not want to go through the process again. He is okay with the biopsy so that he and his family can understand the prognosis and to make sure it is not genetic for the family to follow-up later. Appreciate pulmonary recommendations. Plan for PET scan as an outpatient and then possible bronchoscopy and biopsy around 08/03. Pulmicort twice daily, DuoNeb every 6 hours. Postobstructive pneumonia: Patient is afebrile but has persistent leukocytosis. For now empirically start patient on IV meropenem. MRSA swab pending. If positive will add vancomycin. Most likely can discharge on oral antibiotics once stable to be moved. Hypertension: Goal pressure less than 140/90 mmhg. Continue with home dose of losartan. Will uptitrate as for goal blood pressures. Type 2 diabetes mellitus: A1c- 6.9. Blood sugars appropriately controlled. Continue home dose of Humalog 10 units premeals, 16 units of Lantus nightly along with correctional low-dose insulin sliding scale. CAD/post CABG: Restart Plavix today as patient is not going for bronchoscopy during this hospitalization. We will plan to stop Plavix 3 days prior to bronchoscopy. Appreciate lipid panel. History of congestive heart failure: Diastolic type. Fluid status and treatment as above. Last echocardiogram in 2020 shows EF of 55%, grade 2 diastolic dysfunction with dilated LA. For now continue to monitor fluid status. Replace potassium with 40 milliequivalents orally. CODE STATUS: DNR/DNI. Diabetic diet. Protonix for PUD prophylaxis Heparin 5000 every 12 hourly for DVT prophylaxis. Discharge plan: Daughter states patient's needs have gradually increased and she is not able to take care of the patient anymore at home. She would like the patient to transition to SNF as possible. Patient is agreeable. Case management alerted. Attestations Medical Necessity Statement*: Requires further hospitalization for management of hypercalcemia related to malignancy, hypervitaminosis D mild safe discharge planning is sought. 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
[2023-07-17] MEDS: clopidogrel 75 mg Tablet PO (15:02)
[2023-07-17] MEDS: potassium chloride ER 20 mEq Tablet 40 MEQ PO (15:02)
[2023-07-17 17:16] LABS: Glucose Point of Care 92 mg/dL (70-110)
[2023-07-17 17:32] LABS: Calcium 9.5 mg/dL (8.5-10.5)
[2023-07-17 20:25] LABS: Glucose Point of Care 105 mg/dL (70-110)
[2023-07-18] VITALS (8 sets, daily range): BP systolic 113–146; BP diastolic 66–73; PULSE 80–94; RESP 16–19; TEMP 36.3–36.6; O2SAT 91–95; BMI 26.2
[2023-07-18] MEDS: ALPRAZolam 0.5 mg Tablet PO (00:29)
[2023-07-18] MEDS: meropenem 1,000 MG in sodium chloride 0.9% (plus) 50 ML 100 MG IV ×2 (03:30→14:47)
[2023-07-18] MEDS: heparin 5,000 unit/mL INJ 1 mL 5000 UNIT SUBCUT ×2 (03:35→17:27)
[2023-07-18 05:47] LABS: Basophils # 0.1 10^3/uL (0.0-0.1); Basophils % 0.7 %; Eosinophils # 0.2 10^3/uL (0.0-0.8); Eosinophils % 1.5 %; Lymphocytes # 1.2 10^3/uL (0.8-4.8); Mean Corpuscular HGB Conc 31.6 g/dL (30-55); Mean Corpuscular Hemoglobin 29.3 pg (27-33); Mean Corpuscular Volume 92.5 fl (82-101); Mean Platelet Volume 10.6 fL (7.4-10.4); Monocytes # 0.9 10^3/uL (0.2-0.9); Monocytes % 6.7 %; Neutrophils # 10.98 10^3/uL (1.8-7.7); Neutrophils % 79.8 %; Nucleated Red Blood Cells % 0 %; Platelet Count 498 10^3/cmm (157-399); Red Cell Distribution Width 13.3 % (12.1-15.1); White Blood Count 13.75 10^3/uL (3.29-11.43)
[2023-07-18 06:08] LABS: Alanine Aminotransferase 10 U/L (0-41); Albumin Level 2.7 g/dL (3.5-5.2); Alkaline Phosphatase 76 U/L (40-130); Anion Gap 11.8 (5-19); Aspartate Amino Transferase 18 U/L (0-40); Blood Urea Nitrogen 24 mg/dL (8-23); Calcium 9.6 mg/dL (8.5-10.5); Carbon Dioxide 23 mmol/L (22-29); Chloride 115 mmol/L (98-107); Globulin 2.8 g/dL (1.3-4.6); Glucose 80 mg/dL (65-115); Osmolality Calculated 305 mOsm/kg (285-295); Potassium 3.8 mmol/L (3.5-5.1); Sodium 146 mmol/L (136-145); Total Bilirubin 0.2 mg/dL (0.15-1.2); Total Protein 5.5 g/dL (6.6-8.7)
[2023-07-18 06:44] LABS: Glucose Point of Care 89 mg/dL (70-110)
[2023-07-18] MEDS: insulin glargine 100 units/1 mL 16 UNIT SUBCUT (08:51)
[2023-07-18] MEDS: losartan 50 mg Tablet 100 MG PO (08:52)
[2023-07-18] MEDS: calcitonin,salmon 200 unit/mL SDV 2mL 300 UNIT SUBCUT (08:52)
[2023-07-18] MEDS: famotidine 20 mg Tablet PO ×2 (08:53→17:27)
[2023-07-18] MEDS: metoprolol tartrate 25 mg Tablet PO ×2 (08:53→21:44)
[2023-07-18] MEDS: clopidogrel 75 mg Tablet PO (08:54)
[2023-07-18] MEDS: morphine 4 mg/mL SDV 1 mL 1 MG IVP ×3 (09:00→21:58)
[2023-07-18] MEDS: sodium chloride 0.45% 1,000 ML 75 ML IV (11:10)
[2023-07-18 11:18] LABS: Vit D 1,25 (Oh)2, Total 81 pg/mL (18-72); Vit D2 1,25 (Oh)2 <8 pg/mL; Vit D3 1,25 (Oh)2 81 pg/mL
--- NOTE | 2023-07-18 12:05 | PC.SOCIAL ---
IMM Update pg 2 of [facility] udpated and reviewed w/ patient. Copy provided and copy dated, initialed and placed in chart.
[2023-07-18] MEDS: insulin lispro 100 unit/1 mL 10 UNIT SUBCUT (12:37)
[2023-07-18] MEDS: insulin lispro 100 unit/1 mL SUBCUT (12:37)
[2023-07-18 13:00] LABS: Glucose Point of Care 151 mg/dL (70-110)
--- NOTE | 2023-07-18 14:14 | P.PN_ITS ---
Subjective Subjective: No acute events overnight. Today morning patient seen sitting up at side of the bed. Awake and alert. Able to have complete conversation. Denies any new symptoms. States breathing is stable. As per the nurse patient is not maintaining his oral intake. Patient himself denies any nausea, vomiting, headache. Blood work today shows improving leukocytosis, stable hemoglobin, sodium up to 146 on CMP, creatinine BUN stable at baseline. Vitals/I&O/Wt Last Vital Signs Temp 97.3 F L 07/18/23 12:00 Pulse 90 07/18/23 12:00 Resp 16 07/18/23 12:00 BP 146/73 07/18/23 12:00 Pulse Ox 94 07/18/23 12:00 O2 Del Method Nasal Cannula 07/18/23 11:34 O2 Flow Rate 2 07/18/23 11:34 07/17/23 07/18/23 07/18/23 22:59 06:59 14:59 Intake Total 1137.5 / 1257.5 50 / 1307.5 360 / 360 Balance 1137.5 / 1257.5 50 / 1307.5 360 / 360 Weight last 48 hrs Weight 86.75 kg Physical Exam Narrative: General: No acute distress, AO x2-3, confused intermittently HEENT: PERRLA, pupils bilaterally equal and reactive Chest: Bilateral bronchial breath sounds all over lung koo with coarse crackl es present and left upper lobe CVS: S1-S2 regular, no murmurs, no tachycardia, no gallops, no rubs Abdomen: Soft, nontender, no organomegaly, bowel sounds present Neuro: No focal deficits, no facial deformity, AO x3, power 5/5 in all limbs Data 07/18/23 05:12 07/18/23 05:12 Micro: Microbiology 07/16/23 17:42 MRSA Culture - Final Nose A&P Assessment and plan (1) Hypercalcemia: (2) Mass of upper lobe of left lung: (3) Postobstructive pneumonia: (4) Metastasis to liver: (5) Essential hypertension: (6) Chronic kidney disease, stage III (moderate): (7) Coronary artery disease due to type 2 diabetes mellitus: (8) Hypervitaminosis D: (9) Goals of care, counseling/discussion: (10) Physical deconditioning: (11) Decubitus ulcer: Plan 72 gentleman admitted for hypercalcemia found to have a left upper lobe mass. Hypercalcemia: Moderate symptomatic. Most likely in setting of malignancy. PTH normal, vitamin D levels elevated to more than 120, ionized calcium is elevated, urine calcium normal. PTH RP awaited. Hypercalcemia resolved. Calcium level stable at around 9.5-9.7. Patient has received 3-day course of calcitonin. Received 1 dose of zoledronic acid on admission. Hold off on calcitonin for now. We will monitor calcium levels. Patient might need 1 more dose of zoledronic acid in few days. Hypernatremia: Patient does have history of congestive heart failure hence the fluid was stopped yesterday. Patient also having restricted oral intake for now given his baseline health. Restart fluids with half NS for hypernatremia secondary to poor oral intake at 75 cc/h. Left lung mass: Most likely malignancy. Appreciate CT chest abdomen pelvis without contrast. Consistent with significant lung mass with hilar lymphadenopathy, peritoneal carcinomatosis, diffuse possible liver metastasis, adrenal metastasis and possible bony metastasis. Patient states he has had multiple cancers in the past and does not want to go through the process again. He is okay with the biopsy so that he and his family can understand the prognosis and to make sure it is not genetic for the family to follow-up later. Appreciate pulmonary recommendations. Plan for PET scan as an outpatient and then possible bronchoscopy and biopsy around 08/03. Pulmicort twice daily, DuoNeb every 6 hours. Postobstructive pneumonia: Patient is afebrile but has persistent leukocytosis. For now empirically start patient on IV meropenem. MRSA swab pending. If positive will add vancomycin. Most likely can discharge on oral antibiotics once stable to be moved. Hypertension: Goal pressure less than 140/90 mmhg. Continue with home dose of losartan. Will uptitrate as for goal blood pressures. Type 2 diabetes mellitus: A1c- 6.9. Blood sugars appropriately controlled. Continue home dose of Humalog 10 units premeals, 16 units of Lantus nightly along with correctional low-dose insulin sliding scale. CAD/post CABG: Restart Plavix today as patient is not going for bronchoscopy during this hospitalization. We will plan to stop Plavix 3 days prior to bro nchoscopy. Appreciate lipid panel. History of congestive heart failure: Diastolic type. Fluid status and treatment as above. Last echocardiogram in 2020 shows EF of 55%, grade 2 diastolic dysfunction with dilated LA. For now continue to monitor fluid status. Replace potassium with 40 milliequivalents orally. CODE STATUS: DNR/DNI. Diabetic diet. Protonix for PUD prophylaxis Heparin 5000 every 12 hourly for DVT prophylaxis. Discharge plan: Daughter states patient's needs have gradually increased and she is not able to take care of the patient anymore at home. She would like the p atient to transition to SNF as possible. Patient is agreeable. Case management alerted. Goals of care discussion: Discussed in detail with daughter over the phone. We discussed that unfortunately Garcia has very poor baseline health with decline in his health recently especially given weight loss, development of decubitus ulcer prior to admission which tells us that patient had baseline is usually sedentary in bed, poor oral intake and given his proximal goals of not pursuing treatment for possible cancer, DNR/DNI it would be appropriate for hospice care for his comfort. Discussed not concerning is advised has poor oral intake which would lead him to have more dehydration causing him to have more hypercalcemia for which treatment would be to either to encourage his oral intake or for artificial feeds for IV fluids. Daughter verbalized understanding. Is agreeable for hospice. She would prefer to go through [facility] for hospice care at long-term. Attestations Medical Necessity Statement*: Requires further hospitalization for management of hypercalcemia in setting of possible malignancy, hypernatremia secondary to poor oral intake in an elderly with new diagnosis of lung mass with possible distant metastasis Diagnoses Hypercalcemia E83.52 Mass of upper lobe of left lung R91.8 Postobstructive pneumonia J18.9 Metastasis to liver C78.7 Essential hypertension I10 Chronic kidney disease, stage III (moderate) N18.30 Coronary artery disease due to type 2 diabetes mellitus E11.59; I25.10 Hypervitaminosis D E67.3 Goals of care, counseling/discussion Z71.89 Physical deconditioning R53.81 Decubitus ulcer L89.90
[2023-07-18 18:23] LABS: Glucose Point of Care 67 mg/dL (70-110)
--- NOTE | 2023-07-18 18:35 | PC.NURSE ---
Patient's blood sugar was rechecked at 1835. Patient's blood sugar was 74 at this time. Patient did not eat supper but did drink 100% of his Glucerna.
[2023-07-18 18:38] LABS: Glucose Point of Care 74 mg/dL (70-110)
[2023-07-18 19:40] LABS: Glucose Point of Care 97 mg/dL (70-110)
[2023-07-19] VITALS (8 sets, daily range): BP systolic 137–163; BP diastolic 67–78; PULSE 78–99; RESP 16–18; TEMP 36.2–36.8; O2SAT 92–95
[2023-07-19 01:09] LABS: Glucose Point of Care 112 mg/dL (70-110)
[2023-07-19] MEDS: morphine 4 mg/mL SDV 1 mL 1 MG IVP (02:57)
[2023-07-19] MEDS: heparin 5,000 unit/mL INJ 1 mL 5000 UNIT SUBCUT (04:27)
[2023-07-19] MEDS: meropenem 1,000 MG in sodium chloride 0.9% (plus) 50 ML 100 MG IV (04:27)
[2023-07-19 05:22] LABS: Basophils # 0.1 10^3/uL (0.0-0.1); Basophils % 0.8 %; Eosinophils # 0.3 10^3/uL (0.0-0.8); Eosinophils % 2.1 %; Hematocrit 38.6 % (37-53); Lymphocytes # 1.3 10^3/uL (0.8-4.8); Lymphocytes % 10.1 %; Mean Corpuscular HGB Conc 31.9 g/dL (30-55); Mean Corpuscular Hemoglobin 29.5 pg (27-33); Mean Corpuscular Volume 92.6 fl (82-101); Mean Platelet Volume 10.9 fL (7.4-10.4); Monocytes # 0.8 10^3/uL (0.2-0.9); Monocytes % 6.5 %; Neutrophils # 9.64 10^3/uL (1.8-7.7); Neutrophils % 77.7 %; Nucleated Red Blood Cells % 0 %; Platelet Count 491 10^3/cmm (157-399); Red Blood Count 4.17 10^6/uL (3.85-5.65); Red Cell Distribution Width 13.4 % (12.1-15.1); White Blood Count 12.41 10^3/uL (3.29-11.43)
[2023-07-19 05:43] LABS: Alanine Aminotransferase 12 U/L (0-41); Albumin Level 2.4 g/dL (3.5-5.2); Alkaline Phosphatase 84 U/L (40-130); Anion Gap 12.8 (5-19); Aspartate Amino Transferase 23 U/L (0-40); Blood Urea Nitrogen 27 mg/dL (8-23); Calcium 9.9 mg/dL (8.5-10.5); Carbon Dioxide 24 mmol/L (22-29); Chloride 110 mmol/L (98-107); Globulin 3.2 g/dL (1.3-4.6); Glucose 99 mg/dL (65-115); Osmolality Calculated 301 mOsm/kg (285-295); Potassium 3.8 mmol/L (3.5-5.1); Sodium 143 mmol/L (136-145); Total Bilirubin 0.3 mg/dL (0.15-1.2); Total Protein 5.6 g/dL (6.6-8.7)
[2023-07-19 06:54] LABS: Glucose Point of Care 93 mg/dL (70-110)
[2023-07-19] MEDS: losartan 50 mg Tablet 100 MG PO (08:32)
[2023-07-19] MEDS: metoprolol tartrate 25 mg Tablet PO (08:32)
[2023-07-19] MEDS: clopidogrel 75 mg Tablet PO (08:32)
[2023-07-19] MEDS: famotidine 20 mg Tablet PO (08:32)
[2023-07-19] MEDS: morphine 4 mg/mL SDV 1 mL 2 MG IVP (08:54)
--- NOTE | 2023-07-19 10:55 | PM.DCS ---
Discharge Providers Date of Admission: 07/15/23 14:14 Date of Discharge: July 19, 2023 Attending Provider at Admission: Kaz Cruz MD Attending Provider at Discharge: Jaylon Mendez MD Consults: Pulmonary Primary Care Provider: Marcelo De Santiago DO Diagnoses at Discharge Discharge Diagnosis (1) Hypercalcemia: Status: Acute (2) Mass of upper lobe of left lung: Status: Acute (3) Postobstructive pneumonia: Status: Acute (4) Metastasis to liver: Status: Acute (5) Essential hypertension: Status: Acute (6) Chronic kidney disease, stage III (moderate): Status: Acute (7) Coronary artery disease due to type 2 diabetes mellitus: Status: Acute (8) Hypervitaminosis D: Status: Acute (9) Goals of care, counseling/discussion: Status: Acute (10) Physical deconditioning: Status: Acute (11) Decubitus ulcer: Status: Acute Reason for Visit Reason for Visit: sent from [facility] to [facility] Course Hospital Course Garcia Lundy is a 78-year-old male with a past medical history significant for type 2 diabetes mellitus, hypertension, lung cancer, and prostate cancer who presented with hypercalcemia, found to have left upper lobe mass. Hypercalcemia was treated with pharmacological treatment with resolution. Goals of care conversations were held with the patient and family. Although patient does not desire treatment for what ever the lung mass may end up being, they do want biopsy for diagnosis. Patient will have lung biopsy as outpatient with Dr. Diamond. He will need his Plavix discontinued 3 days prior to biopsy unless instructed otherwise by pulmonology. Patient was found to have postobstructive pneumonia treated with IV antibiotics and transition to oral regimen at discharge. Patient was found to have gradual decline with significant debility and physical deconditioning. As such, patient was discharged to residential facility for further care. Physical Exam Narrative: General: Patient is awake. No acute distress. Head: Normocephalic. Atraumatic. EOM intact. Neck: No JVD. Cardiovascular: RRR. No gallops. No murmurs. No peripheral edema. Lungs: Breath sounds diminished at bilateral bases, no use of accessory muscles, no crackles or wheezes. Skin: No jaundice. No rashes. Abdomen: Normal bowel sounds, abdomen soft and nontender. Extremities: No cyanosis or clubbing. Musculoskeletal: No swollen or erythematous joints. Neurological: Moves all 4 extremities. No myoclonus. Discharge Data Studies Completed and Pending Completed Studies During Hospitalization Category Date Time Status CT chest abdomen pelvis [[place] [id number] Cat Scan 07/15/23 14:55 Completed ] Stat XR chest 1V portable [id number] Routine Exams 07/17/23 12:34 Completed XR chest 1V portable [id number] Stat Exams 07/15/23 13:57 Completed Pending at discharge Category Date Time Status Blood Culture Stat Lab 07/15/23 14:53 Results PTH Related [PTH Related Peptide (Protein)] Stat Lab 07/15/23 16:08 Received SARS Covid-2 Antigen Routine Lab 07/19/23 09:16 Uncollected Vitamin A (Retinol) Routine Lab 07/16/23 13:35 Received Radiology Impressions Chest X-Ray 07/17/23 12:34 IMPRESSION: Similar to slightly worsened left upper lobe consolidation and small pleural effusion. Laboratory Results WBC 12.41 10^3/uL (3.29-11.43) H 07/19/23 04:24 RBC 4.17 10^6/uL (3.85-5.65) 07/19/23 04:24 Hgb 12.30 g/dL (11.27-16.99) 07/19/23 04:24 Hct 38.6 % (37-53) 07/19/23 04:24 MCV 92.6 fl (82-101) 07/19/23 04:24 MCH 29.5 pg (27-33) 07/19/23 04:24 MCHC 31.9 g/dL (30-55) 07/19/23 04:24 RDW 13.4 % (12.1-15.1) 07/19/23 04:24 Plt Count 491 10^3/cmm (157-399) H 07/19/23 04:24 MPV 10.9 fL (7.4-10.4) H 07/19/23 04:24 Neut % (Auto) 77.7 % 07/19/23 04:24 Lymph % (Auto) 10.1 % 07/19/23 04:24 [place] % (Auto) 6.5 % 07/19/23 04:24 Eos % (Auto) 2.1 % 07/19/23 04:24 Baso % (Auto) 0.8 % 07/19/23 04:24 Neut # (Auto) 9.64 10^3/uL (1.8-7.7) H 07/19/23 04:24 Lymph # (Auto) 1.3 10^3/uL (0.8-4.8) 07/19/23 04:24 [place] # (Auto) 0.8 10^3/uL (0.2-0.9) 07/19/23 04:24 Eos # (Auto) 0.3 10^3/uL (0.0-0.8) 07/19/23 04:24 Baso # (Auto) 0.1 10^3/uL (0.0-0.1) 07/19/23 04:24 Nucleated RBC % (auto) 0 % 07/19/23 04:24 Nucleated RBCs # 0.0 /100WBC 07/19/23 04:24 Sodium 143 mmol/L (136-145) 07/19/23 04:24 Potassium 3.8 mmol/L (3.5-5.1) 07/19/23 04:24 Chloride 110 mmol/L (98-107) H 07/19/23 04:24 Carbon Dioxide 24 mmol/L (22-29) 07/19/23 04:24 Anion Gap 12.8 (5-19) 07/19/23 04:24 BUN 27 mg/dL (8-23) H 07/19/23 04:24 Creatinine 1.3 mg/dL (0.7-1.2) H 07/19/23 04:24 GFR Calculation Not Reportable 07/19/23 04:24 Glucose 99 mg/dL (65-115) 07/19/23 04:24 POC Glucose 93 mg/dL (70-110) 07/19/23 06:42 Calculated Osmolality 301 mOsm/kg (285-295) H 07/19/23 04:24 Lactic Acid 1.3 mmol/L (0.5-2.2) 07/15/23 14:48 Calcium 9.9 mg/dL (8.5-10.5) 07/19/23 04:24 Ionized Calcium Philip 1.4 mmol/L (1.1-1.4) 07/17/23 04:56 Phosphorus 2.2 mg/dL (2.5-4.5) L 07/16/23 04:46 Magnesium 1.8 mg/dL (1.7-2.3) 07/16/23 04:46 Iron 29 ug/dL (59-158) L 07/15/23 13:22 TIBC 188 mcg/dl 07/15/23 13:22 % Saturation 15.4 % (20-50) L 07/15/23 13:22 Unsat Iron Binding 159 ug/dL (112-347) 07/15/23 13:22 Total Bilirubin 0.3 mg/dL (0.15-1.2) 07/19/23 04:24 AST 23 U/L (0-40) 07/19/23 04:24 ALT 12 U/L (0-41) 07/19/23 04:24 Alkaline Phosphatase 84 U/L (40-130) 07/19/23 04:24 Creatine Kinase 51 U/L (39-308) 07/16/23 04:46 NT-Pro-B Natriuret Pep 2958 pg/mL (0-450) H 07/17/23 09:56 Total Protein 5.6 g/dL (6.6-8.7) L 07/19/23 04:24 Albumin 2.4 g/dL (3.5-5.2) L 07/19/23 04:24 Globulin 3.2 g/dL (1.3-4.6) 07/19/23 04:24 Vitamin B12 > 2000 pg/mL (232-1245) H 07/15/23 13:22 25-OH Vitamin D Total 81 pg/mL (18-72) H 07/15/23 13:22 25-OH Vitamin D Total > 120 ng/mL (30-100) H* 07/15/23 13:22 1,25 Dihydroxy Vit D2 <8 pg/mL 07/15/23 13:22 1,25 Dihydroxy Vit D3 81 pg/mL 07/15/23 13:22 Folate 18.8 ng/mL (4.5-32.2) 07/16/23 04:46 Procalcitonin 1.20 ng/mL (0-0.5) H 07/15/23 13:22 TSH 3.45 uIU/mL (0.27-4.20) 07/15/23 13:22 PTH Intact 25.9 pg/mL (15-65) 07/15/23 13:22 Calcium (PTH Intact) 12.7 mg/dL (8.5-10.5) H 07/15/23 13:22 Urine Color Yellow (Yellow) 07/15/23 16:00 Urine Appearance Clear (CLEAR) 07/15/23 16:00 Urine pH 5 (5-7) 07/15/23 16:00 Ur Specific Snyder 1.020 (1.005-1.030) 07/15/23 16:00 Urine Protein Neg (Negative) 07/15/23 16:00 Urine Glucose (UA) Norm (Normal) 07/15/23 16:00 Urine Ketones Negative (Negative) 07/15/23 16:00 Urine Blood Neg (Negative) 07/15/23 16:00 Urine Nitrate Negative (Negative) 07/15/23 16:00 Urine Bilirubin Neg (Negative) 07/15/23 16:00 Urine Urobilinogen Norm mg/dL (Negative) 07/15/23 16:00 Ur Leukocyte Esterase Negative (Negative) 07/15/23 16:00 Ur Random Sodium 25 mmol/L 07/15/23 16:00 Ur Random Potassium 35 mmol/L 07/15/23 16:00 Ur Random Chloride 18 mmol/L 07/15/23 16:00 Ur Random Calcium 24.9 mg/dL 07/15/23 16:00 Urine Creatinine 96 mg/dL (39-259) 07/15/23 16:00 Procedures Performed None Vitals Last Vital Signs Temp 97.2 F L 07/19/23 08:00 Pulse 99 07/19/23 08:00 Resp 16 07/19/23 08:54 BP 137/71 07/19/23 08:32 Pulse Ox 92 07/19/23 08:00 O2 Del Method Nasal Cannula 07/19/23 08:00 O2 Flow Rate 2 07/19/23 08:29 Discharge Plan Discharge Patient Disposition: Xfer SNF Condition: Stable Prescriptions: New cefdinir 300 mg capsule 300 mg PO BID 5 Days Qty: 10 0RF Continued clopidogrel 75 mg tablet 75 mg PO DAILY Lantus Solostar U-100 Insulin 100 unit/mL (3 mL) insulin pen 16 unit SUBCUT DAILY magnesium citrate [Citrate of Magnesia] Solution 150 ml PO DAILY nitroglycerin 0.4 mg tablet, sublingual 0.4 mg sublingual Q5M PRN (Reason: chest pain) Qty: 20 3RF Rx Instructions: do not exceed 3 doses per episode Lasix 20 mg tablet 20 mg PO QAM Rx Instructions: Takes 1 extra PRN Glucagon Emergency Kit (human) 1 mg recon soln 1 mg SUBCUT Q20M PRN (Reason: hypoglycemia) Qty: 3 3RF Rx Instructions: until target blood sugar attained (DME) Compression stockings See Rx Instructions .Route .MEDSUPPLY Qty: 6 0RF Rx Instructions: As directed by ALANIS ondansetron 4 mg tablet,disintegrating 4 mg translingual Q4H PRN (Reason: nausea) Qty: 5 0RF Rx Instructions: Dissolve 1 tablet under tongue every 4 hours PRN for nausea bisacodyl 10 mg suppository 10 mg UT DAILY PRN (Reason: constipation) Qty: 5 0RF Rx Instructions: 1 suppository per rectum every day PRN for constipation. lorazepam 2 mg/mL concentrate 2 mg sublingual Q4H PRN (Reason: Anxiety/Seizure) Qty: 30 0RF Rx Instructions: 0.25ml-1ml q4H PRN Anxiety/Seizure Start 0.25ml may increase to 0.5ml-1ml q4H morphine concentrate 100 mg/5 mL (20 mg/mL) solution 20 mg sublingual DIRECTED PRN (Reason: Pain/SOB) 14 Days Qty: 30 0RF Rx Instructions: 0.25ml-1ml q1H PRN may increase to 0.5ml-1ml Q1H PRN atropine 1 % drops 4 drp sublingual Q4H PRN (Reason: secretions) Qty: 5 0RF Rx Instructions: 4 drops SL q 4 hours PRN for terminal congestion/excessive secretions. multivitamin Tablet 1 tab PO DAILY albuterol sulfate 90 mcg/actuation HFA aerosol inhaler 2 inh inhalation Q8H PRN (Reason: shortness of breath or wheezing) Qty: 8.5 2RF alprazolam [Xanax] 0.5 mg tablet 0.5 mg PO BID PRN (Reason: anxiety) Qty: 7 0RF Vitamin C 500 mg tablet 1 g PO DAILY Novolog FlexPen U-100 Insulin 100 unit/mL (3 mL) insulin pen 10 unit SUBCUT TID potassium chloride 20 mEq tablet extended release 20 meq PO DAILY losartan 100 mg Tablet 100 mg PO DAILY Discharge Orders: Discharge Order (Routine); Ordered 07/19/23 Ordered By: Jaylon Mendez Referrals: [facility] [Outside] Datar,Norbert Marie MD [Physician] - 1 week (Biopsy for 07/23 per Datar We have notified your physician's clinic of the need for a follow-up appointment to be scheduled. If you have not heard from them within the next 2 business days, please call them directly. You may also reach out to our operations manager/coordinator at [phone] and she can assist you.) Marcelo De Santiago, [Primary Care Provider] - Discharge Diet: Advance as tolerated and Usual diet Discharge Activity: Resume usual activity and Increase activity as tolerated Patient Instructions: Opioid Safety Activity Restrictions/Additional Instructions: 1. Increase activity as tolerated. 2. Take medications as prescribed. 3. Follow up with hospice. 4. Diet as tolerated. 5. Follow up with pulmonary if biopsy if desired. Discharge Attestations Time Spent in Discharge Care*: greater than 30 min Quality Metrics Clinical Quality Measures [ No reported AMI, CVA or VTE this stay] Coding Level of Care Code Acute Code for Chg Fwd Diagnoses Hypercalcemia E83.52 Mass of upper lobe of left lung R91.8 Postobstructive pneumonia J18.9 Metastasis to liver C78.7 Essential hypertension I10 Chronic kidney disease, stage III (moderate) N18.30 Coronary artery disease due to type 2 diabetes mellitus E11.59; I25.10 Hypervitaminosis D E67.3 Goals of care, counseling/discussion Z71.89 Physical deconditioning R53.81 Decubitus ulcer L89.90
[2023-07-19 11:24] LABS: SARS Covid-2 Antigen negative (Negative)
[2023-07-19 11:49] LABS: Glucose Point of Care 202 mg/dL (70-110)
[2023-07-19] MEDS: insulin lispro 100 unit/1 mL 10 UNIT SUBCUT (11:54)
[2023-07-19] MEDS: insulin lispro 100 unit/1 mL SUBCUT (11:55)
[2023-07-22 16:49] LABS: PTH Related Peptide (Protein) 12 pg/mL (11-20)
[2023-07-23 17:00] LABS: Vitamin A (Retinol) 31 mcg/dL (38-98)
== END 2023-07-19 14:09 | disposition skilled nursing facility (03) | DRG 640 ==
LOC: ER 13:32 → MEDSURG 16:03
PROVIDERS: Admitting Provider Student in an Organized Health Care Education/Training Program; Emergency Provider Family Medicine; PCP Emergency Medicine Emergency Medical Services; Visit Provider Internal Medicine
DX: E83.52 Hypercalcemia (principal); J18.9 Pneumonia, unspecified organism; I13.0 Hypertensive heart and chronic kidney disease with heart failure and stage 1 through stage 4 chronic kidney disease, or unspecified chronic kidney disease; E87.0 Hyperosmolality and hypernatremia; E11.22 Type 2 diabetes mellitus with diabetic chronic kidney disease; E11.65 Type 2 diabetes mellitus with hyperglycemia; N18.30 Chronic kidney disease, stage 3 unspecified; I50.9 Heart failure, unspecified; E11.21 Type 2 diabetes mellitus with diabetic nephropathy; E11.51 Type 2 diabetes mellitus with diabetic peripheral angiopathy without gangrene; Z95.820 Peripheral vascular angioplasty status with implants and grafts; Z85.46 Personal history of malignant neoplasm of prostate; Z85.118 Personal history of other malignant neoplasm of bronchus and lung; R91.8 Other nonspecific abnormal finding of lung field; Z79.02 Long term (current) use of antithrombotics/antiplatelets; Z79.4 Long term (current) use of insulin; I25.10 Atherosclerotic heart disease of native coronary artery without angina pectoris; Z95.5 Presence of coronary angioplasty implant and graft; Z95.1 Presence of aortocoronary bypass graft; K21.9 Gastro-esophageal reflux disease without esophagitis; E78.5 Hyperlipidemia, unspecified; Z87.891 Personal history of nicotine dependence; Z66 Do not resuscitate; L89.322 Pressure ulcer of left buttock, stage 2; E67.3 Hypervitaminosis D; R59.0 Localized enlarged lymph nodes
CPT/HCPCS: 36415; 36416; 71045; 71250; 74176; 80053; 81003; 82306; 82310; 82330; 82340; 82436; 82542; 82550; 82570; 82607; 82652; 82746; 82962; 83540; 83550; 83605; 83735; 83880; 83970; 84100; 84133; 84145; 84300; 84443; 84590; 85025; 87040; 87426; 87641; 94664; 96372; 96374; 97161; 97530; 99285; J0630; J1644; J1815; J1956; J2185; J2270; J2405; J3489; J7030

== ENCOUNTER 2023-07-22 01:29 | Emergency (ER) | payer OTHER, SELFPAY ==
[2023-07-22 01:30] VITALS: BP 149/99; PULSE 119; RESP 16; TEMP 36.4; O2SAT 96; BMI 30.4
--- NOTE | 2023-07-22 01:38 | XRR_ITS ---
PROCEDURE INFORMATION: Exam: XR Chest Exam date and time: 07/22/2023 3:07 AM Age: 78 years old Clinical indication: Other: Fall; Additional info: Dyspnea TECHNIQUE: Imaging protocol: Radiologic exam of the chest. Views: 1 view. COMPARISON: 1. CR (CHEST, ) 07/17/2023 1:[address] [place] [id number] 07/15/2023 3:10 PM FINDINGS: Lungs: Slight improvement in left upper lobe consolidation since 07/17/2023. Right lung remains clear. Pleural spaces: No pneumothorax. No obvious pleural effusion. Heart/Mediastinum: Cardiomediastinal silhouette is stable, with sequelae from prior open heart surgery. Bones/joints: No acute osseous abnormality. XR/XR chest 1V portable [id number] IMPRESSION: Slight improvement in left upper lobe consolidation since 07/17/2023.
--- NOTE | 2023-07-22 01:38 | ECG_ITS ---
[facility] Test Date: 2023-07-22 Pat Name: Garcia Lundy Department: Room: Gender: Male [employer]: : [id number] Requested By: Asad Vitale Order Number: [id number] Amadou MD: Pedro Cuellar M.D. Measurements Intervals [place] Rate: 118 P: 0 NM: 0 QRS: -51 QRSD: 105 T: 66 QT: 331 QTc: 465 Interpretive Statements SUPRAVENTRICULAR TACHYCARDIA LEFT ANTERIOR FASCICULAR BLOCK [QRS AXIS <= -45, QR IN I, RS IN II] NONSPECIFIC ST & T-WAVE ABNORMALITY Compared to ECG 12/22/2021 20:04:47 T-wave abnormality now present Sinus tachycardia no longer present Electronically Signed On 07-22-2023 6:48:14 CDT by Pedro Cuellar M.D. [email or web address] [facility]ymer[facility] [email or web address] Builderclevel[facility] clinic [id number]
--- NOTE | 2023-07-22 01:39 | CTR_ITS ---
PROCEDURE INFORMATION: Exam: CT Head Without Contrast Exam date and time: 07/22/2023 2:52 AM Age: 78 years old Clinical indication: Injury or trauma; Blunt trauma (contusions or hematomas); Patient HX: Arrival via EMS for unwitnessed fall. History of dementia. History of metastatic prostate cancer. TECHNIQUE: Imaging protocol: Computed tomography of the head without contrast. Radiation optimization: All CT scans at this facility use at least one of these dose optimization techniques: automated exposure control; mA and/or kV adjustment per patient size (includes targeted exams where dose is matched to clinical indication); or iterative reconstruction. REPORTING DATA: Count of CT and Cardiac NM exams in prior 12 months: This patient has received 2 known CTs and 0 known cardiac nuclear medicine studies in the 12 months prior to the current study. COMPARISON: CT head wo contrast 12/22/2021 6:02 PM RADIATION DOSE METRICS: Total DLP (mGy-cm): 1160.78 FINDINGS: Brain: No acute intracranial hemorrhage, acute large territory infarct, or obvious mass lesion. Age appropriate diffuse cerebral volume loss. Chronic white matter changes, likely to be chronic small vessel ischemic changes. Old right occipital infarct. Cerebral ventricles: No ventriculomegaly. Paranasal sinuses: Visualized sinuses are unremarkable. No fluid levels. Mastoid air cells: Visualized mastoid air cells are well aerated. Bones/joints: Unremarkable. No acute fracture. Soft tissues: Unremarkable. Vasculature: Atherosclerotic calcification of the carotid siphons and cisternal vertebral arteries. CT/CT head wo con* [id number] IMPRESSION: No acute intracranial abnormality.
--- NOTE | 2023-07-22 01:47 | ED_ITS ---
Documented by User: DALE London 07/22/23 02:50 HPI - Fall General: Chief Complaint: Fall Stated Complaint: FAll Time Seen by Provider: 07/22/23 01:38 History of Present Illness: 78-year-old male patient comes in today for evaluation after a fall. Patient was found in the floor at the group home and was brought over by EMS for evaluation. Patient on evaluation noted to have elevated blood sugar in the 200s, oxygen saturation at 88% on room air, and mild tachycardia in the 110s. Review of history patient was treated for pneumonia and had been recently discharged from the hospital to halfway facility on the of this month. Patient was found to have a lung mass at the time of his pneumonia with COVID and was placed in halfway facility for persistent weakness and recovery post pneumonia. Patient is alert and responds appropriately to question. Patient does have some dementia at baseline. Patient did recall this provider when I had seen him back in January for a lipoma on his neck. Patient has a history of diabetes mellitus and chronic kidney disease. Associated symptoms-after fall: Denies chest pain or neck pain Review of Systems General: Reports: 10 or more systems reviewed and unremarkable except in HPI and below Card: Denies: chest pain Resp: Denies: dyspnea Musc: Denies: neck pain or back pain PFSH ED PFSH: Medical History Atherosclerotic heart disease of [place] coronary artery with unspecified angina pectoris Carotid artery disease CHF (congestive heart failure) Chronic kidney disease, stage III (moderate) Coronary artery disease due to type 2 diabetes mellitus Coronary stent occlusion Essential hypertension Gastro-esophageal reflux disease without esophagitis History of left common carotid artery stent placement History of lung cancer History of prostate cancer Hyperlipidemia, unspecified Low back pain Malignant neoplasm of bronchus Type 2 diabetes mellitus Type 2 diabetes mellitus with diabetic nephropathy Surgical History History of colonoscopy Internal carotid artery stent present Left-sided S/P CABG x 5 Family History Brother CHF (congestive heart failure) Mother Lymphoma Sister Cancer Father No problems noted. Social History Smoking and tobacco status: former smoker Quit status (tobacco): has quit using tobacco Year quit tobacco: 1984 Former quit date comment: Smoked 4.5 pack per day x 25 years Alcohol intake: former Substance/Drug Use: never Physical Exam Const: COMMON NORMALS: alert HENMT: COMMON NORMALS: normocephalic HEAD & SCALP: normocephalic Neck/C-Spine: COMMON NORMALS: full ROM Chest: COMMONS NORMALS: normal inspection of the chest Resp: COMMON NORMALS: normal respiratory effort AUSCULTATION: diminished lung sounds Cardio: RATE: tachycardic RHYTHM: abnormal rhythm GI: COMMON NORMALS: Soft to palpation and non-tender PALPATION: Yes Soft to palpation : COMMON NORMALS: Yes no CVA tenderness BLADDER/KIDNEY EXAM: Yes no CVA tenderness Back/Pelvis: COMMON NORMALS: no CVA tenderness SACRUM: other ([place] pad covering skin breakdown) Extremity: COMMON NORMALS: no pedal edema Neuro: SENSORIUM/ORIENTATION: Yes alert Skin: TRAUMA: abrasion (Left elbow) Course Vital Signs: Vital signs: Vital Signs Temperature 97.6 F 07/22/23 01:30 Pulse Rate 113 H 07/22/23 03:08 Respiratory Rate 26 H 07/22/23 03:08 Blood Pressure 158/108 07/22/23 03:08 Pulse Oximetry 92 07/22/23 03:08 Oxygen Delivery Me thod Room Air 07/22/23 03:08 MDM - Fall Medical Decision Making Patient was brought in from [facility] for evaluation of unwitnessed fall. Patient was found in the floor and was noted to have a oxygen level of 88% and that increased heart rate in the 110s. Patient reports generalized pain. Patient denies chest pain or shortness of breath. Patient does have a history of lung cancer. Differential diagnosis includes not limited to pneumonia, UTI, cachexia, ACS, intracranial bleeding. Lab Data 07/22/23 01:46 07/22/23 01:46 Radiology Impressions Chest X-Ray 07/22/23 01:38 IMPRESSION: Slight improvement in left upper lobe consolidation since 07/17/2023. Head CT 07/22/23 01:39 IMPRESSION: No acute intracranial abnormality. Pelvis X-Ray 07/22/23 02:32 IMPRESSION: No acute findings. Laboratory Results WBC 15.29 10^3/uL (3.29-11.43) H 07/22/23 01:46 RBC 4.09 10^6/uL (3.85-5.65) 07/22/23 01:46 Hgb 12.30 g/dL (11.27-16.99) 07/22/23 01:46 Hct 37.2 % (37-53) 07/22/23 01:46 MCV 91.0 fl (82-101) 07/22/23 01:46 MCH 30.1 pg (27-33) 07/22/23 01:46 MCHC 33.1 g/dL (30-55) 07/22/23 01:46 RDW 13.8 % (12.1-15.1) 07/22/23 01:46 Plt Count 431 10^3/cmm (157-399) H 07/22/23 01:46 MPV 11.3 fL (7.4-10.4) H 07/22/23 01:46 Neut % (Auto) 79.7 % 07/22/23 01:46 Lymph % (Auto) 8.9 % 07/22/23 01:46 [place] % (Auto) 8.0 % 07/22/23 01:46 Eos % (Auto) 1.0 % 07/22/23 01:46 Baso % (Auto) 0.6 % 07/22/23 01:46 Neut # (Auto) 12.18 10^3/uL (1.8-7.7) H 07/22/23 01:46 Lymph # (Auto) 1.4 10^3/uL (0.8-4.8) 07/22/23 01:46 [place] # (Auto) 1.2 10^3/uL (0.2-0.9) H 07/22/23 01:46 Eos # (Auto) 0.2 10^3/uL (0.0-0.8) 07/22/23 01:46 Baso # (Auto) 0.1 10^3/uL (0.0-0.1) 07/22/23 01:46 Nucleated RBC % (auto) 0 % 07/22/23 01:46 Nucleated RBCs # 0.0 /100WBC 07/22/23 01:46 Sodium 141 mmol/L (136-145) 07/22/23 01:46 Potassium 3.9 mmol/L (3.5-5.1) 07/22/23 01:46 Chloride 106 mmol/L (98-107) 07/22/23 01:46 Carbon Dioxide 25 mmol/L (22-29) 07/22/23 01:46 Anion Gap 13.9 (5-19) 07/22/23 01:46 BUN 35 mg/dL (8-23) H 07/22/23 01:46 Creatinine 1.7 mg/dL (0.7-1.2) H 07/22/23 01:46 GFR Calculation Not Reportable 07/22/23 01:46 Glucose 224 mg/dL (65-115) H 07/22/23 01:46 Calculated Osmolality 307 mOsm/kg (285-295) H 07/22/23 01:46 Calcium 10.9 mg/dL (8.5-10.5) H 07/22/23 01:46 Total Bilirubin 0.5 mg/dL (0.15-1.2) 07/22/23 01:46 AST 48 U/L (0-40) H 07/22/23 01:46 ALT 32 U/L (0-41) 07/22/23 01:46 Alkaline Phosphatase 124 U/L (40-130) 07/22/23 01:46 Troponin T Baseline 329 ng/L (0-15) H* 07/22/23 01:46 Troponin T 120 Minute 316.1 ng/L (0-15) H 07/22/23 03:40 Delta Troponin T -12.9 ABS# (0-10) L 07/22/23 03:40 Total Protein 6.4 g/dL (6.6-8.7) L 07/22/23 01:46 Albumin 3.2 g/dL (3.5-5.2) L 07/22/23 01:46 Globulin 3.2 g/dL (1.3-4.6) 07/22/23 01:46 EKG Data EKG 1: EKG interpretation date: 07/22/23 EKG interpretation time: 01:52 Prior EKG tracings: not available for review Interpretation: EKG shows a regular rhythm at [address] elevation or other ectopy is noted. No prior exam was available for comparison. Computer generated interpretation: Supraventricular tachycardia, left anterior fascicular block, nonspecific ST and T wave abnormality, abnormal EKG, unconfirmed report. Discharge Plan Discharge Patient Disposition: Home Clinical Impression: Fall Qualifiers: Encounter type: initial encounter Qualified Code(s): W19.XXXA - Unspecified fall, initial encounter Condition: Stable Prescriptions: No Action clopidogrel 75 mg tablet 75 mg PO DAILY Lantus Solostar U-100 Insulin 100 unit/mL (3 mL) insulin pen 16 unit SUBCUT DAILY magnesium citrate [Citrate of Magnesia] Solution 150 ml PO DAILY nitroglycerin 0.4 mg tablet, sublingual 0.4 mg sublingual Q5M PRN (Reason: chest pain) Qty: 20 3RF Rx Instructions: do not exceed 3 doses per episode Lasix 20 mg tablet 20 mg PO QAM Rx Instructions: Takes 1 extra PRN Glucagon Emergency Kit (human) 1 mg recon soln 1 mg SUBCUT Q20M PRN (Reason: hypoglycemia) Qty: 3 3RF Rx Instructions: until target blood sugar attained (DME) Compression stockings See Rx Instructions .Route .MEDSUPPLY Qty: 6 0RF Rx Instructions: As directed by [facility] ondansetron 4 mg tablet,disintegrating 4 mg translingual Q4H PRN (Reason: nausea) Qty: 5 0RF Rx Instructions: Dissolve 1 tablet under tongue every 4 hours PRN for nausea bisacodyl 10 mg suppository 10 mg IA DAILY PRN (Reason: constipation) Qty: 5 0RF Rx Instructions: 1 suppository per rectum every day PRN for constipation. lorazepam 2 mg/mL concentrate 2 mg sublingual Q4H PRN (Reason: Anxiety/Seizure) Qty: 30 0RF Rx Instructions: 0.25ml-1ml q4H PRN Anxiety/Seizure Start 0.25ml may increase to 0.5ml-1ml q4H morphine concentrate 100 mg/5 mL (20 mg/mL) solution 20 mg sublingual DIRECTED PRN (Reason: Pain/SOB) 14 Days Qty: 30 0RF Rx Instructions: 0.25ml-1ml q1H PRN may increase to 0.5ml-1ml Q1H PRN atropine 1 % drops 4 drp sublingual Q4H PRN (Reason: secretions) Qty: 5 0RF Rx Instructions: 4 drops SL q 4 hours PRN for terminal congestion/excessive secretions. multivitamin Tablet 1 tab PO DAILY albuterol sulfate 90 mcg/actuation HFA aerosol inhaler 2 inh inhalation Q8H PRN (Reason: shortness of breath or wheezing) Qty: 8.5 2RF alprazolam [Xanax] 0.5 mg tablet 0.5 mg PO BID PRN (Reason: anxiety) Qty: 7 0RF Vitamin C 500 mg tablet 1 g PO DAILY Novolog FlexPen U-100 Insulin 100 unit/mL (3 mL) insulin pen 10 unit SUBCUT TID potassium chloride 20 mEq tablet extended release 20 meq PO DAILY losartan 100 mg Tablet 100 mg PO DAILY cefdinir 300 mg capsule 300 mg PO BID 5 Days Qty: 10 0RF Discharge Orders: Discharge ED (Routine); Ordered 07/22/23 Ordered By: Ovi Long Referrals: Marcelo De Santiago DO [Primary Care Provider] - 1-3 days Discharge Diet: Advance as tolerated Discharge Activity: Resume usual activity Patient Instructions: Fall Prevention Coding Level of Care Code ED Nursing Home Manager for Chg Fwd Documented by User: Ovi Long MD 07/22/23 04:34 HPI - Fall General: Chief Complaint: Fall Stated Complaint: FAll Time Seen by Provider: 07/22/23 01:38 PFS ED PFSH: Medical History Atherosclerotic heart disease of [place] coronary artery with unspecified angina pectoris Carotid artery disease CHF (congestive heart failure) Chronic kidney disease, stage III (moderate) Coronary artery disease due to type 2 diabetes mellitus Coronary stent occlusion Essential hypertension Gastro-esophageal reflux disease without esophagitis History of left common carotid artery stent placement History of lung cancer History of prostate cancer Hyperlipidemia, unspecified Low back pain Malignant neoplasm of bronchus Type 2 diabetes mellitus Type 2 diabetes mellitus with diabetic nephropathy Surgical History History of colonoscopy Internal carotid artery stent present Left-sided S/P CABG x 5 Family History Brother CHF (congestive heart failure) Mother Lymphoma Sister Cancer Father No problems noted. Social History Smoking and tobacco status: former smoker Quit status (tobacco): has quit using tobacco Year quit tobacco: 1984 Former quit date comment: Smoked 4.5 pack per day x 25 years Alcohol intake: former Substance/Drug Use: never Course Vital Signs: Vital signs: Vital Signs Temperature 97.6 F 07/22/23 01:30 Pulse Rate 113 H 07/22/23 03:08 Respiratory Rate 26 H 07/22/23 03:08 Blood Pressure 158/108 07/22/23 03:08 Pulse Oximetry 92 07/22/23 03:08 Oxygen Delivery Me thod Room Air 07/22/23 03:08 MDM - Fall Medical Decision Making Patient was brought in from [facility] group home for evaluation of unwitnessed fall. Patient was found in the floor and was noted to have a oxygen level of 88% and that increased heart rate in the 110s. Patient reports generalized pain. Patient denies chest pain or shortness of breath. Patient does have a history of lung cancer. Differential diagnosis includes not limited to pneumonia, UTI, cachexia, ACS, intracranial bleeding. Patient's repeat troponin is trending down he does have chronic kidney disease likely causing the elevated troponin he states he feels much improved he does have a lung mass he is to follow-up with he is stable for discharge back to group home return if worsening no signs of acute coronary syndrome he had no chest pain Lab Data 07/22/23 01:46 07/22/23 01:46 Radiology Impressions Chest X-Ray 07/22/23 01:38 IMPRESSION: Slight improvement in left upper lobe consolidation since 07/17/2023. Head CT 07/22/23 01:39 IMPRESSION: No acute intracranial abnormality. Pelvis X-Ray 07/22/23 02:32 IMPRESSION: No acute findings. Laboratory Results WBC 15.29 10^3/uL (3.29-11.43) H 07/22/23 01:46 RBC 4.09 10^6/uL (3.85-5.65) 07/22/23 01:46 Hgb 12.30 g/dL (11.27-16.99) 07/22/23 01:46 Hct 37.2 % (37-53) 07/22/23 01:46 MCV 91.0 fl (82-101) 07/22/23 01:46 MCH 30.1 pg (27-33) 07/22/23 01:46 MCHC 33.1 g/dL (30-55) 07/22/23 01:46 RDW 13.8 % (12.1-15.1) 07/22/23 01:46 Plt Count 431 10^3/cmm (157-399) H 07/22/23 01:46 MPV 11.3 fL (7.4-10.4) H 07/22/23 01:46 Neut % (Auto) 79.7 % 07/22/23 01:46 Lymph % (Auto) 8.9 % 07/22/23 01:46 [place] % (Auto) 8.0 % 07/22/23 01:46 Eos % (Auto) 1.0 % 07/22/23 01:46 Baso % (Auto) 0.6 % 07/22/23 01:46 Neut # (Auto) 12.18 10^3/uL (1.8-7.7) H 07/22/23 01:46 Lymph # (Auto) 1.4 10^3/uL (0.8-4.8) 07/22/23 01:46 [place] # (Auto) 1.2 10^3/uL (0.2-0.9) H 07/22/23 01:46 Eos # (Auto) 0.2 10^3/uL (0.0-0.8) 07/22/23 01:46 Baso # (Auto) 0.1 10^3/uL (0.0-0.1) 07/22/23 01:46 Nucleated RBC % (auto) 0 % 07/22/23 01:46 Nucleated RBCs # 0.0 /100WBC 07/22/23 01:46 Sodium 141 mmol/L (136-145) 07/22/23 01:46 Potassium 3.9 mmol/L (3.5-5.1) 07/22/23 01:46 Chloride 106 mmol/L (98-107) 07/22/23 01:46 Carbon Dioxide 25 mmol/L (22-29) 07/22/23 01:46 Anion Gap 13.9 (5-19) 07/22/23 01:46 BUN 35 mg/dL (8-23) H 07/22/23 01:46 Creatinine 1.7 mg/dL (0.7-1.2) H 07/22/23 01:46 GFR Calculation Not Reportable 07/22/23 01:46 Glucose 224 mg/dL (65-115) H 07/22/23 01:46 Calculated Osmolality 307 mOsm/kg (285-295) H 07/22/23 01:46 Calcium 10.9 mg/dL (8.5-10.5) H 07/22/23 01:46 Total Bilirubin 0.5 mg/dL (0.15-1.2) 07/22/23 01:46 AST 48 U/L (0-40) H 07/22/23 01:46 ALT 32 U/L (0-41) 07/22/23 01:46 Alkaline Phosphatase 124 U/L (40-130) 07/22/23 01:46 Troponin T Baseline 329 ng/L (0-15) H* 07/22/23 01:46 Troponin T 120 Minute 316.1 ng/L (0-15) H 07/22/23 03:40 Delta Troponin T -12.9 ABS# (0-10) L 07/22/23 03:40 Total Protein 6.4 g/dL (6.6-8.7) L 07/22/23 01:46 Albumin 3.2 g/dL (3.5-5.2) L 07/22/23 01:46 Globulin 3.2 g/dL (1.3-4.6) 07/22/23 01:46 Discharge Plan Discharge Patient Disposition: Home Clinical Impression: Fall Qualifiers: Encounter type: initial encounter Qualified Code(s): W19.XXXA - Unspecified fall, initial encounter Condition: Stable Prescriptions: No Action clopidogrel 75 mg tablet 75 mg PO DAILY Lantus Solostar U-100 Insulin 100 unit/mL (3 mL) insulin pen 16 unit SUBCUT DAILY magnesium citrate [Citrate of Magnesia] Solution 150 ml PO DAILY nitroglycerin 0.4 mg tablet, sublingual 0.4 mg sublingual Q5M PRN (Reason: chest pain) Qty: 20 3RF Rx Instructions: do not exceed 3 doses per episode Lasix 20 mg tablet 20 mg PO QAM Rx Instructions: Takes 1 extra PRN Glucagon Emergency Kit (human) 1 mg recon soln 1 mg SUBCUT Q20M PRN (Reason: hypoglycemia) Qty: 3 3RF Rx Instructions: until target blood sugar attained (DME) Compression stockings See Rx Instructions .Route .MEDSUPPLY Qty: 6 0RF Rx Instructions: As directed by [facility] ondansetron 4 mg tablet,disintegrating 4 mg translingual Q4H PRN (Reason: nausea) Qty: 5 0RF Rx Instructions: Dissolve 1 tablet under tongue every 4 hours PRN for nausea bisacodyl 10 mg suppository 10 mg IA DAILY PRN (Reason: constipation) Qty: 5 0RF Rx Instructions: 1 suppository per rectum every day PRN for constipation. lorazepam 2 mg/mL concentrate 2 mg sublingual Q4H PRN (Reason: Anxiety/Seizure) Qty: 30 0RF Rx Instructions: 0.25ml-1ml q4H PRN Anxiety/Seizure Start 0.25ml may increase to 0.5ml-1ml q4H morphine concentrate 100 mg/5 mL (20 mg/mL) solution 20 mg sublingual DIRECTED PRN (Reason: Pain/SOB) 14 Days Qty: 30 0RF Rx Instructions: 0.25ml-1ml q1H PRN may increase to 0.5ml-1ml Q1H PRN atropine 1 % drops 4 drp sublingual Q4H PRN (Reason: secretions) Qty: 5 0RF Rx Instructions: 4 drops SL q 4 hours PRN for terminal congestion/excessive secretions. multivitamin Tablet 1 tab PO DAILY albuterol sulfate 90 mcg/actuation HFA aerosol inhaler 2 inh inhalation Q8H PRN (Reason: shortness of breath or wheezing) Qty: 8.5 2RF alprazolam [Xanax] 0.5 mg tablet 0.5 mg PO BID PRN (Reason: anxiety) Qty: 7 0RF Vitamin C 500 mg tablet 1 g PO DAILY Novolog FlexPen U-100 Insulin 100 unit/mL (3 mL) insulin pen 10 unit SUBCUT TID potassium chloride 20 mEq tablet extended release 20 meq PO DAILY losartan 100 mg Tablet 100 mg PO DAILY cefdinir 300 mg capsule 300 mg PO BID 5 Days Qty: 10 0RF Discharge Orders: Discharge ED (Routine); Ordered 07/22/23 Ordered By: Ovi Long Referrals: Marcelo De Santiago DO [Primary Care Provider] - 1-3 days Discharge Diet: Advance as tolerated Discharge Activity: Resume usual activity Patient Instructions: Fall Prevention Coding Level of Care Code ED Nursing Home Manager for Brandon Jaime
[2023-07-22 01:52] LABS: Basophils # 0.1 10^3/uL (0.0-0.1); Basophils % 0.6 %; Eosinophils # 0.2 10^3/uL (0.0-0.8); Hematocrit 37.2 % (37-53); Lymphocytes # 1.4 10^3/uL (0.8-4.8); Lymphocytes % 8.9 %; Mean Corpuscular HGB Conc 33.1 g/dL (30-55); Mean Corpuscular Hemoglobin 30.1 pg (27-33); Mean Platelet Volume 11.3 fL (7.4-10.4); Monocytes # 1.2 10^3/uL (0.2-0.9); Neutrophils # 12.18 10^3/uL (1.8-7.7); Neutrophils % 79.7 %; Nucleated Red Blood Cells % 0 %; Platelet Count 431 10^3/cmm (157-399); Red Blood Count 4.09 10^6/uL (3.85-5.65); Red Cell Distribution Width 13.8 % (12.1-15.1); White Blood Count 15.29 10^3/uL (3.29-11.43)
[2023-07-22 02:13] LABS: Alanine Aminotransferase 32 U/L (0-41); Albumin Level 3.2 g/dL (3.5-5.2); Alkaline Phosphatase 124 U/L (40-130); Anion Gap 13.9 (5-19); Aspartate Amino Transferase 48 U/L (0-40); Blood Urea Nitrogen 35 mg/dL (8-23); Calcium 10.9 mg/dL (8.5-10.5); Carbon Dioxide 25 mmol/L (22-29); Chloride 106 mmol/L (98-107); Globulin 3.2 g/dL (1.3-4.6); Glucose 224 mg/dL (65-115); Osmolality Calculated 307 mOsm/kg (285-295); Potassium 3.9 mmol/L (3.5-5.1); Sodium 141 mmol/L (136-145); Total Bilirubin 0.5 mg/dL (0.15-1.2); Total Protein 6.4 g/dL (6.6-8.7)
[2023-07-22 02:14] LABS: Troponin(5th) Baseline 329 ng/L (0-15)
--- NOTE | 2023-07-22 02:32 | XRR_ITS ---
PROCEDURE INFORMATION: Exam: XR Pelvis Exam date and time: 07/22/2023 3:02 AM Age: 78 years old Clinical indication: Injury or trauma; Fall; Blunt trauma (contusions or hematomas); Does not apply; Pelvic region TECHNIQUE: Imaging protocol: Radiologic exam of the pelvis. Views: 1 or 2 view. COMPARISON: [place] [id number] 07/15/2023 3:10 PM FINDINGS: Tubes, catheters and devices: Brachytherapy seeds again seen in the region of the prostate. Bones/joints: No acute fracture or dislocation. Soft tissues: Unremarkable. XR/XR pelvis 1-2V* [id number] IMPRESSION: No acute findings.
[2023-07-22 03:08] VITALS: BP 158/108; PULSE 113; RESP 26; O2SAT 92
--- NOTE | 2023-07-22 04:06 | PC.NURSE ---
Attempted to contact Daughter Jacqueline. Left a message for return call.
[2023-07-22 04:23] LABS: Troponin 5 2HR Delta -12.9 ABS# (0-10)
[2023-07-22 04:24] LABS: Troponin 5 2HR 316.1 ng/L (0-15)
[2023-07-22 04:30] VITALS: BP 168/123; PULSE 112; RESP 22; O2SAT 93
[2023-07-22 06:00] VITALS: PULSE 124; RESP 15; O2SAT 95
[2023-07-22 07:46] VITALS: PULSE 91; RESP 18; O2SAT 89
== END 2023-07-22 07:47 | disposition home or self-care (01) ==
PROVIDERS: Nurse Practitioner Family; Emergency Provider Emergency Medicine; PCP Emergency Medicine Emergency Medical Services
DX: R00.0 Tachycardia, unspecified (principal); Z79.02 Long term (current) use of antithrombotics/antiplatelets; Z79.4 Long term (current) use of insulin; E11.22 Type 2 diabetes mellitus with diabetic chronic kidney disease; I13.0 Hypertensive heart and chronic kidney disease with heart failure and stage 1 through stage 4 chronic kidney disease, or unspecified chronic kidney disease; N18.30 Chronic kidney disease, stage 3 unspecified; I50.9 Heart failure, unspecified; I25.10 Atherosclerotic heart disease of native coronary artery without angina pectoris; Z85.118 Personal history of other malignant neoplasm of bronchus and lung; Z85.46 Personal history of malignant neoplasm of prostate; E78.5 Hyperlipidemia, unspecified; Z95.1 Presence of aortocoronary bypass graft; Z87.891 Personal history of nicotine dependence; W19.XXXA Unspecified fall, initial encounter; Y92.129 Unspecified place in nursing home as the place of occurrence of the external cause
CPT/HCPCS: 70450; 71045; 72170; 80053; 84484; 85025; 93005; 99285

== ENCOUNTER 2023-07-24 20:32 | Observation (INO) | payer OTHER, SELFPAY ==
[2023-07-24] VITALS (7 sets, daily range): BP systolic 130–153; BP diastolic 78–119; PULSE 122–129; RESP 17–24; TEMP 37.9; O2SAT 90–96; BMI 30.4
--- NOTE | 2023-07-24 20:36 | ECG_ITS ---
[facility] Test Date: 2023-07-24 Pat Name: Garcia Lundy Department: Room: Gender: Male [employer]: : 1945 Requested By: Leland Terry Order Number: [id number] Amadou MD: Pedro Cuellar M.D. Measurements Intervals [place] Rate: 126 P: 50 [place]: 160 QRS: -36 QRSD: 104 T: 75 QT: 297 QTc: 430 Interpretive Statements SINUS TACHYCARDIA LEFT AXIS DEVIATION [QRS AXIS < -30] LEFT VENTRICULAR HYPERTROPHY AND ST-T CHANGE [VOLTAGE CRITERIA PLUS ST/T ABNORMALITY] Compared to ECG 07/22/2023 01:41:51 Left-axis deviation now present Left ventricular hypertrophy now present ST (T wave) deviation now present Supraventricular tachycardia no longer present Left anterior fascicular block no longer present T-wave abnormality no longer present Electronically Signed On 07-25-2023 9:28:51 CDT by Pedro Cuellar M.D. [email or web address]
--- NOTE | 2023-07-24 20:49 | CTR_ITS ---
PROCEDURE INFORMATION: Exam: CT Head Without Contrast Exam date and time: 07/24/2023 9:43 PM Age: 78 years old Clinical indication: Injury or trauma; Blunt trauma (contusions or hematomas); Altered mental status/memory loss; Patient HX: EMS arrival from intermediate for fall. Patient lethargic and non verbal. Anticoagulated. History of dementia and metastatic lung cancer. ; Additional info: AMS on thinners w/ fall TECHNIQUE: Imaging protocol: Computed tomography of the head without contrast. Radiation optimization: All CT scans at this facility use at least one of these dose optimization techniques: automated exposure control; mA and/or kV adjustment per patient size (includes targeted exams where dose is matched to clinical indication); or iterative reconstruction. REPORTING DATA: Count of CT and Cardiac NM exams in prior 12 months: This patient has received 3 known CTs and 0 known cardiac nuclear medicine studies in the 12 months prior to the current study. COMPARISON: CT head wo con* [id number] 07/22/2023 2:52 AM RADIATION DOSE METRICS: Total DLP (mGy-cm): 881.88 FINDINGS: Brain: Normal. No hemorrhage. Unremarkable white matter. No mass effect. Cerebral ventricles: No ventriculomegaly. Paranasal sinuses: Visualized sinuses are unremarkable. No fluid levels. Mastoid air cells: Visualized mastoid air cells are well aerated. Bones/joints: Unremarkable. No acute fracture. Soft tissues: Left frontal scalp soft tissue swelling. CT/CT head wo con* [id number] IMPRESSION: No acute intracranial abnormality.
--- NOTE | 2023-07-24 20:49 | XRR_ITS ---
PROCEDURE INFORMATION: Exam: XR Chest Exam date and time: 07/24/2023 9:15 PM Age: 78 years old Clinical indication: Fever and shortness of breath; Additional info: Fever w/sob/ams TECHNIQUE: Imaging protocol: Radiologic exam of the chest. Views: 1 view. COMPARISON: CR (CHEST, ) 07/22/2023 3:07 AM FINDINGS: Lungs: Left upper lobe pneumonia. Emphysematous changes. Pleural spaces: Unremarkable. No pleural effusion. No pneumothorax. Heart/Mediastinum: Cardiomegaly. Bones/joints: Sternotomy wires. XR/XR chest 1V portable [id number] IMPRESSION: 1. Left upper lobe pneumonia. 2. Cardiomegaly. 3. Emphysematous changes.
[2023-07-24 20:53] LABS: Glucose Point of Care > 600 mg/dL (70-110)
[2023-07-24 20:53] LABS: Glucose Point of Care > 600 mg/dL (70-110)
[2023-07-24 21:21] LABS: ABG PCO2 42.9 mmHg (35-45); ABG PH Result 7.39 (7.35-7.45); Arterial Blood Gas Hematocrit 35.2 % (42-52); Base Excess ABG 0.5 mmol/L (-2.0-2.0); Blood Gas Allen Test Pos; Blood Gas Sample Site Radial, right; Blood Gas Sample Type Arterial; HCO3 ABG 25.7 mmol/L (22-26); Oxygen Device NC
[2023-07-24 21:28] LABS: Basophils % 0.2 %; Hematocrit 36.9 % (37-53); Lymphocytes # 0.8 10^3/uL (0.8-4.8); Lymphocytes % 4.1 %; Mean Corpuscular HGB Conc 32.2 g/dL (30-55); Mean Corpuscular Hemoglobin 30.1 pg (27-33); Mean Corpuscular Volume 93.2 fl (82-101); Mean Platelet Volume 11.9 fL (7.4-10.4); Monocytes % 5.3 %; Neutrophils # 17.53 10^3/uL (1.8-7.7); Neutrophils % 89.6 %; Nucleated Red Blood Cells % 0 %; Platelet Count 398 10^3/cmm (157-399); Red Blood Count 3.96 10^6/uL (3.85-5.65); Red Cell Distribution Width 14.3 % (12.1-15.1); White Blood Count 19.56 10^3/uL (3.29-11.43)
--- NOTE | 2023-07-24 21:38 | W.ED.AMS ---
Documented by User: Leland Terry 07/24/23 23:11 HPI - Altered Mental Status General: Chief Complaint: Altered Mental Status Stated Complaint: Fall Time Seen by Provider: 07/24/23 20:37 History of Present Illness: 78-year-old male presents to the emergency department chief complaint of generalized altered mental status as well as fever. Patient is a known type I diabetic he is fpc which his sugars were found to be elevated. Patient apparently has had a chronic history of a decubitus ulcer noted to his buttocks has been drinking the perirectal region patient has recently been treated for pneumonia outpatient. Patient apparently has had increased confusion and fever that started tonight. Unclear whether or not the patient started antibiotics or any other recent medication changes as his history is limited by provided by him as well as EMS Review of Systems General: Reports: ROS unobtainable due to medical condition and ROS unobtainable due to mental status [facility] PFSH: Medical History Atherosclerotic heart disease of [place] coronary artery with unspecified angina pectoris Carotid artery disease CHF (congestive heart failure) Chronic kidney disease, stage III (moderate) Coronary artery disease due to type 2 diabetes mellitus Coronary stent occlusion Decubitus ulcer Essential hypertension Gastro-esophageal reflux disease without esophagitis History of left common carotid artery stent placement History of lung cancer History of prostate cancer Hyperlipidemia, unspecified Hypervitaminosis D Low back pain Malignant neoplasm of bronchus Mass of upper lobe of left lung Metastasis to liver Physical deconditioning Type 2 diabetes mellitus Type 2 diabetes mellitus with diabetic nephropathy Surgical History History of colonoscopy Internal carotid artery stent present Left-sided S/P CABG x 5 Family History Brother CHF (congestive heart failure) Mother Lymphoma Sister Cancer Father No problems noted. Social History Smoking and tobacco status: former smoker Quit status (tobacco): has quit using tobacco Year quit tobacco: 1984 Former quit date comment: Smoked 4.5 pack per day x 25 years Alcohol intake: former Substance/Drug Use: never Physical Exam Const: COMMON NORMALS: no acute distress and healthy appearing; negative for patient oriented x3 (Patient appears to be confused and disoriented on exam and febrile) HENMT: COMMON NORMALS: normocephalic and atraumatic HEAD & SCALP: normocephalic and atraumatic Eye: COMMON NORMALS: Equal, round and reactive pupils present and EOMs intact bilaterally PUPIL: Yes Equal, round and reactive pupils present Neck/C-Spine: COMMON NORMALS: full ROM, supple and no JVD Lymph: LYMPHATIC: no lymphadenopathy noted Chest: COMMONS NORMALS: normal inspection of the chest and normal palpation of entire chest wall Resp: COMMON NORMALS: No retractions and clear to auscultation bilaterally; negative for normal respiratory effort (Diminished breath sounds appreciated bilaterally with mild expiratory wheez) EFFORT & INSPECTION: Yes able to speak in complete sentences and Yes symmetric chest movement AUSCULTATION: clear to auscultation bilaterally Cardio: COMMON NORMALS: no JVD and regular rhythm; negative for regular rate (Tachycardic on exam sinus) RATE: abnormal rate (Tachycardic on exam sinus) RHYTHM: regular rhythm GI: COMMON NORMALS: Normal to inspection, nondistended, normoactive bowel sounds present, Soft to palpation and non-tender INSPECTION: Yes normal to inspection PALPATION: Yes Soft to palpation : COMMON NORMALS: Yes no CVA tenderness BLADDER/KIDNEY EXAM: Yes no CVA tenderness Back/Pelvis: COMMON NORMALS: no CVA tenderness Extremity: COMMON NORMALS: normal to inspection and full ROM Neuro: COMMON NORMALS: CN's II-XII intact bilaterally, moves all extremities and no focal motor deficits; negative for patient oriented x3 (Patient appears to be confused and disoriented on exam and febrile) Psych: COMMON NORMALS: mental status grossly normal, Normal thought process present, cooperative and normal affect THOUGHT PROCESS: Normal thought process present Skin: COMMON NORMALS: no rashes or lesions noted GENERAL SKIN EXAM: no rashes or lesions noted Const: COMMON NORMALS: no acute distress and healthy appearing; negative for patient oriented x3 (Patient appears to be confused and disoriented on exam and febrile) HENMT: COMMON NORMALS: normocephalic and atraumatic HEAD & SCALP: normocephalic and atraumatic Eye: COMMON NORMALS: Equal, round and reactive pupils present and EOMs intact bilaterally PUPIL: Yes Equal, round and reactive pupils present Neck/C-Spine: COMMON NORMALS: full ROM, supple and no JVD Lymph: LYMPHATIC: no lymphadenopathy noted Chest: COMMONS NORMALS: normal inspection of the chest and normal palpation of entire chest wall Resp: COMMON NORMALS: No retractions and clear to auscultation bilaterally; negative for normal respiratory effort (Diminished breath sounds appreciated bilaterally with mild expiratory wheez) EFFORT & INSPECTION: Yes able to speak in complete sentences and Yes symmetric chest movement AUSCULTATION: clear to auscultation bilaterally Cardio: COMMON NORMALS: no JVD and regular rhythm; negative for regular rate (Tachycardic on exam sinus) RATE: abnormal rate (Tachycardic on exam sinus) RHYTHM: regular rhythm GI: COMMON NORMALS: Normal to inspection, nondistended, normoactive bowel sounds present, Soft to palpation and non-tender INSPECTION: Yes normal to inspection PALPATION: Yes Soft to palpation : COMMON NORMALS: Yes no CVA tenderness BLADDER/KIDNEY EXAM: Yes no CVA tenderness Back/Pelvis: COMMON NORMALS: no CVA tenderness Extremity: COMMON NORMALS: normal to inspection and full ROM Neuro: COMMON NORMALS: CN's II-XII intact bilaterally, moves all extremities and no focal motor deficits; negative for patient oriented x3 (Patient appears to be confused and disoriented on exam and febrile) Psych: COMMON NORMALS: mental status grossly normal, Normal thought process present, cooperative and normal affect THOUGHT PROCESS: Normal thought process present Skin: COMMON NORMALS: no rashes or lesions noted GENERAL SKIN EXAM: no rashes or lesions noted Course Vital Signs: Vital signs: Vital Signs Temperature 100.2 F H 07/24/23 20:33 Pulse Rate 128 H 07/24/23 22:27 Respiratory Rate 24 H 07/24/23 22:27 Blood Pressure 152/99 07/24/23 22:00 Pulse Oximetry 92 07/24/23 22:27 Oxygen Delivery Me thod Nasal Cannula 07/24/23 22:27 Oxygen Flow Rate 3 07/24/23 22:27 MDM - Altered Mental Status Medical Decision Making Due to patient's symptoms and condition like concerns of sepsis is prominent patient has a prior history of decubitus ulcer as well as pneumonia we will continue to follow the following sepsis protocol. Appears to have a recurrent pneumonia left side concern for sepsis with nonketotic hyperglycemia and diabetes patient was given 10 units of insulin. Patient does have a white count of 19,000 he was started on Rocephin for the pneumonia. Discussed the patient's case with Dr. Abdi hospitalist which will come to the ER to evaluate the patient upon further investigation patient had sustained a fall earlier today complaining of left hip pain in which a x-ray will be obtained plain films look unremarkable per my eyes. This patient will be signed out to Dr. Long pending admission versus hospice versus discharge status Lab Data 07/24/23 21:03 07/24/23 21:03 Radiology Impressions Chest X-Ray 07/24/23 20:49 IMPRESSION: 1. Left upper lobe pneumonia. 2. Cardiomegaly. 3. Emphysematous changes. Head CT 07/24/23 20:49 IMPRESSION: No acute intracranial abnormality. Hip/Pelvis X-Ray 07/24/23 22:46 IMPRESSION: 1. Mild osteoarthritis of the hips bilaterally. 2. Radiation treatment seeds over the prostate gland. 3. Scattered vascular calcifications. Laboratory Results WBC 19.56 10^3/uL (3.29-11.43) H 07/24/23 21:03 RBC 3.96 10^6/uL (3.85-5.65) 07/24/23 21:03 Hgb 11.90 g/dL (11.27-16.99) 07/24/23 21:03 Hct 36.9 % (37-53) L 07/24/23 21:03 MCV 93.2 fl (82-101) 07/24/23 21:03 MCH 30.1 pg (27-33) 07/24/23 21: MCHC 32.2 g/dL (30-55) 07/24/23 21:03 RDW 14.3 % (12.1-15.1) 07/24/23 21:03 Plt Count 398 10^3/cmm (157-399) 07/24/23 21:03 MPV 11.9 fL (7.4-10.4) H 07/24/23 21:03 Neut % (Auto) 89.6 % 07/24/23 21:03 Lymph % (Auto) 4.1 % 07/24/23 21: Wells % (Auto) 5.3 % 07/24/23 21: Eos % (Auto) 0.0 % 07/24/23 21: Baso % (Auto) 0.2 % 07/24/23 21:03 Neut # (Auto) 17.53 10^3/uL (1.8-7.7) H 07/24/23 21:03 Lymph # (Auto) 0.8 10^3/uL (0.8-4.8) 07/24/23 21:03 Wells # (Auto) 1.0 10^3/uL (0.2-0.9) H 07/24/23 21:03 Eos # (Auto) 0.0 10^3/uL (0.0-0.8) 07/24/23 21:03 Baso # (Auto) 0.0 10^3/uL (0.0-0.1) 07/24/23 21:03 Nucleated RBC % (auto) 0 % 07/24/23 21:03 Nucleated RBCs # 0.0 /100WBC 07/24/23 21:03 PT 15.10 SECONDS (12.1-14.9) H 07/24/23 21:03 INR 1.16 (0.8-1.2) 07/24/23 21:03 Specimen Type Arterial 07/24/23 21:10 Sample Site Radial, right 07/24/23 21:10 ABG pH 7.39 (7.35-7.45) 07/24/23 21:10 ABG pCO2 42.9 mmHg (35-45) 07/24/23 21:10 ABG pO2 43.0 mmHg (80.0-100.0) L 07/24/23 21:10 ABG HCO3 25.7 mmol/L (22-26) 07/24/23 21:10 ABG Base Excess 0.5 mmol/L (-2.0-2.0) 07/24/23 21:10 Get Test Pos 07/24/23 21:10 Hematocrit 35.2 % (42-52) L 07/24/23 21:10 Hgb O2 Saturation 88.8 % (95-100) L 07/24/23 20:49 Carboxyhemoglobin 0.4 %THgb (0.4-20.1) 07/24/23 20:49 Methemoglobin 0.6 % (0.4-1.5) 07/24/23 20:49 Total Hemoglobin 11.1 g/dL (14-18) L 07/24/23 20:49 O2 Delivery Device Nc 07/24/23 21:10 O2 Liters/Min 3.0 % 07/24/23 21:10 FiO2 32.0 % 07/24/23 21:10 Metal Bonding Press Operator ID Allie 07/24/23 21:10 Sodium 137 mmol/L (136-145) 07/24/23 21:03 Potassium 4.4 mmol/L (3.5-5.1) 07/24/23 21:03 Chloride 103 mmol/L (98-107) 07/24/23 21:03 Carbon Dioxide 25 mmol/L (22-29) 07/24/23 21:03 Anion Gap 13.4 (5-19) 07/24/23 21:03 BUN 45 mg/dL (8-23) H 07/24/23 21:03 Creatinine 2.1 mg/dL (0.7-1.2) H 07/24/23 21:03 GFR Calculation Not Reportable 07/24/23 21:03 Glucose 614 mg/dL (65-115) H* 07/24/23 21:03 POC Glucose > 600 mg/dL (70-110) H* 07/24/23 20:48 Calculated Osmolality 324 mOsm/kg (285-295) H 07/24/23 21:03 Lactic Acid 1.6 mmol/L (0.5-2.2) 07/24/23 21:03 Calcium 12.0 mg/dL (8.5-10.5) H 07/24/23 21:03 Total Bilirubin 0.4 mg/dL (0.15-1.2) 07/24/23 21:03 AST 21 U/L (0-40) 07/24/23 21:03 ALT 20 U/L (0-41) 07/24/23 21:03 Alkaline Phosphatase 171 U/L (40-130) H 07/24/23 21:03 Troponin T Baseline 489 ng/L (0-15) H* 07/24/23 21:03 C-Reactive Protein 247.1 mg/L (0.0-4.9) H 07/24/23 21:03 NT-Pro-B Natriuret Pep 8113 pg/mL (0-450) H 07/24/23 21:03 Total Protein 6.3 g/dL (6.6-8.7) L 07/24/23 21:03 Albumin 2.7 g/dL (3.5-5.2) L 07/24/23 21:03 Globulin 3.6 g/dL (1.3-4.6) 07/24/23 21:03 Lipase 30 U/L (13-60) 07/24/23 21:03 Serum Ketones Negative (Negative) 07/24/23 21:03 Discharge Plan Discharge Patient Disposition: Admitted As Inpatient Clinical Impression: Altered mental status, Hyperglycemia, Lung mass Condition: Stable Prescriptions: No Action clopidogrel 75 mg tablet 75 mg PO DAILY Lantus Solostar U-100 Insulin 100 unit/mL (3 mL) insulin pen 16 unit SUBCUT DAILY magnesium citrate [Citrate of Magnesia] Solution 150 ml PO DAILY nitroglycerin 0.4 mg tablet, sublingual 0.4 mg sublingual Q5M PRN (Reason: chest pain) Qty: 20 3RF Rx Instructions: do not exceed 3 doses per episode Lasix 20 mg tablet 20 mg PO QAM Rx Instructions: Takes 1 extra PRN Glucagon Emergency Kit (human) 1 mg recon soln 1 mg SUBCUT Q20M PRN (Reason: hypoglycemia) Qty: 3 3RF Rx Instructions: until target blood sugar attained (DME) Compression stockings See Rx Instructions .Route .MEDSUPPLY Qty: 6 0RF Rx Instructions: As directed by [facility] ondansetron 4 mg tablet,disintegrating 4 mg translingual Q4H PRN (Reason: nausea) Qty: 5 0RF Rx Instructions: Dissolve 1 tablet under tongue every 4 hours PRN for nausea bisacodyl 10 mg suppository 10 mg NM DAILY PRN (Reason: constipation) Qty: 5 0RF Rx Instructions: 1 suppository per rectum every day PRN for constipation. lorazepam 2 mg/mL concentrate 2 mg sublingual Q4H PRN (Reason: Anxiety/Seizure) Qty: 30 0RF Rx Instructions: 0.25ml-1ml q4H PRN Anxiety/Seizure Start 0.25ml may increase to 0.5ml-1ml q4H morphine concentrate 100 mg/5 mL (20 mg/mL) solution 20 mg sublingual DIRECTED PRN (Reason: Pain/SOB) 14 Days Qty: 30 0RF Rx Instructions: 0.25ml-1ml q1H PRN may increase to 0.5ml-1ml Q1H PRN atropine 1 % drops 4 drp sublingual Q4H PRN (Reason: secretions) Qty: 5 0RF Rx Instructions: 4 drops SL q 4 hours PRN for terminal congestion/excessive secretions. multivitamin Tablet 1 tab PO DAILY albuterol sulfate 90 mcg/actuation HFA aerosol inhaler 2 inh inhalation Q8H PRN (Reason: shortness of breath or wheezing) Qty: 8.5 2RF alprazolam [Xanax] 0.5 mg tablet 0.5 mg PO BID PRN (Reason: anxiety) Qty: 7 0RF Vitamin C 500 mg tablet 1 g PO DAILY insulin aspart U-100 [Novolog FlexPen U-100 Insulin] 100 unit/mL (3 mL) insulin pen 10 unit SUBCUT TID potassium chloride 20 mEq tablet extended release 20 meq PO DAILY losartan 100 mg Tablet 100 mg PO QPM Tylenol 325 mg Tablet 650 mg PO QID PRN (Reason: pain) hydrocodone-acetaminophen 5-325 mg Tablet 1 tab PO Q4H PRN (Reason: Pain) Referrals: Marcelo DeS antiago DO [Primary Care Provider] - Patient Instructions: Hyponatremia (ED), Benzodiazepine Use Disorder (ED), Dementia (ED), Non-diabetic Hypoglycemia (ED), Hypoglycemia in a Person with Diabetes (ED), Concussion (ED), Alcohol Intoxication (ED), Subarachnoid Hemorrhage (GEN), Altered Mental Status (ED) Coding Level of Care Code ED Sharepoint Admin for Chg Fwd Documented by User: Ovi Long MD 07/24/23 23:46 HPI - Altered Mental Status General: Chief Complaint: Altered Mental Status Stated Complaint: Fall Time Seen by Provider: 07/24/23 20:37 PFSH ED PFSH: Medical History Atherosclerotic heart disease of [place] coronary artery with unspecified angina pectoris Carotid artery disease CHF (congestive heart failure) Chronic kidney disease, stage III (moderate) Coronary artery disease due to type 2 diabetes mellitus Coronary stent occlusion Decubitus ulcer Essential hypertension Gastro-esophageal reflux disease without esophagitis History of left common carotid artery stent placement History of lung cancer History of prostate cancer Hyperlipidemia, unspecified Hypervitaminosis D Low back pain Malignant neoplasm of bronchus Mass of upper lobe of left lung Metastasis to liver Physical deconditioning Type 2 diabetes mellitus Type 2 diabetes mellitus with diabetic nephropathy Surgical History History of colonoscopy Internal carotid artery stent present Left-sided S/P CABG x 5 Family History Brother CHF (congestive heart failure) Mother Lymphoma Sister Cancer Father No problems noted. Social History Smoking and tobacco status: former smoker Quit status (tobacco): has quit using tobacco Year quit tobacco: 1984 Former quit date comment: Smoked 4.5 pack per day x 25 years Alcohol intake: former Substance/Drug Use: never Course Vital Signs: Vital signs: Vital Signs Temperature 100.2 F H 07/24/23 20:33 Pulse Rate 128 H 07/24/23 22:27 Respiratory Rate 24 H 07/24/23 22:27 Blood Pressure 152/99 07/24/23 22:00 Pulse Oximetry 92 07/24/23 22:27 Oxygen Delivery Me thod Nasal Cannula 07/24/23 22:27 Oxygen Flow Rate 3 07/24/23 22:27 MDM - Altered Mental Status Medical Decision Making Due to patient's symptoms and condition like concerns of sepsis is prominent patient has a prior history of decubitus ulcer as well as pneumonia we will continue to follow the following sepsis protocol. Appears to have a recurrent pneumonia left side concern for sepsis with nonketotic hyperglycemia and diabetes patient was given 10 units of insulin. Patient does have a white count of 19,000 he was started on Rocephin for the pneumonia. Discussed the patient's case with Dr. Abdi hospitalist which will come to the ER to evaluate the patient upon further investigation patient had sustained a fall earlier today complaining of left hip pain in which a x-ray will be obtained plain films look unremarkable per my eyes. This patient will be signed out to Dr. Ethan pending admission versus hospice versus discharge status Patient presents here with confusion he does have hyperglycemia also lung mass patient was seen by hospitalist who spoke to family's plan on placing on the hospitalist will admit her at this time Lab Data 07/24/23 21:03 07/24/23 21:03 Radiology Impressions Chest X-Ray 07/24/23 20:49 IMPRESSION: 1. Left upper lobe pneumonia. 2. Cardiomegaly. 3. Emphysematous changes. Head CT 07/24/23 20:49 IMPRESSION: No acute intracranial abnormality. Hip/Pelvis X-Ray 07/24/23 22:46 IMPRESSION: 1. Mild osteoarthritis of the hips bilaterally. 2. Radiation treatment seeds over the prostate gland. 3. Scattered vascular calcifications. Laboratory Results WBC 19.56 10^3/uL (3.29-11.43) H 07/24/23 21:03 RBC 3.96 10^6/uL (3.85-5.65) 07/24/23 21:03 Hgb 11.90 g/dL (11.27-16.99) 07/24/23 21:03 Hct 36.9 % (37-53) L 07/24/23 21:03 MCV 93.2 fl (82-101) 07/24/23 21:03 MCH 30.1 pg (27-33) 07/24/23 21:03 MCHC 32.2 g/dL (30-55) 07/24/23 21:03 RDW 14.3 % (12.1-15.1) 07/24/23 21:03 Plt Count 398 10^3/cmm (157-399) 07/24/23 21:03 MPV 11.9 fL (7.4-10.4) H 07/24/23 21:03 Neut % (Auto) 89.6 % 07/24/23 21:03 Lymph % (Auto) 4.1 % 07/24/23 21:03 Wells % (Auto) 5.3 % 07/24/23 21:03 Eos % (Auto) 0.0 % 07/24/23 21:03 Baso % (Auto) 0.2 % 07/24/23 21:03 Neut # (Auto) 17.53 10^3/uL (1.8-7.7) H 07/24/23 21:03 Lymph # (Auto) 0.8 10^3/uL (0.8-4.8) 07/24/23 21:03 Wells # (Auto) 1.0 10^3/uL (0.2-0.9) H 07/24/23 21:03 Eos # (Auto) 0.0 10^3/uL (0.0-0.8) 07/24/23 21:03 Baso # (Auto) 0.0 10^3/uL (0.0-0.1) 07/24/23 21:03 Nucleated RBC % (auto) 0 % 07/24/23 21:03 Nucleated RBCs # 0.0 /100WBC 07/24/23 21:03 PT 15.10 SECONDS (12.1-14.9) H 07/24/23 21:03 INR 1.16 (0.8-1.2) 07/24/23 21:03 Specimen Type Arterial 07/24/23 21:10 Sample Site Radial, right 07/24/23 21:10 ABG pH 7.39 (7.35-7.45) 07/24/23 21:10 ABG pCO2 42.9 mmHg (35-45) 07/24/23 21:10 ABG pO2 43.0 mmHg (80.0-100.0) L 07/24/23 21:10 ABG HCO3 25.7 mmol/L (22-26) 07/24/23 21:10 ABG Base Excess 0.5 mmol/L (-2.0-2.0) 07/24/23 21:10 Get Test Pos 07/24/23 21:10 Hematocrit 35.2 % (42-52) L 07/24/23 21:10 Hgb O2 Saturation 88.8 % (95-100) L 07/24/23 20:49 Carboxyhemoglobin 0.4 %THgb (0.4-20.1) 07/24/23 20:49 Methemoglobin 0.6 % (0.4-1.5) 07/24/23 20:49 Total Hemoglobin 11.1 g/dL (14-18) L 07/24/23 20:49 O2 Delivery Device Nc 07/24/23 21:10 O2 Liters/Min 3.0 % 07/24/23 21:10 FiO2 32.0 % 07/24/23 21:10 Metal Bonding Press Operator ID Allie 07/24/23 21:10 Sodium 137 mmol/L (136-145) 07/24/23 21:03 Potassium 4.4 mmol/L (3.5-5.1) 07/24/23 21:03 Chloride 103 mmol/L (98-107) 07/24/23 21:03 Carbon Dioxide 25 mmol/L (22-29) 07/24/23 21:03 Anion Gap 13.4 (5-19) 07/24/23 21:03 BUN 45 mg/dL (8-23) H 07/24/23 21:03 Creatinine 2.1 mg/dL (0.7-1.2) H 07/24/23 21:03 GFR Calculation Not Reportable 07/24/23 21:03 Glucose 614 mg/dL (65-115) H* 07/24/23 21:03 POC Glucose > 600 mg/dL (70-110) H* 07/24/23 20:48 Calculated Osmolality 324 mOsm/kg (285-295) H 07/24/23 21:03 Lactic Acid 1.6 mmol/L (0.5-2.2) 07/24/23 21:03 Calcium 12.0 mg/dL (8.5-10.5) H 07/24/23 21:03 Total Bilirubin 0.4 mg/dL (0.15-1.2) 07/24/23 21:03 AST 21 U/L (0-40) 07/24/23 21:03 ALT 20 U/L (0-41) 07/24/23 21:03 Alkaline Phosphatase 171 U/L (40-130) H 07/24/23 21:03 Troponin T Baseline 489 ng/L (0-15) H* 07/24/23 21:03 C-Reactive Protein 247.1 mg/L (0.0-4.9) H 07/24/23 21:03 NT-Pro-B Natriuret Pep 8113 pg/mL (0-450) H 07/24/23 21:03 Total Protein 6.3 g/dL (6.6-8.7) L 07/24/23 21:03 Albumin 2.7 g/dL (3.5-5.2) L 07/24/23 21:03 Globulin 3.6 g/dL (1.3-4.6) 07/24/23 21:03 Lipase 30 U/L (13-60) 07/24/23 21:03 Serum Ketones Negative (Negative) 07/24/23 21:03 Discharge Plan Discharge Patient Disposition: Admitted As Inpatient Clinical Impression: Altered mental status, Hyperglycemia, Lung mass Condition: Stable Prescriptions: No Action clopidogrel 75 mg tablet 75 mg PO DAILY Lantus Solostar U-100 Insulin 100 unit/mL (3 mL) insulin pen 16 unit SUBCUT DAILY magnesium citrate [Citrate of Magnesia] Solution 150 ml PO DAILY nitroglycerin 0.4 mg tablet, sublingual 0.4 mg sublingual Q5M PRN (Reason: chest pain) Qty: 20 3RF Rx Instructions: do not exceed 3 doses per episode Lasix 20 mg tablet 20 mg PO QAM Rx Instructions: Takes 1 extra PRN Glucagon Emergency Kit (human) 1 mg recon soln 1 mg SUBCUT Q20M PRN (Reason: hypoglycemia) Qty: 3 3RF Rx Instructions: until target blood sugar attained (DME) Compression stockings See Rx Instructions .Route .MEDSUPPLY Qty: 6 0RF Rx Instructions: As directed by [facility] ondansetron 4 mg tablet,disintegrating 4 mg translingual Q4H PRN (Reason: nausea) Qty: 5 0RF Rx Instructions: Dissolve 1 tablet under tongue every 4 hours PRN for nausea bisacodyl 10 mg suppository 10 mg NM DAILY PRN (Reason: constipation) Qty: 5 0RF Rx Instructions: 1 suppository per rectum every day PRN for constipation. lorazepam 2 mg/mL concentrate 2 mg sublingual Q4H PRN (Reason: Anxiety/Seizure) Qty: 30 0RF Rx Instructions: 0.25ml-1ml q4H PRN Anxiety/Seizure Start 0.25ml may increase to 0.5ml-1ml q4H morphine concentrate 100 mg/5 mL (20 mg/mL) solution 20 mg sublingual DIRECTED PRN (Reason: Pain/SOB) 14 Days Qty: 30 0RF Rx Instructions: 0.25ml-1ml q1H PRN may increase to 0.5ml-1ml Q1H PRN atropine 1 % drops 4 drp sublingual Q4H PRN (Reason: secretions) Qty: 5 0RF Rx Instructions: 4 drops SL q 4 hours PRN for terminal congestion/excessive secretions. multivitamin Tablet 1 tab PO DAILY albuterol sulfate 90 mcg/actuation HFA aerosol inhaler 2 inh inhalation Q8H PRN (Reason: shortness of breath or wheezing) Qty: 8.5 2RF alprazolam [Xanax] 0.5 mg tablet 0.5 mg PO BID PRN (Reason: anxiety) Qty: 7 0RF Vitamin C 500 mg tablet 1 g PO DAILY insulin aspart U-100 [Novolog FlexPen U-100 Insulin] 100 unit/mL (3 mL) insulin pen 10 unit SUBCUT TID potassium chloride 20 mEq tablet extended release 20 meq PO DAILY losartan 100 mg Tablet 100 mg PO QPM Tylenol 325 mg Tablet 650 mg PO QID PRN (Reason: pain) hydrocodone-acetaminophen 5-325 mg Tablet 1 tab PO Q4H PRN (Reason: Pain) Referrals: Marcelo De Santiago DO [Primary Care Provider] - Patient Instructions: Hyponatremia (ED), Benzodiazepine Use Disorder (ED), Dementia (ED), Non-diabetic Hypoglycemia (ED), Hypoglycemia in a Person with Diabetes (ED), Concussion (ED), Alcohol Intoxication (ED), Subarachnoid Hemorrhage (GEN), Altered Mental Status (ED) Coding Level of Care Code ED Sharepoint Admin for Brandon Jaime
[2023-07-24 21:45] LABS: Blood Gas Allen Test Pos; Blood Gas Sample Site Radial, right; Blood Gas Sample Type Arterial; Methemoglobin 0.6 % (0.4-1.5)
[2023-07-24 21:46] LABS: INR 1.16 (0.8-1.2)
[2023-07-24 21:47] LABS: Ketone (Acetest) Serum Negative (Negative)
[2023-07-24 21:55] LABS: Lactic Sepsis W/Reflex 1.6 mmol/L (0.5-2.2)
[2023-07-24] MEDS: sodium chloride 0.9% 1,000 ML 999 ML IV (21:58)
[2023-07-24] MEDS: acetaminophen 1,000 MG/100 ML PIGGYBACK 400 MG IV (22:01)
[2023-07-24] MEDS: cefTRIAXone 1,000 MG in sodium chloride 0.9% (plus) 50 ML 100 MG IV (22:02)
[2023-07-24 22:04] LABS: Troponin(5th) Baseline 489 ng/L (0-15)
[2023-07-24 22:07] LABS: Alanine Aminotransferase 20 U/L (0-41); Albumin Level 2.7 g/dL (3.5-5.2); Alkaline Phosphatase 171 U/L (40-130); Anion Gap 13.4 (5-19); Aspartate Amino Transferase 21 U/L (0-40); Blood Urea Nitrogen 45 mg/dL (8-23); C Reactive Protein 247.1 mg/L (0.0-4.9); Carbon Dioxide 25 mmol/L (22-29); Chloride 103 mmol/L (98-107); Globulin 3.6 g/dL (1.3-4.6); Lipase 30 U/L (13-60); NT Pro B Type Natriuretic Pept 8113 pg/mL (0-450); Osmolality Calculated 324 mOsm/kg (285-295); Potassium 4.4 mmol/L (3.5-5.1); Sodium 137 mmol/L (136-145); Total Bilirubin 0.4 mg/dL (0.15-1.2); Total Protein 6.3 g/dL (6.6-8.7)
[2023-07-24 22:09] LABS: Glucose 614 mg/dL (65-115)
[2023-07-24] MEDS: methylPREDNISolone sod succ 125 MG in water for injection-sterile 2 ML 24 MG IVP (22:23)
[2023-07-24] MEDS: ipratropium-albuterol 3 mL Neb INHALATION (22:25)
[2023-07-24] MEDS: insulin regular-human 100 units/1 mL 14 UNIT IVP (22:27)
--- NOTE | 2023-07-24 22:46 | XRR_ITS ---
PROCEDURE INFORMATION: Exam: XR Left Hip Exam date and time: 07/24/2023 10:53 PM Age: 78 years old Clinical indication: Pain and injury or trauma; Fall; Other: N/a; Hip pain and pelvic pain; Left hip; Additional info: Fall with pain TECHNIQUE: Imaging protocol: Radiologic exam of the left hip. Views: 2 or 3 views hip with pelvis when performed. COMPARISON: CR (PELVIS, ) 07/22/2023 3:02 AM FINDINGS: Bones/joints: Mild osteoarthritis of the hips bilaterally. Soft tissues: Unremarkable. Vasculature: Scattered vascular calcifications. Other findings: Radiation treatment seeds over the prostate gland. XR/XR hip LT 2-3V wo/w pel* [id number] IMPRESSION: 1. Mild osteoarthritis of the hips bilaterally. 2. Radiation treatment seeds over the prostate gland. 3. Scattered vascular calcifications.
[2023-07-24 23:49] LABS: Troponin 5 2HR 443.7 ng/L (0-15)
--- NOTE | 2023-07-24 23:51 | PM.HP ---
Providers/Chief Complaint Admitting Physician: Trinidad Primary Care Provider: Marcelo De Santiago DO Chief Complaint: Fall History of Present Illness Garcia Lundy is a 78 year old male recently admitted to this hospital from 07/15/2023 to 07/19/2023. He was found to have a left upper lobe mass most likely malignant. With metastasis to liver peritoneum and also pelvis. He was found to have postobstructive pneumonia and hypercalcemia. This condition was managed with antibiotics and fluids. At time of discharge. Daughter and patient wish to pursue official diagnosis despite the fact that patient would not want treatment. The daughter was concerned of the health history of her and her siblings given that dad has had multiple cancers. The patient was discharged to [facility]. The daughter admits that the patient's condition was deteriorating over the last few months. His appetite had decreased patient had stopped taking his medications and had lost about 15 pounds in 1 month. I spoke with daughter sal. I gave her reassurance that patient's current cancer would not affect their health history. The most likely diagnosis is adenocarcinoma of the lung and whether this is due to prior treatment for lung cancer or is [place] it is secondary to his age and not genetic. I did explain the normal course of metastatic cancer and especially in her dad who is going to experience recurrent symptoms and recurrent hypercalemia. With new understanding, the daughter wishes to pursue hospice benefit and agrees to comfort measures only. Patient is experiencing symptoms is very agitated is having pain and dyspnea. Review of Systems General: Reports: ROS unobtainable due to medical condition Medications/Allergies Home Medications Medication Instructions Recorded Confirmed Last Taken Type clopidogrel 75 mg tablet 75 mg PO DAILY 07/29/21 07/22/23 07/18/23 History multivitamin 1 tab PO DAILY 12/22/21 07/22/23 07/21/23 History albuterol sulfate 90 mcg/actuation 2 inh inhalation Q8H PRN shortness 12/27/21 07/22/23 Unknown Rx aerosol inhaler of breath or wheezing #8.5 grams alprazolam 0.5 mg tablet (Xanax) 0.5 mg PO BID PRN anxiety #7 tabs 12/27/21 07/22/23 Unknown Rx magnesium citrate (Citrate of 150 ml PO DAILY 03/09/22 07/22/23 07/21/23 History Magnesia oral) glucagon 1 mg solution for 1 mg SUBCUT Q20M PRN hypoglycemia 06/15/22 07/22/23 Unknown Rx injection (Glucagon Emergency Kit) #3 ea nitroglycerin 0.4 mg sublingual 0.4 mg sublingual Q5M PRN chest 09/02/22 07/22/23 Unknown Rx tablet pain #20 tabs Compression stockings #6 ea 02/16/23 07/22/23 Unknown Rx ascorbic acid (vitamin C) 500 mg 1 g PO DAILY 03/03/23 07/22/23 07/21/23 History tablet (Vitamin C) furosemide 20 mg tablet (Lasix) 20 mg PO QAM 03/03/23 07/22/23 07/21/23 History insulin glargine 100 unit/mL (3 16 unit SUBCUT DAILY 03/03/23 07/22/23 07/21/23 History mL) subcutaneous pen (Lantus Solostar U-100 Insulin) insulin aspart U-100 100 unit/mL 10 unit SUBCUT TID 07/15/23 07/22/23 07/21/23 History (3 mL) subcutaneous pen (Novolog FlexPen U-100 Insulin aspart) losartan 100 mg tablet 100 mg PO QPM 07/15/23 07/22/23 07/21/23 History potassium chloride 20 mEq 20 meq PO DAILY 07/15/23 07/22/23 07/21/23 History tablet,extended release atropine 1 % eye drops 4 drp sublingual Q4H PRN 07/19/23 07/22/23 Unknown Rx secretions #5 mL bisacodyl 10 mg rectal suppository 10 mg DC DAILY PRN constipation #5 07/19/23 07/22/23 Unknown Rx ea lorazepam 2 mg/mL oral concentrate 2 mg sublingual Q4H PRN 07/19/23 07/22/23 Unknown Rx Anxiety/Seizure #30 mL morphine concentrate 100 mg/5 mL 20 mg sublingual DIRECTED PRN 07/19/23 07/22/23 Unknown Rx (20 mg/mL) oral solution Pain/SOB 14 days #30 mL ondansetron 4 mg disintegrating 4 mg translingual Q4H PRN nausea 07/19/23 07/22/23 Unknown Rx tablet #5 tabs acetaminophen 325 mg tablet 650 mg PO QID PRN pain 07/22/23 07/22/23 Unknown History (Tylenol) hydrocodone 5 mg-acetaminophen 325 1 tab PO Q4H PRN Pain 07/22/23 07/22/23 Unknown History mg tablet Allergies Allergy/AdvReac Type Severity Reaction Status Date / Time atorvastatin Allergy Unknown Unknown Verified 07/22/23 09:24 Penicillins Allergy Unknown Unknown Verified 07/22/23 09:24 niacin Allergy Unknown Verified 07/22/23 09:24 peanut Allergy ALGY-Anaphy Verified 07/22/23 09:24 laxis peanut oil Allergy ALGY-Anaphy Verified 07/22/23 09:24 laxis PFSH Acute PFSH: Medical History (Updated 07/25/23 @ 00:00 by Klaus Abdi DO) 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 pectoris Carotid artery disease CHF (congestive heart failure) Chronic kidney disease, stage III (moderate) Coronary artery disease due to type 2 diabetes mellitus Coronary stent occlusion Decubitus ulcer Essential hypertension Gastro-esophageal reflux disease without esophagitis History of left common carotid artery stent placement History of lung cancer History of prostate cancer Hyperlipidemia, unspecified Hypervitaminosis D Low back pain Malignant neoplasm of bronchus Mass of upper lobe of left lung Metastasis to liver Physical deconditioning Type 2 diabetes mellitus Type 2 diabetes mellitus with diabetic nephropathy Surgical History History of colonoscopy Internal carotid artery stent present Left-sided S/P CABG x 5 Family History Brother CHF (congestive heart failure) Mother Lymphoma Sister Cancer Father No problems noted. Social History Smoking and tobacco status: former smoker Quit status (tobacco): has quit using tobacco Year quit tobacco: 1984 Former quit date comment: Smoked 4.5 pack per day x 25 years Alcohol intake: former Substance/Drug Use: never Vitals/I&O/Wt Last Vital Signs Temp 100.2 F H 07/24/23 20:33 Pulse 128 H 07/24/23 22:27 Resp 24 H 07/24/23 22:27 BP 152/99 07/24/23 22:00 Pulse Ox 92 07/24/23 22:27 O2 Del Method Nasal Cannula 07/24/23 22:27 O2 Flow Rate 3 07/24/23 22:27 07/24/23 07/24/23 07/25/23 14:59 22:59 06:59 Intake Total 152 / 152 Balance 152 / 152 Weight last 48 hrs Weight 90.718 kg Physical Exam Narrative: 78-year-old male in moderate distress at time of examination. He is agitated with extremity tics. Neurologic patient is lethargic he will respond to his name and to touch. He is unable to formulate words. HEENT head is normocephalic atraumatic pupils equal round and reactive to light and accommodation extraocular muscles are intact there is no scleral icterus neck is supple no JVD carotid bruits or lymphadenopathy mucous membranes are dry. Chest is symmetric with respirations Cardiac distant heart sounds no loud murmur Respiratory increased respiratory rate clear to auscultation anteriorly and laterally Abdomen soft nontender nondistended positive bowel sounds no hepatosplenomegaly Extremities no clubbing cyanosis or edema in the lower extremities. Pain on palpation to the bilateral hips. Skin. Pale skin warm and dry to touch. Data 07/24/23 21:03 07/24/23 21:03 Micro: Microbiology 07/24/23 21:15 Blood Culture - Preliminary Blood SPECIMEN COLLECTED 07/24/23 21:03 Blood Culture - Preliminary Blood SPECIMEN COLLECTED CXR: My impression: Left upper lobe infiltrate. Patient has a known mass from CT on 07/15. Radiologist's impression: MPRESSION: 1. ? Left upper lobe pneumonia. 2. ? Cardiomegaly. 3. ? Emphysematous changes. CT Head: Radiologist's impression: No acute abnormality Xray Ortho: My impression: Left hip x-ray Radiologist's impression: Mild bilateral osteo arthritis A&P Assessment and plan (1) Altered mental status: (2) Fall: Qualifiers: Encounter type: initial encounter Qualified Code(s): W19.XXXA - Unspecified fall, initial encounter (3) Hyperglycemia: (4) Lung mass: (5) Metastasis to peritoneum: (6) Hypercalcemia of malignancy: (7) Metastasis to liver: Plan 1. Metastatic lung cancer to liver peritoneum and pelvis. Patient will be admitted to the hospital under the hospice benefit. I have contacted [facility] at home hospice for admission tomorrow. Patient will be placed on comfort measures only. We will start Roxanol and Ativan scheduled for the control of symptoms. The hope would be to stabilize the patient and return to [facility] in a day or two. 2. Hyper calcemia-will not treat as providing fluids will prolong the inevitable and a longer possibly more symptomatic course would ensue. Daughter is agreeable. 3. Hyperglycemia. Again will avoid diagnostic studies and treatments as this contributes to patient and family pain and suffering. 4. Patient is at high risk for secretions and throughout her. We will start atropine scheduled in the attempts to lessen secretions. Attestations Medical Necessity Statement*: Patient meets criteria for general inpatient hospice admission. Patient needs frequent monitoring and medication administration that cannot be performed adequately in the [facility] setting. Coding Level of Care Code Acute Code for Chg Fwd Diagnoses Altered mental status R41.82 Fall W19.XXXA Encounter type: initial encounter Hyperglycemia R73.9 Lung mass R91.8 Metastasis to peritoneum C78.6 Hypercalcemia of malignancy E83.52 Metastasis to liver C78.7
--- NOTE | 2023-07-25 00:58 | PC.NURSE ---
Patient non-responsive and does not answer questions. Unable to complete med rec or admission assessment at this time.
[2023-07-25] MEDS: morphine 10 mg/0.5 mL oral liq UD SUBLINGUAL (01:03)
[2023-07-25] MEDS: LORazepam 2 mg/mL oral liquid (mL) 0.5 MG PO (01:03)
[2023-07-25] MEDS: glycopyrrolate 0.2 mg/mL SDV 2 mL IV (01:29)
[2023-07-25] MEDS: LORazepam 2 mg/mL INJ 1 mL IVP (01:30)
[2023-07-25] MEDS: atropine 1% op soln 2 mL Btl 3 DROP SUBLINGUAL (01:44)
[2023-07-25] MEDS: morphine 4 mg/mL SDV 1 mL IVP ×3 (01:49→02:35)
[2023-07-25 02:15] VITALS: BP 90/58; PULSE 132; RESP 31; TEMP 36.7; O2SAT 73
[2023-07-25 02:33] LABS: Amphetamines Screen Urine Negative (Negative); Barbiturates Screen Urine Negative (Negative); Benzodiazepines Screen Urine Negative (Negative); Cocaine Screen Urine Negative (Negative); Opiate Screen Urine Positive (Negative); PCP Screen Urine Negative (Negative); THC Screen Urine Negative (Negative)
[2023-07-25 02:36] LABS: Add Urine Microscopic? YES; Bilirubin Urine Neg (Negative); Blood Urine 3+ (Negative); Glucose Urine UA 4+ (Normal); Ketones Urine Negative (Negative); Leukocyte Esterase Urine Negative (Negative); Nitrate Urine Negative (Negative); Protein Urine Trace (Negative); Specific Gravity, Urine 1.015 (1.005-1.030); Urine Appearance Clear (CLEAR); Urine Color Yellow (Yellow); Urobilinogen Urine Neg (Negative); pH Urine 6 (5-7)
[2023-07-25 02:37] LABS: RBC Urine 15-25 /hpf (0-2); Squamous Epithelial Cell Urine RARE /hpf (0-5); WBC Urine RARE /hpf (0-5)
[2023-07-25 02:40] LABS: Add Urine Culture? Yes
--- NOTE | 2023-07-25 03:25 | PC.NURSE ---
Patient's time of was called at 0315. Patient's daughter, Jacqueline, notified. Jacqueline stated she was going to come to the hospital to see the patient and decide on the home. Dr. Abdi was notified by this nurse. [facility] and LORAINE Matthewsbar tacker sewing machine was notified by LORAINE Goodman Charge.
[2023-07-25 04:44] LABS: Oxygen Device NC
[2023-07-25 04:49] LABS: ABG PCO2 40.2 mmHg (35-45); Base Excess ABG 0.2 mmol/L (-2.0-2.0); Carboxyhemoglobin 0.4 %THgb (0.4-20.1); HGB O2 Sat 88.8 % (95-100); PO2 ABG 63.3 mmHg (80.0-100.0); Total Hemoglobin 11.1 g/dL (14-18)
--- NOTE | 2023-07-25 05:09 | PM.DDS ---
Discharge Providers DDS Date of Admission: 07/24/23 23:54 Date Summary Completed: 07/25/23 Attending Provider at Admission: Klaus Abdi DO Attending Provider at Discharge: Klaus Abdi DO Primary Care Provider: Marcelo De Santiago DO DS Diagnoses Hospital Diagnoses (1) Altered mental status: (2) Fall: Qualifiers: Encounter type: initial encounter Qualified Code(s): W19.XXXA - Unspecified fall, initial encounter (3) Hyperglycemia: (4) Lung mass: (5) Metastasis to peritoneum: (6) Hypercalcemia of malignancy: (7) Metastasis to liver: Reason for Visit Reason for Visit Fall Brief History: Patient was recently diagnosed with lung cancer metastatic to liver peritoneum and bone. This was diagnosed approximately 07/15/2023. He was discharged subsequently on 07/19/2023 to [facility]. Patient sustained a fall and came to the emergency room on 07/22/2023 and he was discharged back. He again had a fall and concern for hip fracture on 07/24/23. Work-up in the emergency room was negative for hip fracture however he appeared septic again most likely from postobstructive pneumonia. He was confused agitated and looked acutely on chronically ill. Long discussion with patient's daughter occurred while the patient was in the emergency room. She elected to proceed with hospice and the plan was to do an admit to inpatient hospice in the morning. He was admitted for on comfort measures. Summary Summary Summary: Patient was admitted for comfort measures only. He was given Roxanol and Ativan. He remained agitated and uncomfortable. Nursing gave escalating doses of morphine for comfort. He received approximately 3 doses of morphine. He did settle down and become comfortable. His heart rate and blood pressure drastically increased. It appeared was eminent. Family was notified but unable to come in. The patient at 02 03. Additional Data Attending/PCP notified?: I am attending Was code activated?: No Autopsy requested?: No Advance directives?: No Hospice patient?: No Discharge Plan Discharge Patient Disposition: Condition: Stable Prescriptions: Discontinued clopidogrel 75 mg tablet 75 mg PO DAILY Lantus Solostar U-100 Insulin 100 unit/mL (3 mL) insulin pen 16 unit SUBCUT DAILY magnesium citrate [Citrate of Magnesia] Solution 150 ml PO DAILY nitroglycerin 0.4 mg tablet, sublingual 0.4 mg sublingual Q5M PRN (Reason: chest pain) Qty: 20 3RF Rx Instructions: do not exceed 3 doses per episode Lasix 20 mg tablet 20 mg PO QAM Rx Instructions: Takes 1 extra PRN Glucagon Emergency Kit (human) 1 mg recon soln 1 mg SUBCUT Q20M PRN (Reason: hypoglycemia) Qty: 3 3RF Rx Instructions: until target blood sugar attained (DME) Compression stockings See Rx Instructions .Route .MEDSUPPLY Qty: 6 0RF Rx Instructions: As directed by [facility] ondansetron 4 mg tablet,disintegrating 4 mg translingual Q4H PRN (Reason: nausea) Qty: 5 0RF Rx Instructions: Dissolve 1 tablet under tongue every 4 hours PRN for nausea bisacodyl 10 mg suppository 10 mg WI DAILY PRN (Reason: constipation) Qty: 5 0RF Rx Instructions: 1 suppository per rectum every day PRN for constipation. lorazepam 2 mg/mL concentrate 2 mg sublingual Q4H PRN (Reason: Anxiety/Seizure) Qty: 30 0RF Rx Instructions: 0.25ml-1ml q4H PRN Anxiety/Seizure Start 0.25ml may increase to 0.5ml-1ml q4H morphine concentrate 100 mg/5 mL (20 mg/mL) solution 20 mg sublingual DIRECTED PRN (Reason: Pain/SOB) 14 Days Qty: 30 0RF Rx Instructions: 0.25ml-1ml q1H PRN may increase to 0.5ml-1ml Q1H PRN atropine 1 % drops 4 drp sublingual Q4H PRN (Reason: secretions) Qty: 5 0RF Rx Instructions: 4 drops SL q 4 hours PRN for terminal congestion/excessive secretions. multivitamin Tablet 1 tab PO DAILY albuterol sulfate 90 mcg/actuation HFA aerosol inhaler 2 inh inhalation Q8H PRN (Reason: shortness of breath or wheezing) Qty: 8.5 2RF alprazolam [Xanax] 0.5 mg tablet 0.5 mg PO BID PRN (Reason: anxiety) Qty: 7 0RF Vitamin C 500 mg tablet 1 g PO DAILY insulin aspart U-100 [Novolog FlexPen U-100 Insulin] 100 unit/mL (3 mL) insulin pen 10 unit SUBCUT TID potassium chloride 20 mEq tablet extended release 20 meq PO DAILY losartan 100 mg Tablet 100 mg PO QPM Tylenol 325 mg Tablet 650 mg PO QID PRN (Reason: pain) hydrocodone-acetaminophen 5-325 mg Tablet 1 tab PO Q4H PRN (Reason: Pain) Discharge Orders: Discharge Order (Routine); Ordered 07/25/23 Ordered By: Klaus Abdi Referrals: Marcelo De Santiago DO [Primary Care Provider] - DS Attestations Time Spent in /Discharge Care*: less than 30 min Quality - AMI: AMI present?: No Quality - Stroke: CVA present?: No Quality - VTE: VTE present?: No Coding Level of Care Code Acute Code for Chg Fwd Diagnoses Altered mental status R41.82 Fall W19.XXXA Encounter type: initial encounter Hyperglycemia R73.9 Lung mass R91.8 Metastasis to peritoneum C78.6 Hypercalcemia of malignancy E83.52 Metastasis to liver C78.7
--- NOTE | 2023-07-25 05:09 | PC.NURSE ---
Saving site and [facility] both stated that patient is not a candidate and that he can be released. Awaiting for daughter to choose home. Body in morgue.
[2023-07-26 11:36] LABS: Glucose Point of Care 474 mg/dL (70-110)
== END 2023-07-25 04:50 | disposition expired ==
LOC: ER 23:46 → MEDSURG 07-25 02:10
PROVIDERS: Emergency Medicine; Admitting Provider Internal Medicine; Emergency Provider Emergency Medicine; PCP Emergency Medicine Emergency Medical Services; Visit Provider Internal Medicine
DX: R41.82 Altered mental status, unspecified (principal); Z91.81 History of falling; R73.9 Hyperglycemia, unspecified; R91.8 Other nonspecific abnormal finding of lung field; C78.6 Secondary malignant neoplasm of retroperitoneum and peritoneum; E83.52 Hypercalcemia; C78.7 Secondary malignant neoplasm of liver and intrahepatic bile duct
CPT/HCPCS: 36415; 36416; 36600; 70450; 71045; 73502; 80053; 80306; 81001; 82009; 82803; 82805; 82962; 83605; 83690; 83880; 84484; 85025; 85610; 86140; 87040; 87086; 93005; 94640; 96365; 96375; 99285; G0378; J0131; J0696; J1815; J2060; J2270; J2930; J3490; J7030